=== PATIENT | male | born 1955 | race Caucasian/White ===

== ENCOUNTER → 2018-02-16 12:54 | Outpatient (CLI) | payer BC, SELFPAY ==
--- NOTE | 2018-02-16 13:04 | MRI_ITS ---
STUDY: MRI BRAIN WITH AND WITHOUT CONTRAST (ATTENTION INTERNAL AUDITORY CANALS - I.A.C.'s) REASON FOR EXAM: Male, 62 years old. 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 TECHNIQUE: Standardized multiplanar fat and water weighted pulse sequences were obtained. 10 ml of Gadavist contrast material was administered intravenously for the contrast portion of the examination. COMPARISON: None. FINDINGS: Normal bilateral temporal bones. Normal bilateral internal auditory canals. There is no demonstrated intracanalicular or cisternal vestibular schwannoma (acoustic neuroma). There is no enhancement of the bilateral VIIth or VIIIth cranial nerves. Normal bilateral cochlea, vestibules and semicircular canals. Normal size of the ventricles and extra-axial spaces for the patient's age. Normal white matter tracts of the supratentorial brain. There is no evidence for recent intracranial ischemia or other cause of cytotoxic edema on diffusion weighted imaging (DWI). Normal bilateral basal ganglia. Normal thalami. Normal flow voids within the major intracranial circulation suggesting patency by spin echo criteria. Normal venous enhancement. There is no enhancing intra-axial or extra-axial abnormality. There is no extra-axial fluid accumulation. Normal sella turcica, pituitary gland, infundibular stalk, optic chiasm and hypothalamus. Normal tectal plate and pineal gland. Normal midbrain, levy and medulla. Normal cerebellum. Normal basal cisterns. No demonstrated orbital abnormality, within the constraints of a routine brain study. Normal visualized paranasal sinuses. Normal calvarium and skull base. Normal visualized soft tissue structures. Normal visualized upper cervical spine. MRI/Brain W/WO Contrast IMPRESSION: 1. Normal unenhanced and enhanced MRI of the bilateral internal auditory canals (I.A.C's). 2. Normal MRI of the brain. Electronically Signed: Henry Raya DO at 16:54 EDT Tel , Service support ,
[2018-02-16 13:26] LABS: CREATININE FINGERSTICK 1.2 mg/dL (0.70-1.30); EGFR FINGERSTICK > 60.0000 mL/min (>60)
== END ==
PROVIDERS: Family Provider Internal Medicine; PCP Internal Medicine; Visit Provider Otolaryngology
DX: H91.90 Unspecified hearing loss, unspecified ear (principal); H93.13 Tinnitus, bilateral
CPT/HCPCS: 70553; A9585

== ENCOUNTER → 2019-02-15 08:52 | Outpatient (CLI) | payer BC, SELFPAY ==
[2019-02-15 10:27] LABS: ALB/GLOB Ratio 1.5 RATIO (0.9-2.4); AST(SGOT) 62 U/L (15-37); Alanine Aminotransfer ALT/SGPT 38 U/L (16-61); Albumin, Serum 4.8 g/dL (3.2-5.0); Alkaline Phosphatase 50 U/L (45-117); Anion Gap 4 (5-15); BUN 15 mg/dL (7-18); BUN/Creat Ratio 8.3 RATIO (10-20); Calcium,Total 8.9 mg/dL (8.5-10.1); Chloride 103 mmol/L (98-107); Cholesterol 337 mg/dL (200); EST Glomerular Filtration Rate 41 mL/min (>60); Est Glom Filt Rate - Afr Amer 50 mL/min (>60); Globulin 3.1 g/dL (2.2-4.2); Glucose 81 mg/dL (74-106); High Density Lipoprotein 57 mg/dL; Potassium 4.4 mmol/L (3.5-5.1); Protein, Total 7.9 g/dL (6.4-8.2); Sodium Level 137 mmol/L (136-145); Triglycerides 179 mg/dL; Very Low Density Lipoprotein 36 mg/dL (5-40)
[2019-02-15 10:31] LABS: Vitamin D,25 Hydroxy 7.9 ng/mL (29.95-100.01)
[2019-02-15 10:54] LABS: Absolute Lymphocyte Count 1.95 X10^3/ul (0.83-4.51); Absolute Neutrophil Count 2.2 X10^3/uL (2.0-7.7); Basophil# 0.03 X10^3/uL; Basophil% 0.6 % (0-1); Differential Indicated SCAN CRITERIA MET; Eosinophil# 0.14 X10^3/uL; Hematocrit 32.7 % (40-54); Hemoglobin 10.5 g/dl (13.0-16.5); Lymphocyte # 1.95 X10^3/ul (4.0); Lymphocyte % 41.6 % (19-41); Mean Corp Hgb Conc 32.1 g/gl (32-36); Mean Corpuscular Hgb 33.9 pg (27.0-32.0); Mean Corpuscular Volume 105.5 fL (80-94); Mean Platelet Vol. 9.7 fl (6.2-12.0); Monocyte# 0.32 X10^3/uL; Monocyte% 6.8 % (0-10); Neutrophil % 46.9 % (47-70); POSITIVE COUNT NO; POSITIVE DIFFERENTIAL NO; POSITIVE MORPHOLOGY YES; Platelet Count 244 K/mm3 (150-450); RBC Distribution Width CV 13.7 % (11.6-14.6); RBC Distribution Width SD 51.6 fl (35.1-43.9); White Blood Count 4.7 K/mm3 (4.4-11.0)
[2019-02-16 16:35] LABS: Vitamin B12 478 pg/mL (211-911)
[2019-02-16 16:37] LABS: Ferritin 373 ng/mL (26-388); Iron 94 ug/dL (65-175); Iron Binding Capacity,Total 368 ug/dL (250-450); PERCENT IRON SATURATION 25.5 % (15.0-55.0)
== END ==
PROVIDERS: Family Provider Family Medicine; PCP Family Medicine; Referring Provider Family Medicine; Visit Provider Family Medicine
DX: N28.9 Disorder of kidney and ureter, unspecified (principal); E78.5 Hyperlipidemia, unspecified; D64.9 Anemia, unspecified
CPT/HCPCS: 36415; 80053; 80061; 82306; 82607; 82728; 83540; 83550; 85025

== ENCOUNTER → 2019-02-16 09:01 | Outpatient (CLI) | payer BC, SELFPAY ==
[2017-08-20 10:39] VITALS: BMI 25.1
[2019-02-16 09:04] LABS: Bacteria 0 SEEN /hpf (None Seen); Mucous, Urine 0 SEEN /hpf (<or=2+); Red Blood Cells-Urine 0 SEEN /hpf (0-5); Squamous Epithelial Cells - UA 0 SEEN /hpf (0-5); White Blood Cells 0 SEEN /hpf (0-5)
[2019-02-16 09:55] LABS: Color, Urine Yellow (Yellow); Glucose, Dipstick Normal (Normal); Ketone-Dipstick Negative (Negative); Leukocyte Esterase-Dipstick Negative /ul (Negative); Nitrite-Dipstick Negative (Negative); Occult Blood-Urine Negative /ul (Negative); Protein-Dipstick Negative (Negative); Specific Gravity, Urine 1.015 (1.002-1.030); Urine Bilirubin Dipstick Negative (Negative); Urine Clarity Clear (Clear); Urine Urobilinogen Normal (Normal); Urine pH 6.5 (5.0 - 8.0)
== END ==
PROVIDERS: Family Provider Family Medicine; PCP Family Medicine; Referring Provider Family Medicine; Visit Provider Family Medicine
DX: N28.9 Disorder of kidney and ureter, unspecified (principal); E78.5 Hyperlipidemia, unspecified
CPT/HCPCS: 81001

== ENCOUNTER → 2019-02-22 08:04 | Outpatient (CLI) | payer BC, SELFPAY ==
[2017-08-20 10:39] VITALS: BMI 25.1
[2019-02-22 10:51] LABS: ALB/GLOB Ratio 1.7 RATIO (0.9-2.4); AST(SGOT) 78 U/L (15-37); Alanine Aminotransfer ALT/SGPT 46 U/L (16-61); Albumin, Serum 4.5 g/dL (3.2-5.0); Alkaline Phosphatase 45 U/L (45-117); Anion Gap 9 (5-15); BUN 11 mg/dL (7-18); BUN/Creat Ratio 7.1 RATIO (10-20); Calcium,Total 8.7 mg/dL (8.5-10.1); Chloride 99 mmol/L (98-107); Creatinine, Serum 1.55 mg/dL (0.70-1.30); EST Glomerular Filtration Rate 49 mL/min (>60); Est Glom Filt Rate - Afr Amer 59 mL/min (>60); Globulin 2.7 g/dL (2.2-4.2); Glucose 70 mg/dL (74-106); Potassium 4.1 mmol/L (3.5-5.1); Protein, Total 7.2 g/dL (6.4-8.2); Sodium Level 137 mmol/L (136-145)
[2019-02-23 14:31] LABS: HEPATITIS B SURFACE AG Negative (Negative); Hep B Surface Antibodies Non Reactive (.); Hep C Antibodies 0.2 s/co ratio (0.0-0.9)
== END ==
PROVIDERS: Family Provider Family Medicine; PCP Family Medicine; Referring Provider Family Medicine; Visit Provider Family Medicine
DX: D64.9 Anemia, unspecified (principal); R94.5 Abnormal results of liver function studies
CPT/HCPCS: 36415; 80053; 82746; 86706; 86803; 87340

== ENCOUNTER → 2019-03-23 09:02 | Outpatient (CLI) | payer BC, SELFPAY ==
[2017-08-20 10:39] VITALS: BMI 25.1
[2019-03-23 10:18] LABS: Absolute Lymphocyte Count 2.13 X10^3/ul (0.83-4.51); Absolute Neutrophil Count 2.8 X10^3/uL (2.0-7.7); Basophil# 0.03 X10^3/uL; Basophil% 0.5 % (0-1); Eosinophil# 0.21 X10^3/uL; Eosinophils% 3.7 % (0-5); Hematocrit 31.3 % (40-54); Hemoglobin 10.4 g/dl (13.0-16.5); Lymphocyte # 2.13 X10^3/ul (4.0); Lymphocyte % 37.6 % (19-41); Mean Corp Hgb Conc 33.2 g/gl (32-36); Mean Corpuscular Hgb 33.7 pg (27.0-32.0); Mean Corpuscular Volume 101.3 fL (80-94); Mean Platelet Vol. 10.2 fl (6.2-12.0); Monocyte# 0.52 X10^3/uL; Monocyte% 9.2 % (0-10); Neutrophil # 2.76 X10^3/uL (2.7-7.7); Neutrophil % 48.8 % (47-70); Platelet Count 205 K/mm3 (150-450); RBC Distribution Width CV 13.5 % (11.6-14.6); RBC Distribution Width SD 49.9 fl (35.1-43.9); Red Blood Count 3.09 M/mm3 (4.6-6.2); White Blood Count 5.7 K/mm3 (4.4-11.0)
[2019-03-23 10:19] LABS: POSITIVE COUNT NO; POSITIVE DIFFERENTIAL NO; POSITIVE MORPHOLOGY NO
[2019-03-23 11:07] LABS: ALB/GLOB Ratio 1.7 RATIO (0.9-2.4); AST(SGOT) 159 U/L (15-37); Alanine Aminotransfer ALT/SGPT 125 U/L (16-61); Albumin, Serum 4.5 g/dL (3.2-5.0); Alkaline Phosphatase 65 U/L (45-117); Anion Gap 8 (5-15); BUN 20 mg/dL (7-18); BUN/Creat Ratio 11.6 RATIO (10-20); Calcium,Total 8.8 mg/dL (8.5-10.1); Chloride 102 mmol/L (98-107); Creatinine, Serum 1.72 mg/dL (0.70-1.30); EST Glomerular Filtration Rate 43 mL/min (>60); Est Glom Filt Rate - Afr Amer 52 mL/min (>60); Globulin 2.7 g/dL (2.2-4.2); Glucose 80 mg/dL (74-106); Magnesium 1.8 mg/dL (1.6-2.6); Potassium 3.6 mmol/L (3.5-5.1); Protein, Total 7.2 g/dL (6.4-8.2); Sodium Level 140 mmol/L (136-145)
== END ==
PROVIDERS: Family Provider Family Medicine; PCP Family Medicine; Referring Provider Family Medicine; Visit Provider Family Medicine
DX: D53.9 Nutritional anemia, unspecified (principal); R94.5 Abnormal results of liver function studies; I49.9 Cardiac arrhythmia, unspecified
CPT/HCPCS: 36415; 80053; 83735; 85025

== ENCOUNTER → 2019-04-03 09:10 | Outpatient (CLI) | payer BC, SELFPAY ==
--- NOTE | 2019-04-03 09:15 | US_ITS ---
STUDY: ABDOMINAL ULTRASOUND - RIGHT UPPER QUADRANT REASON FOR VISIT: Male, 63 years old. Elevated liver function tests TECHNIQUE: Ultrasound evaluation of the right upper quadrant was performed with real-time and static lyons-scale imaging. TECHNICAL QUALITY: Satisfactory COMPARISON: None. FINDINGS: Liver: The liver measures 16.7 cm. There is normal echogenicity of the liver. The bile ducts are within normal limits. There is hepatic color flow. The direction of portal flow is hepatopetal. There is no demonstrated mass lesion. Gallbladder: Normal distended gallbladder. The gallbladder wall measures 2 mm. There is a negative sonographic Araujo's sign. There is no pericholecystic fluid. There are no gallstones. Common Bile Duct (C.B.D.): The common bile duct measures 3.3 mm. Pancreas: Normal size of the head, body and tail of the pancreas. There is normal echogenicity of the pancreas. There is no demonstrated pancreatic mass or cyst. Right Kidney: Normal size of the right kidney. The right kidney measures 10.4 cm. Normal renal cortex. The right cortex measures 1.5 cm. There is no demonstrated renal mass or cyst. There is no right hydronephrosis. US/Liver IMPRESSION: Normal right upper quadrant ultrasound examination. Sonographically normal features of the liver parenchyma, gallbladder, biliary tree. Electronically Signed: Mulugeta Jeffers MD at 8:59 EDT Tel , Service support ,
== END ==
PROVIDERS: Family Provider Family Medicine; PCP Family Medicine; Referring Provider Family Medicine; Visit Provider Family Medicine
DX: R94.5 Abnormal results of liver function studies (principal)
CPT/HCPCS: 76705

== ENCOUNTER → 2019-04-17 08:19 | Outpatient (CLI) | payer BC, SELFPAY ==
[2017-08-20 10:39] VITALS: BMI 25.1
--- NOTE | 2019-04-17 08:21 | US_ITS ---
STUDY: RENAL ULTRASOUND - COMPLETE REASON FOR EXAM: Male, 63 years old. Hypertension TECHNIQUE: Ultrasound evaluation of the kidneys was performed with real-time and static ramírez-scale imaging. COMPARISON: None. FINDINGS: RIGHT KIDNEY: Normal location of the right kidney, which is normal in size. The right kidney measures 10.1 x 5.1 x 4.9 cm. There is a normal cortex of the right kidney. The renal cortex measures 1.7 cm. There is no right renal mass or cyst. There are no right renal calculi. There is no right hydronephrosis. DISTAL RIGHT URETER: There is non-visualization of the distal right ureter. There is no demonstrated right ureterovesical junction calculus. There is a visualized right ureteral jet. LEFT KIDNEY: Normal location of the left kidney, which is normal in size. The left kidney measures 10.8 x 6.4 x 5.8 cm. There is a normal cortex of the left kidney. The renal cortex measures 1.5 cm. There is a 1.9 cm simple cyst. There are no left renal calculi. There is no left hydronephrosis. DISTAL LEFT URETER: There is non-visualization of the distal left ureter. There is no demonstrated left ureterovesical junction calculus. There is a visualized left ureteral jet. AORTA: There is no elongation or tortuosity of the abdominal aorta. I.V.C.: The IVC is patent. BLADDER: The distended urinary bladder has a volume of 705.85 ml. The empty urinary bladder has a volume of 493.91 ml. There is a normal wall thickness of the distended urinary bladder. There is no demonstrated mass within the urinary bladder. There are no demonstrated bladder calculi. US/Kidney and Bladder IMPRESSION: There is an abnormally large postvoid residual within the bladder at 493.91 mL. This places the patient at risk for urinary reflux and UTIs. No obstructive uropathy, there is a simple 1.9 cm left renal cyst Electronically Signed: Dillan Tadeo MD at 11:30 EDT , Service support ,
== END ==
PROVIDERS: Family Provider Family Medicine; PCP Family Medicine; Referring Provider Family Medicine; Visit Provider Family Medicine
DX: I12.9 Hypertensive chronic kidney disease with stage 1 through stage 4 chronic kidney disease, or unspecified chronic kidney disease (principal); N18.3 Chronic kidney disease, stage 3 (moderate)
CPT/HCPCS: 76770

== ENCOUNTER → 2019-04-24 07:47 | Outpatient (CLI) | payer BC, SELFPAY ==
[2017-08-20 10:39] VITALS: BMI 25.1
--- NOTE | 2019-04-24 07:53 | RDU_ITS ---
Reason For Study: stage 3 CKD, HTN Right Renal Artery Left Renal Artery Right renal artery ostium Left renal artery ostium 106/23.1 127.8/37.8 RSV/EDV. PSV/EDV. Right renal artery proximal Left renal artery proximal PSV/EDV 136.5/46.5 PSV/EDV. 137.0/38.6 . Right renal artery mid 138.1/49.2 Left renal artery mid 124.1/41.2 PSV/EDV. PSV/EDV . Right renal artery distal Left renal artery distal 157.8/51.6 149.9/49.2 PSV/EDV. PSV/EDV. Right RAR 1.5. Left RAR 1.6. Right Renal Parenchyma Left Renal Parenchyma Upper Pole Medula 49.1/16.7 Left upper pole medulla 31.0/12.7. PSV/EDV. PSV/EDV . Right upper pole medulla EDR .34 . Left upper pole medulla EDR .41 . Right upper pole medulla R.I. .66 . Left upper pole medulla R.I. .59 . Upper Nestor Cortx 23.7/10.9 PSV/EDV. UP Cortex 20.8/8.2 PSV/EDV. Right upper pole cortex EDR .46 . Left upper pole cortex EDR .39 . Right upper pole cortex R.I. .54 . Left upper pole cortex R.I. .61 . Right lower Pole medulla 29.1/11.8 Left lower Pole medulla 43.4/13.7 PSV/EDV . PSV/EDV . Right lower pole medulla EDR .4 . Left lower pole medulla EDR .32 . Right lower pole medulla R.I. .6 . Left lower pole medulla R.I. .68 . Lower Pole Cortex 24.6/9.0 PSV/EDV. Lower Pole Cortx 16.4/8.2 PSV/EDV. Right lower pole cortex EDR .37 . Left lower pole cortex EDR .5 . Right lower pole cortex R.I. .63 . Left lower pole cortex R.I. .5 . Right Renal Hilar Left Renal Hilar Right hilar acceleration time 50 Left hilar acceleration time 40.0 m/sec. m/sec. Right Hilar avg 76.6/28.2 PSV/EDV. LT Hilar avg 40.5/13.4 PSV/EDV . Right Renal Dimensions Left Renal Dimensions Right kidney size 10.5 cm . Left kidney size 10.9 cm . Right cortical dimension 1.53 cm . Left cortical dimension 1.57 cm . Aorta Proximal abdominal aorta 1.67 x 1.75 cm . Proximal abdominal aorta peak systolic velocity is 99.0 cm/sec . Distal abdominal aorta 1.31 x 1.51 cm . Distal abdominal aorta peak systolic velocity is 53.3 cm/sec . Normal renal veins bilat. Interpretation Summary Dimensions of the intra-abdominal aorta appear normal, without evidence of aneurysmal dilatation. Renal artery velocities are bilaterally normal. Acceleration times are normal bilaterally. Renal- aortic ratios are also bilaterally normal. There is no evidence of hemodynamically significant renal artery stenosis on either side. Renovascular resistance appears to be bilaterally normal . The right cortical dimension is increased. The left cortical dimension is increased. Kidneys appear normal in size bilaterally. Ordering Physician: Sourav Giraldo Performed By: Cliff Davalos RVT
== END ==
PROVIDERS: Family Provider Family Medicine; PCP Family Medicine; Referring Provider Family Medicine; Visit Provider Family Medicine
DX: I12.9 Hypertensive chronic kidney disease with stage 1 through stage 4 chronic kidney disease, or unspecified chronic kidney disease (principal); N18.3 Chronic kidney disease, stage 3 (moderate)
CPT/HCPCS: 93975

== ENCOUNTER → 2019-05-21 08:08 | Outpatient (CLI) | payer BC, SELFPAY ==
[2019-05-21 10:03] LABS: Absolute Lymphocyte Count 1.56 X10^3/ul (0.83-4.51); Absolute Neutrophil Count 1.9 X10^3/uL (2.0-7.7); Basophil# 0.01 X10^3/uL; Basophil% 0.3 % (0-1); Eosinophil# 0.14 X10^3/uL; Eosinophils% 3.7 % (0-5); Hematocrit 29.3 % (40-54); Hemoglobin 9.3 g/dl (13.0-16.5); Lymphocyte # 1.56 X10^3/ul (4.0); Lymphocyte % 41.3 % (19-41); Mean Corp Hgb Conc 31.7 g/gl (32-36); Mean Corpuscular Hgb 33.5 pg (27.0-32.0); Mean Corpuscular Volume 105.4 fL (80-94); Mean Platelet Vol. 10.7 fl (6.2-12.0); Monocyte% 5.3 % (0-10); Neutrophil # 1.87 X10^3/uL (2.7-7.7); Neutrophil % 49.4 % (47-70); Platelet Count 148 K/mm3 (150-450); RBC Distribution Width CV 13.9 % (11.6-14.6); RBC Distribution Width SD 51.7 fl (35.1-43.9); Red Blood Count 2.78 M/mm3 (4.6-6.2); White Blood Count 3.8 K/mm3 (4.4-11.0)
[2019-05-21 10:04] LABS: POSITIVE COUNT NO; POSITIVE DIFFERENTIAL NO; POSITIVE MORPHOLOGY NO
[2019-05-21 10:23] LABS: ALB/GLOB Ratio 1.3 RATIO (0.9-2.4); AST(SGOT) 535 U/L (15-37); Alanine Aminotransfer ALT/SGPT 641 U/L (16-61); Albumin, Serum 4.1 g/dL (3.2-5.0); Alkaline Phosphatase 74 U/L (45-117); Anion Gap 5 (5-15); BUN 13 mg/dL (7-18); BUN/Creat Ratio 8.7 RATIO (10-20); Calcium,Total 8.3 mg/dL (8.5-10.1); Chloride 103 mmol/L (98-107); Cholesterol 117 mg/dL (200); EST Glomerular Filtration Rate 50 mL/min (>60); Est Glom Filt Rate - Afr Amer 61 mL/min (>60); Globulin 3.1 g/dL (2.2-4.2); Glucose 80 mg/dL (74-106); High Density Lipoprotein 72 mg/dL; Potassium 4.1 mmol/L (3.5-5.1); Protein, Total 7.2 g/dL (6.4-8.2); Sodium Level 140 mmol/L (136-145); Triglycerides 63 mg/dL; Very Low Density Lipoprotein 13 mg/dL (5-40)
[2019-05-21 11:04] LABS: Vitamin D,25 Hydroxy 91.7 ng/mL (29.95-100.01)
== END ==
PROVIDERS: Family Provider Family Medicine; PCP Family Medicine; Visit Provider Family Medicine
DX: D53.9 Nutritional anemia, unspecified (principal); R94.5 Abnormal results of liver function studies; E78.5 Hyperlipidemia, unspecified; E55.9 Vitamin D deficiency, unspecified
CPT/HCPCS: 36415; 80053; 80061; 82306; 85025

== ENCOUNTER → 2019-05-23 08:15 | Outpatient (CLI) | payer BC, SELFPAY ==
[2019-05-23 10:34] LABS: Vitamin B12 694 pg/mL (211-911)
[2019-05-23 11:14] LABS: ALB/GLOB Ratio 1.3 RATIO (0.9-2.4); AST(SGOT) 374 U/L (15-37); Alanine Aminotransfer ALT/SGPT 526 U/L (16-61); Albumin, Serum 4.3 g/dL (3.2-5.0); Alkaline Phosphatase 71 U/L (45-117); Anion Gap 8 (5-15); BUN 16 mg/dL (7-18); BUN/Creat Ratio 10.1 RATIO (10-20); CPK Total, Creatine Kinase 4742 U/L (39-308); Calcium,Total 8.9 mg/dL (8.5-10.1); Chloride 99 mmol/L (98-107); Creatinine, Serum 1.59 mg/dL (0.70-1.30); EST Glomerular Filtration Rate 47 mL/min (>60); Est Glom Filt Rate - Afr Amer 57 mL/min (>60); Ferritin 773 ng/mL (26-388); Globulin 3.2 g/dL (2.2-4.2); Glucose 76 mg/dL (74-106); Iron 112 ug/dL (65-175); Iron Binding Capacity,Total 389 ug/dL (250-450); LDH 1104 U/L (87-241); Magnesium 1.8 mg/dL (1.6-2.6); Potassium 3.9 mmol/L (3.5-5.1); Protein, Total 7.5 g/dL (6.4-8.2); Sodium Level 137 mmol/L (136-145)
[2019-05-25 12:05] LABS: Haptoglobin 94 mg/dL (34-200)
== END ==
PROVIDERS: Family Provider Family Medicine; PCP Family Medicine; Referring Provider Family Medicine; Visit Provider Family Medicine
DX: R25.2 Cramp and spasm (principal); D53.9 Nutritional anemia, unspecified; R94.5 Abnormal results of liver function studies
CPT/HCPCS: 36415; 80053; 82550; 82607; 82728; 82746; 83010; 83540; 83550; 83615; 83735

== ENCOUNTER → 2019-05-24 14:02 | Outpatient (CLI) | payer BC, SELFPAY ==
[2019-05-24 15:42] LABS: Immature Platelet Fraction 2.5 % (1.0-7.9); RET-HE 39.8 pg (30-35); Reticulocyte Count 1.45 % (0.5-1.5)
[2019-05-24 15:58] LABS: CPK Total, Creatine Kinase 4019 U/L (39-308)
== END ==
PROVIDERS: Family Provider Family Medicine; PCP Family Medicine; Referring Provider Family Medicine; Visit Provider Family Medicine
DX: M62.82 Rhabdomyolysis (principal); D64.9 Anemia, unspecified
CPT/HCPCS: 36415; 82550; 85045

== ENCOUNTER → 2019-05-25 14:50 | Outpatient (CLI) | payer BC, SELFPAY ==
[2017-08-20 10:39] VITALS: BMI 25.1
[2019-05-25 16:29] LABS: CPK Total, Creatine Kinase 4470 U/L (39-308)
== END ==
PROVIDERS: Family Provider Family Medicine; PCP Family Medicine; Referring Provider Family Medicine; Visit Provider Family Medicine
DX: M62.82 Rhabdomyolysis (principal)
CPT/HCPCS: 36415; 82550

== ENCOUNTER → 2019-05-29 13:44 | Outpatient (CLI) | payer BC, SELFPAY ==
[2017-08-20 10:39] VITALS: BMI 25.1
[2019-05-29 16:38] LABS: CPK Total, Creatine Kinase 4449 U/L (39-308)
== END ==
PROVIDERS: Family Provider Family Medicine; PCP Family Medicine; Referring Provider Family Medicine; Visit Provider Family Medicine
DX: R74.8 Abnormal levels of other serum enzymes (principal)
CPT/HCPCS: 36415; 82550

== ENCOUNTER 2019-05-29 17:25 | Inpatient (IN) | payer BC, SELFPAY ==
[2019-05-29 17:25] VITALS: BP 143/75; PULSE 69; RESP 16; TEMP 36.6; O2SAT 99; BMI 29.5
--- NOTE | 2019-05-29 17:46 | ED.VISSUMM ---
- ER Visit Summary Date of Service: 05/29/19 Chief Complaint: Elevated CPK History of Present Illness: The patient is a 63 M who presents with an elevated CPK that was noticed today. Patient had lab work done by his primary care physician which showed an elevated CPK of 4449. Patient was then referred to the emergency department. Patient states he had been on Crestor for the past 2 months and has been having myalgias. Patient also admits to some arthralgias in his lower extremities. Patient denies any fevers or chills. Patient denies any trauma or injuries. Patient denies any recent falls. Patient denies any dysuria or hematuria. Patient denies any dark urine. Patient denies any flank pain. Patient denies any nausea or vomiting. Physical Examination: Vital signs are stable. Patient is afebrile. Patient is in no acute distress. Oromucosa is pink and moist. Neck is supple. Trachea is midline. There is no JVD noted. Heart was regular rate and rhythm. Lungs are clear and equal bilaterally. Abdomen is soft. Bowel sounds are normal. There is no tenderness. Cranial nerves II through XII are intact. There are no focal motor or sensory deficits noted. Extremities are intact. There is good range of motion in all extremities. Test Results: CPK from earlier today was 4449. Creatinine was 1.61 which was only slightly increased from previous results. BUN was 20. Electrolytes were essentially within normal limits. ALT was slightly elevated 242 and AST was slightly elevated at 154. Urinalysis showed a pH of 7.0 and was otherwise normal. Emergency Department Course and Treatment: Patient was given IV fluids. Patient was given 50 mEq of sodium bicarbonate. Case was discussed with the hospitalist. Will admit the patient to his service. Disposition: Admit to hospital Impression: 1. Rhabdomyolysis This note was generated with Fees[employer] dictation software. It may contain incorrect words, spelling, and punctuation that were not noted in review of the chart prior to signing ED Disposition - Plan for ED Patient: Disposition: [facility]
[2019-05-29] MEDS: 0.9% Normal Saline 1,000 ML 1000 ML IV ×2 (17:56→20:29)
[2019-05-29] MEDS: Sodium Bicarbonate 8.4% 50 ML Syringe 50 MEQ IV (18:13)
[2019-05-29 18:38] LABS: ALB/GLOB Ratio 1.3 RATIO (0.9-2.4); AST(SGOT) 154 U/L (15-37); Alanine Aminotransfer ALT/SGPT 242 U/L (16-61); Albumin, Serum 4.5 g/dL (3.2-5.0); Alkaline Phosphatase 71 U/L (45-117); Anion Gap 5 (5-15); BUN 20 mg/dL (7-18); BUN/Creat Ratio 12.4 RATIO (10-20); Calcium,Total 9.1 mg/dL (8.5-10.1); Chloride 99 mmol/L (98-107); Creatinine, Serum 1.61 mg/dL (0.70-1.30); EST Glomerular Filtration Rate 47 mL/min (>60); Est Glom Filt Rate - Afr Amer 56 mL/min (>60); Estimated Creatinine Clearance 49.75 ml/min; Globulin 3.4 g/dL (2.2-4.2); Glucose 150 mg/dL (74-106); Potassium 3.4 mmol/L (3.5-5.1); Protein, Total 7.9 g/dL (6.4-8.2); Sodium Level 135 mmol/L (136-145)
[2019-05-29 18:54] LABS: Absolute Lymphocyte Count 1.95 X10^3/ul (0.83-4.51); Absolute Neutrophil Count 2.7 X10^3/uL (2.0-7.7); Basophil# 0.03 X10^3/uL; Basophil% 0.6 % (0-1); Eosinophil# 0.21 X10^3/uL; Eosinophils% 4.1 % (0-5); Hematocrit 33.9 % (40-54); Hemoglobin 11.3 g/dl (13.0-16.5); Lymphocyte # 1.95 X10^3/ul (4.0); Lymphocyte % 38.2 % (19-41); Mean Corp Hgb Conc 33.3 g/gl (32-36); Mean Corpuscular Hgb 34.3 pg (27.0-32.0); Mean Platelet Vol. 10.5 fl (6.2-12.0); Monocyte% 3.9 % (0-10); Neutrophil # 2.71 X10^3/uL (2.7-7.7); POSITIVE COUNT NO; POSITIVE DIFFERENTIAL NO; POSITIVE MORPHOLOGY NO; Platelet Count 191 K/mm3 (150-450); RBC Distribution Width CV 13.9 % (11.6-14.6); RBC Distribution Width SD 52.2 fl (35.1-43.9); Red Blood Count 3.29 M/mm3 (4.6-6.2); White Blood Count 5.1 K/mm3 (4.4-11.0)
[2019-05-29 19:22] LABS: Bacteria 0 SEEN /hpf (None Seen); Mucous, Urine 0 SEEN /hpf (<or=2+); Squamous Epithelial Cells - UA 0 SEEN /hpf (0-5); White Blood Cells 0 SEEN /hpf (0-5)
[2019-05-29 19:30] LABS: Color, Urine Straw (Yellow); Glucose, Dipstick Normal (Normal); Ketone-Dipstick Negative (Negative); Leukocyte Esterase-Dipstick Negative /ul (Negative); Nitrite-Dipstick Negative (Negative); Occult Blood-Urine Negative /ul (Negative); Protein-Dipstick Negative (Negative); Urine Bilirubin Dipstick Negative (Negative); Urine Clarity Clear (Clear); Urine Urobilinogen Normal (Normal)
[2019-05-29 19:56] LABS: Red Blood Cells-Urine 0-5 SEEN /hpf (0-5)
[2019-05-29 20:30] VITALS: BP 143/61; PULSE 71; RESP 16; O2SAT 97
--- NOTE | 2019-05-29 20:46 | PCM.HP.STD ---
Problem List (1) Rhabdomyolysis Status: Acute History of Present Illness Date of Admission: 05/29/19 Chief Complaint: abnormal outpatient lab. The patient is a 63 year old M with a significant history of hyperlipidemia; and BPH who presented to the emergency department because of abnormal outpatient labs. Reportedly his CPK taken on the same day of presentation was 4,449. Patient complains of muscle pain in his lower extremities. Also while at the emergency department he complained of pain that span across his ribs. Also his liver enzymes was found to be elevated at the emergency department. In emergency department patient was given normal saline IV infusion and bicarbonate. Patient was started on Crestor about 2 months ago. Past Medical History Medical History: Medical History (Last Updated 05/29/19 @ 21:51 by Rutsam Vaughn MD) HLD (hyperlipidemia) E78.5 Allergies Penicillins Adverse Reaction (Verified 08/20/17 10:39) Hives Home Medications: Ambulatory Orders Medication Instructions Recorded Tamsulosin HCl 0.4 mg PO DAILY 05/29/19 Surgical History: herniorrhaphy, rotator cuff repair, - - Patella tendon surgery; feet SURGERY Lives: Alone Smoking Status: Former smoker Alcohol: Occasional - *Family History Maternal History Items: Diabetes Paternal History Items: Cancer, Diabetes Review of Systems Constitutional: Denies: Chills, Fever, Weight Change HEENT: Denies: Head Aches, Sinus Congestion, Sinus Drainage Cardiovascular: Denies: Chest Pain, Palpitations Respiratory: Denies: Cough, Shortness of breath at rest, Sputum production Gastrointestinal: Denies: Abdominal Pain, Nausea, Vomiting Genitourinary: Denies: Dysuria Musculoskeletal: Reports: Joint Pain, Muscle pain. Denies: Joint Tenderness Skin: Denies: Rash, Wounds Neurological: Denies: Numbness, Tingling, Focal weakness Psychiatric: Denies: Anxiety, Depression, Homicidal Ideations, Suicidal Ideations Hematologic/ Lymphatic: Denies: Easy Bruising, Easy Bleeding VTE Information - Inpt Only VTE Present on Admission: No VTE Mechan Device Prophylaxis: None VTE Pharm Prophylaxis ordered?: Yes Patient Problems: Active and Suspected Problems (Last Updated 05/29/19 @ 21:51 by Rustam Vaughn MD) Rhabdomyolysis (Acute) - Physical Exam General: Alert, Oriented x3, Cooperative HEENT: Atraumatic, PERRLA, EOMI, Normocephalic Neck: Supple, No JVD, Negative Carotid Bruits Lungs: Clear to auscultation, Normal air movement Cardiovascular: Regular rate, No murmurs Abdomen: Bowel Sounds Present, Soft, Non Tender Extremities: No edema, Capillary Refill Less than 3 Seconds Skin: No rashes, No breakdown Musculoskeletal: No Tenderness to Palpation of Joints or Extremities Neurological: Cranial nerves II-XII grossly intact Psych/Mental Status: Normal Affect, Appropriate Vital Signs Temp Pulse Resp BP Pulse Ox 97.8 F 71 16 143/61 H 97 05/29/19 17:25 05/29/19 20:30 05/29/19 20:30 05/29/19 20:30 05/29/19 20:30 Oxygen Delivery Method Room Air Weight: 93.4 kg Body Mass Index (BMI) 29.5 Laboratory Tests Past 24 Hrs 05/29/19 05/29/19 05/29/19 17:55 17:55 19:15 WBC 5.1 RBC 3.29 L Hgb 11.3 L Hct 33.9 L MCV 103.0 H MCH 34.3 H MCHC 33.3 RDW 13.9 RDW Differential 52.2 H Plt Count 191 MPV 10.5 Immature Gran % (Auto) 0.200 Neut % (Auto) 53.0 Lymph % (Auto) 38.2 Perkins % (Auto) 3.9 Eos % (Auto) 4.1 Baso % (Auto) 0.6 Absolute Neuts (auto) 2.7 Absolute Lymphs (auto) 1.95 Total Counted Not Reportable Sodium 135 L Potassium 3.4 L Chloride 99 Carbon Dioxide 31.0 Anion Gap 5 BUN 20 H Creatinine 1.61 H Estim Creat Clear Calc 49.75 Est GFR (MDRD) Af Amer 56 L Est GFR (MDRD) Non-Af 47 L BUN/Creatinine Ratio 12.4 Glucose 150 H Calcium 9.1 Total Bilirubin 0.50 AST 154 H ALT 242 H Alkaline Phosphatase 71 Total Protein 7.9 Albumin 4.5 Globulin 3.4 Albumin/Globulin Ratio 1.3 Urine Color Straw Urine Clarity Clear Urine pH 7.0 Ur Specific [place] 1.010 Urine Protein Negative Urine Glucose (UA) Normal Urine Ketones Negative Urine Occult Blood Negative Urine Nitrite Negative Urine Bilirubin Negative Urine Urobilinogen Normal Ur Leukocyte Esterase Negative Urine RBC 0-5 SEEN Urine WBC 0 SEEN Ur Squamous Epith Cells 0 SEEN Urine Bacteria 0 SEEN Urine Mucus 0 SEEN Assessment/Plan All Active Problems (Last Updated 05/29/19 @ 21:51 by Rustam Vaughn MD) Rhabdomyolysis (Acute) The patient is a 63 year old M with a significant history of hyperlipidemia; and BPH who was recently started on Crestor with elevated CPK and LFT consistent with rhabdomyolysis Rhabdomyolysis Patient received normal saline IV fluid and bicarbonate emergency department. We will continue patient on normal saline. Trend CPK. Hold Crestor. Elevated liver enzymes. Review of labs shows that in 2019 patient of heart elevated liver enzymes If his Crestor was started about 2 months ago then his elevated liver enzymes preceded his Crestor use. In any case Crestor may be worsening his elevated liver enzymes. Hold Crestor for now. Hypokalemia Mild Replaced. Trend BMP. Hyponatremia Mild Replaced Trend BMP BPH Flomax continued DVT prophylaxis Subcutaneous Lovenox ordered. Code Visit OBSV E&M: 14895 Initial observation care L3
[2019-05-29 22:07] VITALS: BMI 28.0
[2019-05-29 22:13] VITALS: BMI 28.1
[2019-05-29 22:29] VITALS: BP 125/76; PULSE 52; RESP 14; TEMP 36.4; O2SAT 98
[2019-05-29] MEDS: 0.9% Normal Saline 1,000 ML 150 ML IV (22:37)
[2019-05-30] VITALS (11 sets, daily range): BP systolic 107–140; BP diastolic 70–90; PULSE 44–65; RESP 16; TEMP 36.3–36.6; O2SAT 95–97
[2019-05-30] MEDS: 0.9% Normal Saline 1,000 ML 150 ML IV ×2 (04:44→11:22)
--- NOTE | 2019-05-30 04:57 | EKG12_ITS ---
Test Reason : BRADYCARDIA Blood Pressure : / mmHG Vent. Rate : 042 BPM Atrial Rate : 042 BPM P-R Int : 184 ms QRS Dur : 132 ms QT Int : 520 ms P-R-T Axes : 080 072 065 degrees QTc Int : 434 ms Marked sinus bradycardia Right bundle branch block Abnormal ECG Confirmed by JOVANY CHUNG, ELKIN ([id number]), state editor LILLY TOTH ([id number]) on 06/04/2019 1:56:11 PM Referred By: JANA Confirmed By:ELKIN MANZO MD
[2019-05-30 07:37] LABS: Anion Gap 8 (5-15); BUN 17 mg/dL (7-18); BUN/Creat Ratio 12.7 RATIO (10-20); CPK Total, Creatine Kinase 3753 U/L (39-308); Calcium,Total 8.1 mg/dL (8.5-10.1); Chloride 105 mmol/L (98-107); Creatinine, Serum 1.34 mg/dL (0.70-1.30); EST Glomerular Filtration Rate 57 mL/min (>60); Est Glom Filt Rate - Afr Amer 70 mL/min (>60); Estimated Creatinine Clearance 59.77 ml/min; Glucose 78 mg/dL (74-106); Potassium 4.2 mmol/L (3.5-5.1); Sodium Level 140 mmol/L (136-145)
[2019-05-30] MEDS: Tamsulosin HCl 0.4 MG Capsule PO (09:39)
[2019-05-30] MEDS: Enoxaparin 40 MG/0.4 ML Syringe SC (09:39)
[2019-05-30 09:58] LABS: Magnesium 1.7 mg/dL (1.6-2.6)
--- NOTE | 2019-05-30 13:20 | CASEMGMT ---
RN SUJEY Face to Face with patient for initial transition planning/care coordination assessment. RN CM introduced self and role at [facility]. Patient lying in bed, alert and oriented. Patient willing to participate in assessment and is able to answer all questionsappropriately. Care providers, pharmacy, and demographics verified. Patient wishes to discharge home, denies need for home health at this time. Patient states he has no further needs or concerns at this time. CM to follow for discharge planning needs thatmay arise. PCP: Kristal Specialists: None Preferred Pharmacy: [facility] Insurance: [place] Prescription Benefit: yes Living Will/HPOA: yes, brother Timothy Drew LNOK: Brother Living Arrangements: patient lives alone in 1 story home with 2 steps to enter the home. Transportation: self/brother DME/HHC: Patient denies need for DME and HHC. Disposition Plan: Patient to discharge home with family support and follow-up plans in place. Grazyna JONES, RN, CM
--- NOTE | 2019-05-30 14:07 | CHAPLAIN ---
Type of Pastoral Visit _x__ Initial Visit ___ Follow-up Visit ___ On-call Visit ___ General Patient Visit ___ Spiritual Assessment ___ Family Conference ___ Bereavement ___ Rapid Response ___ Code Blue ___ Other (describe below) Pastoral Care Referral From _x__ Patient ___ Family ___ Nurse ___ Physician ___ Engineering Inspector ___ Cut Off Operator Scorer ___ Other (describe below) Sacrament/Intervention _x__ Active listening ___ Anointing ___ Congregational ___ Bereavement ___ Communion ___ Jsesica exploration ___ ___ Life review ___ Prayer ___ Reconciliation ___ Sacrament of Sick ___ Supportive presence ___ Wedding ___ Other (describe below) Pastoral Comments
--- NOTE | 2019-05-30 14:16 | PN_ITS ---
Patient Problems: Active and Suspected Problems (Last Updated 05/29/19 @ 21:51 by Rustam Vaughn MD) Rhabdomyolysis (Acute) Subjective: Patient was recently started on Crestor about 2 months ago. Admitted with rhabdomyolysis. Patient had lipid profile done as an outpatient and states his total cholesterol was about 337 in January 2019 and was started on Crestor, dose unclear but last lipid profile as per the patient brought the cholesterol down to 117 in April 2019 as per the patient. Patient complains of mild lower extremity weakness but strength is 5/5. Complain of muscle pain. Vitals/I&O's: Vital Signs Temp Pulse Resp BP Pulse Ox 97.7 F L 65 16 140/90 H 96 05/30/19 09:36 05/30/19 09:40 05/30/19 09:36 05/30/19 09:36 05/30/19 09:36 Oxygen Delivery Method Room Air Weight: 196 lb 3.382 oz Body Mass Index (BMI) 28.0 Intake and Output for Last 24 Hours 05/28/19 05/29/19 05/30/19 23:59 23:59 23:59 Intake Total 2967 / 2967 Output Total 2950 / 2950 Balance General: Alert, Oriented x3, Cooperative HEENT: Atraumatic, PERRLA, EOMI, Normocephalic Neck: Supple, No JVD, Negative Carotid Bruits Lungs: Clear to auscultation, No rhonchi, No wheeze, No rales, Diminished Cardiovascular: Regular rate, Regular Rhythm, Normal S1, Normal S2, No murmurs Abdomen: Bowel Sounds Present, Soft, Non Tender, Non-Distended Extremities: No edema, Capillary Refill Less than 3 Seconds Skin: No rashes, No breakdown Musculoskeletal: No Tenderness to Palpation of Joints or Extremities, Arthritic Changes, - - No tenderness to the palpation of thigh or calf muscles. Lymphatic: No Cervical, Supraclavicular, or Inguinal Adenopathy Neurological: Cranial nerves II-XII grossly intact, Deep Tendon Reflexes 2+/4 and Symmetrical, Neuro grossly intact, Motor Exam 5/5 strength throughout - At major joints are knee and hip joints Psych/Mental Status: Normal Affect, Appropriate Laboratory Results 05/29/19 17:55: WBC 5.1, RBC 3.29 L, Hgb 11.3 L, Hct 33.9 L, MCV 103.0 H, MCH 34.3 H, MCHC 33.3, RDW 13.9, RDW Differential 52.2 H, Plt Count 191, MPV 10.5, Immature Gran % (Auto) 0.200, Neut % (Auto) 53.0, Lymph % (Auto) 38.2, Leon % (Auto) 3.9, Eos % (Auto) 4.1, Baso % (Auto) 0.6, Absolute Neuts (auto) 2.7, Abs olute Lymphs (auto) 1.95, Total Counted Not Reportable 05/29/19 17:55: Sodium 135 L, Potassium 3.4 L, Chloride 99, Carbon Dioxide 31.0, Anion Gap 5, BUN 20 H, Creatinine 1.61 H, Estim Creat Clear Calc 49.75, Est GFR (MDRD) Af Amer 56 L, Est GFR (MDRD) Non-Af 47 L, BUN/Creatinine Ratio 12.4, Glucose 150 H, Calcium 9.1, Total Bilirubin 0.50, AST 154 H, ALT 242 H, Alkaline Phosphatase 71, Total Protein 7.9, Albumin 4.5, Globulin 3.4, Albumin/Globulin Ratio 1.3 05/29/19 19:15: Urine Color Straw, Urine Clarity Clear, Urine pH 7.0, Ur Specific [place] 1.010, Urine Protein Negative, Urine Glucose (UA) Normal, Urine Ketones Negative, Urine Occult Blood Negative, Urine Nitrite Negative, Urine Bilirubin Negative, Urine Urobilinogen Normal, Ur Leukocyte Esterase Negative, Urine RBC 0-5 SEEN, Urine WBC 0 SEEN, Ur Squamous Epith Cells 0 SEEN, Urine Bacteria 0 SEEN, Urine Mucus 0 SEEN 05/30/19 06:12: Sodium 140, Potassium 4.2, Chloride 105, Carbon Dioxide 27.0, Anion Gap 8, BUN 17, Creatinine 1.34 H, Estim Creat Clear Calc 59.77, Est GFR (MDRD) Af Amer 70, Est GFR (MDRD) Non-Af 57 L, BUN/Creatinine Ratio 12.7, Glucose 78, Calcium 8.1 L, Total Creatine Kinase 3753 H 05/30/19 06:12: Phosphorus 3.0, Magnesium 1.7 Current Medications Acetaminophen (Tylenol) 650 mg PO Q6H PRN PRN PRN Reason: Mild Pain (1-3)/Temp > 100.7 F Enoxaparin Sodium (Lovenox) 40 mg SC DAILY@1000 ELYSIA Last Admin: 05/30/19 09:39 Dose: 40 mg Documented by: Sodium Chloride () 1,000 mls @ 150 mls/hr IV .Q6H40M PENDING SALE TO [facility] Stop: 05/30/19 14:45 Last Admin: 05/30/19 11:22 Dose: 150 mls/hr Documented by: Sodium Chloride () 10 - 40 ml IV UD PRN PRN Reason: SALINE FLUSH Tamsulosin HCl (Flomax) 0.4 mg PO DAILY PENDING SALE TO [facility] Last Admin: 05/30/19 09:39 Dose: 0.4 mg Documented by: Medical Necessity - Tobacco Use Smoking Status: Former smoker Assessment/Plan All Active Problems (Last Updated 05/29/19 @ 21:51 by Rustam Vaughn MD) Rhabdomyolysis (Acute) The patient is a 63 year old M with a significant history of lipidemia on Crestor was admitted with rhabdomyolysis. Patient had lipid profile done as an outpatient and states his total cholesterol was about 337 in January 2019 and was started on Crestor, dose unclear but last lipid profile as per the patient brought the cholesterol down to 117 in April 2019 as per the patient. 1. Rhabdomyolysis Patient received normal saline IV fluid and bicarbonate emergency department. Last BMP shows bicarb 27, K4.2, sodium and chloride normal. Christer is on hold. CPK 3753. Monitor CPK daily. 2. Elevated liver enzymes secondary to Crestor/drug induced liver injury: ALT 242, AST 154. Total bili and alkaline phosphatase are normal. Transaminases have been slowly increasing up. ALT 125 February 2019 to 526 in April 2019. AST 78 in January 2019 to 374 in April 2019. Liver enzymes are normal prior to January 2019 therefore slowly increasing secondary to Crestor. 3. Mild hyponatremia and mild hypokalemia: Sodium and potassium replaced. Monitor electrolytes and replace accordingly. 4. BPH Flomax continued DVT prophylaxis Subcutaneous Lovenox ordered. Code Visit Inpatient E&M: 92565 Subs Hosp L3
[2019-05-31] VITALS (8 sets, daily range): BP systolic 97–151; BP diastolic 62–84; PULSE 40–60; RESP 16–18; TEMP 36.5–36.6; O2SAT 96–98
[2019-05-31 08:13] LABS: Anion Gap 6 (5-15); BUN 14 mg/dL (7-18); BUN/Creat Ratio 9.7 RATIO (10-20); CPK Total, Creatine Kinase 3099 U/L (39-308); Calcium,Total 8.2 mg/dL (8.5-10.1); Chloride 104 mmol/L (98-107); Creatinine, Serum 1.44 mg/dL (0.70-1.30); EST Glomerular Filtration Rate 53 mL/min (>60); Est Glom Filt Rate - Afr Amer 64 mL/min (>60); Estimated Creatinine Clearance 55.62 ml/min; Glucose 72 mg/dL (74-106); Magnesium 1.9 mg/dL (1.6-2.6); Phosphorus 3.2 mg/dL (2.5-4.9); Potassium 4.1 mmol/L (3.5-5.1); Sodium Level 139 mmol/L (136-145)
[2019-05-31] MEDS: Tamsulosin HCl 0.4 MG Capsule PO (09:35)
[2019-05-31] MEDS: Enoxaparin 40 MG/0.4 ML Syringe SC (10:44)
[2019-05-31] MEDS: 0.9% NaCl Peripheral Flush Adult/Peds IV (10:46)
[2019-05-31] MEDS: 0.9% Normal Saline 1,000 ML 100 ML IV ×2 (10:46→21:02)
[2019-05-31 11:05] LABS: AST(SGOT) 102 U/L (15-37); Alanine Aminotransfer ALT/SGPT 168 U/L (16-61); Albumin, Serum 3.6 g/dL (3.2-5.0); Alkaline Phosphatase 60 U/L (45-117); Bilirubin, Direct 0.09 mg/dL (0.00-0.30); Globulin 2.9 g/dL (2.2-4.2); Protein, Total 6.5 g/dL (6.4-8.2)
--- NOTE | 2019-05-31 14:04 | PCM.PN.HOSP ---
Patient Problems: Active and Suspected Problems (Last Updated 05/29/19 @ 21:51 by Rustam Vaughn MD) Rhabdomyolysis (Acute) Subjective: Patient has dark yellow urine in the morning. Patient's CK is still high. Creatinine 1.44 not much change from yesterday. Electrolytes are normal. Patient denies renal angle pain or suprapubic bladder pain. No fever or chills. Vitals/I&O's: Vital Signs Temp Pulse Resp BP Pulse Ox 98 F 52 L 16 151/84 H 98 05/31/19 13:55 05/31/19 13:55 05/31/19 13:55 05/31/19 13:55 05/31/19 13:55 Oxygen Delivery Method Room Air Weight: 196 lb 3.382 oz Body Mass Index (BMI) 28.0 Intake and Output for Last 24 Hours 05/29/19 05/30/19 05/31/19 23:59 23:59 23:59 Intake Total 4167 / 4167 2300 / 2300 Output Total 4385 / 4385 2350 / 2350 Balance -218 / -218 -50 / -50 General: Alert, Oriented x3, Cooperative HEENT: Atraumatic, PERRLA, EOMI, Normocephalic Neck: Supple, No JVD, Negative Carotid Bruits Lungs: Clear to auscultation, Normal air movement, No rhonchi, No wheeze, No rales Cardiovascular: Regular rate, Regular Rhythm, Normal S1, Normal S2, No murmurs Abdomen: Bowel Sounds Present, Soft, Non Tender, Non-Distended Extremities: No edema, Capillary Refill Less than 3 Seconds Skin: No rashes, No breakdown Musculoskeletal: No Tenderness to Palpation of Joints or Extremities, - - Mild muscle weakness. No tenderness. Neurological: Cranial nerves II-XII grossly intact, Deep Tendon Reflexes 2+/4 and Symmetrical, Neuro grossly intact, Motor Exam 5/5 strength throughout - Patient feels subjective weakness but on exam 5/5. Psych/Mental Status: Normal Affect, Appropriate Laboratory Results 05/31/19 06:10: Sodium 139, Potassium 4.1, Chloride 104, Carbon Dioxide 29.0, Anion Gap 6, BUN 14, Creatinine 1.44 H, Estim Creat Clear Calc 55.62, Est GFR (MDRD) Af Amer 64, Est GFR (MDRD) Non-Af 53 L, BUN/Creatinine Ratio 9.7 L, Glucose 72 L, Calcium 8.2 L, Phosphorus 3.2, Magnesium 1.9, Total Creatine Kinase 3099 H 05/31/19 06:10: Total Creatine Kinase Cancelled 05/31/19 06:10: Total Bilirubin 0.50, Direct Bilirubin 0.09, AST 102 H, ALT 168 H, Alkaline Phosphatase 60, Total Protein 6.5, Albumin 3.6, Globulin 2.9 Current Medications Acetaminophen (Tylenol) 650 mg PO Q6H PRN PRN PRN Reason: Mild Pain (1-3)/Temp > 100.7 F Enoxaparin Sodium (Lovenox) 40 mg SC DAILY@1000 ELYSIA Last Admin: 05/31/19 10:44 Dose: 40 mg Documented by: Sodium Chloride () 1,000 mls @ 100 mls/hr IV .Q10H ELYSIA Stop: 06/01/19 06:09 Last Admin: 05/31/19 10:46 Dose: 100 mls/hr Documented by: Sodium Chloride () 10 - 40 ml IV UD PRN PRN Reason: SALINE FLUSH Last Admin: 05/31/19 10:46 Dose: 10 ml Documented by: Tamsulosin HCl (Flomax) 0.4 mg PO DAILY ELYSIA Last Admin: 05/31/19 09:35 Dose: 0.4 mg Documented by: Medical Necessity - Tobacco Use Smoking Status: Former smoker Assessment/Plan All Active Problems (Last Updated 05/29/19 @ 21:51 by Rustam Vaughn MD) Rhabdomyolysis (Acute) The patient is a 63 year old M with a significant history of lipidemia on Crestor was admitted with rhabdomyolysis. Patient had lipid profile done as an outpatient and states his total cholesterol was about 337 in January 2019 and was started on Crestor, dose unclear but last lipid profile as per the patient brought the cholesterol down to 117 in April 2019 as per the patient. 1. Rhabdomyolysis Patient received normal saline IV fluid and bicarbonate emergency department. Last BMP shows bicarb 27, K4.2, sodium and chloride normal. Cholesterol on hold. CPK 3753. 05/31/2019: CK still high at 3099. IV fluid normal saline at 100 mL hour for 24 hours to continue. Monitor intake and output. Monitor CPK daily. 2. Acute kidney injury on CKD stage III since January 2019: Patient last normal creatinine was in July 2017 1.1. In January 2019 1.8 and then 1.5-1.6 until April 2019. Patient this time came with creatinine 1.6. Gradually improving. There has not been much change in BUN since January 2019. Stays 15 to 17 mg/dL. Monitor electrolytes and kidney function daily. BUN normal. 3. Elevated liver enzymes secondary to Crestor/drug induced liver injury: ALT 242, AST 154. Total bili and alkaline phosphatase are normal. Transaminases have been slowly increasing up. ALT 125 February 2019 to 526 in April 2019. AST 78 in January 2019 to 374 in April 2019. Liver enzymes are normal prior to January 2019 therefore slowly increasing secondary to Crestor. Transaminases are getting better. 3. Mild hyponatremia and mild hypokalemia: Sodium and potassium replaced. Monitor electrolytes and replace accordingly. 05/31/2019: Normal. 4. BPH Flomax continued DVT prophylaxis Subcutaneous Lovenox ordered. Laboratory Results 05/31/19 06:10: Sodium 139, Potassium 4.1, Chloride 104, Carbon Dioxide 29.0, Anion Gap 6, BUN 14, Creatinine 1.44 H, Estim Creat Clear Calc 55.62, Est GFR (MDRD) Af Amer 64, Est GFR (MDRD) Non-Af 53 L, BUN/Creatinine Ratio 9.7 L, Glucose 72 L, Calcium 8.2 L, Phosphorus 3.2, Magnesium 1.9, Total Creatine Kinase 3099 H 05/31/19 06:10: Total Creatine Kinase Cancelled 05/31/19 06:10: Total Bilirubin 0.50, Direct Bilirubin 0.09, AST 102 H, ALT 168 H, Alkaline Phosphatase 60, Total Protein 6.5, Albumin 3.6, Globulin 2.9 Code Visit Inpatient E&M: 77980 Subs Hosp L3
[2019-06-01 03:57] VITALS: BP 108/70; PULSE 54; RESP 16; TEMP 36.4; O2SAT 97
[2019-06-01] MEDS: 0.9% NaCl Peripheral Flush Adult/Peds IV (06:56)
[2019-06-01 07:03] VITALS: O2SAT 94
[2019-06-01 07:56] LABS: ALB/GLOB Ratio 1.2 RATIO (0.9-2.4); AST(SGOT) 112 U/L (15-37); Alanine Aminotransfer ALT/SGPT 172 U/L (16-61); Albumin, Serum 3.8 g/dL (3.2-5.0); Alkaline Phosphatase 69 U/L (45-117); Anion Gap 7 (5-15); BUN 13 mg/dL (7-18); BUN/Creat Ratio 9.2 RATIO (10-20); CPK Total, Creatine Kinase 3112 U/L (39-308); Calcium,Total 8.5 mg/dL (8.5-10.1); Chloride 104 mmol/L (98-107); Creatinine, Serum 1.42 mg/dL (0.70-1.30); EST Glomerular Filtration Rate 54 mL/min (>60); Est Glom Filt Rate - Afr Amer 65 mL/min (>60); Estimated Creatinine Clearance 56.41 ml/min; Globulin 3.2 g/dL (2.2-4.2); Glucose 69 mg/dL (74-106); Potassium 4.1 mmol/L (3.5-5.1); Sodium Level 138 mmol/L (136-145)
[2019-06-01 08:05] VITALS: BP 117/81; PULSE 53; RESP 18; TEMP 36.5; O2SAT 98
[2019-06-01] MEDS: Tamsulosin HCl 0.4 MG Capsule PO (08:08)
[2019-06-01] MEDS: Enoxaparin 40 MG/0.4 ML Syringe SC (08:08)
[2019-06-01] MEDS: Lactated Ringers 1,000 ML 150 ML IV (09:10)
--- NOTE | 2019-06-01 09:29 | DCINST_ITS ---
- Discharge Diagnoses Current Active Problems: Current Active and Chronic Problems (Last Updated 05/29/19 @ 21:51 by Rustam Vaughn MD) Rhabdomyolysis (Acute) You will use the following diet at home:: Cardiac Your food should be the consistency of: Regular Discharge Activity: May Not Drive - for 3-4 weeks until cleared by PCP Additional Activity Instructions:: Patient advised off work for 3 weeks and avoiding any strenuous muscle exercise, climbing flights of stairs AND running due to acute rhabdomyolysis Call your doctor if you observe: Fever of 101 or Higher, Numbness or Tingling, Inability to urinate, Inability to have a bowel movement, Shortness of breath, Dizziness, Fainting spells, Swelling in the ankles, Chest pain, Increased palpitations (irregular heartbeat) Allergies/Adverse Reactions: Allergies Penicillins Adverse Reaction (Verified 08/20/17 10:39) Hives Medications to take at Discharge Tamsulosin HCl 0.4 mg PO DAILY 05/29/19 Primary Care Physician: Sourav Giraldo MD [Primary Care Provider] - Test Results: Test results from this visit will be discussed in further detail at your follow- up appointment, if applicable. Please Follow Up With: Debra Forman MD When: IN 1-2 Weeks for KIRSTIN sec to Rhabdomyolysis
--- NOTE | 2019-06-01 09:31 | DS.PCM_ITS ---
Discharge Date and Diagnosis - Problem List Patient Problems: Active and Suspected Problems (Last Updated 05/29/19 @ 21:51 by Rustam Vaughn MD) Rhabdomyolysis (Acute) Date of Admission: 05/29/19 Date of Discharge: 06/01/19 - Primary Discharge Diagnosis Active and Suspected Problems (Last Updated 05/29/19 @ 21:51 by Rustam Vaughn MD) Rhabdomyolysis (Acute) Hospital Course and Treatment Summary of Care Provided: [] The patient is a 63 year old M with a significant history of lipidemia on Crestor was admitted with rhabdomyolysis. Patient had lipid profile done as an outpatient and states his total cholesterol was about 337 in January 2019 and was started on Crestor, dose unclear but last lipid profile as per the patient brought the cholesterol down to 117 in April 2019 as per the patient. 1. Rhabdomyolysis Patient received normal saline IV fluid and bicarbonate emergency department. Last BMP shows bicarb 27, K4.2, sodium and chloride normal. Cholesterol on hold. CPK 3753. 05/31/2019: CK still high at 3099. IV fluid normal saline at 100 mL hour for 24 hours to continue. Monitor intake and output. 06/01/2019: CPK came down marginally from about 3700?3100. This is not the expected therefore [facility] was called and discussed with Dr. Forman and advised Ringer lactate for 1 L and patient can go home as he wished to go home. Follow-up BMP in 1 week along with CPK. Follow-up with [facility]. Keep holding Crestor. 2. Acute kidney injury on CKD stage III since January 2019: Patient last normal creatinine was in July 2017 1.1. In January 2019 1.8 and then 1.5-1.6 until April 2019. Patient this time came with creatinine 1.6. Gradually improving. There has not been much change in BUN since January 2019. Stays 15 to 17 mg/dL. 06/01/2019: BUN 13/creatinine 1.42. I think patient baseline creatinine is about 1.5, he had in April 2019. KIRSTIN resolved. 3. Elevated liver enzymes secondary to Crestor/drug induced liver injury: ALT 242, AST 154. Total bili and alkaline phosphatase are normal. Transaminases have been slowly increasing up. ALT 125 February 2019 to 526 in April 2019. AST 78 in January 2019 to 374 in April 2019. Liver enzymes are normal prior to January 2019 therefore slowly increasing secondary to Crestor. ALT and AST have improved. 3. Mild hyponatremia and mild hypokalemia: Sodium and potassium replaced. Hyponatremia and hypokalemia resolved. 05/31/2019: Normal. 4. BPH Flomax continued DVT prophylaxis Subcutaneous Lovenox ordered. Discharge medication reconciliation done. Discharge follow-up instructions completed. Discharge process discussed with the patient and all questions were answered to patient's satisfaction. Follow with PCP in 1 to 2 weeks. Follow-u p with [facility] in 1 week with follow-up BMP and CPK. Total time spent, exact 35 minutes on discharge meds reconciliation, examination, review of imaging and blood test and discussion with the patient on follow-up instructions. Laboratory Results 06/01/19 06:13: Sodium 138, Potassium 4.1, Chloride 104, Carbon Dioxide 27.0, Anion Gap 7, BUN 13, Creatinine 1.42 H, Estim Creat Clear Calc 56.41, Est GFR (MDRD) Af Amer 65, Est GFR (MDRD) Non-Af 54 L, BUN/Creatinine Ratio 9.2 L, Glucose 69 L, Calcium 8.5, Total Bilirubin 0.50, AST 112 H, ALT 172 H, Alkaline Phosphatase 69, Total Creatine Kinase 3112 H, Total Protein 7.0, Albumin 3.8, Globulin 3.2, Albumin/Globulin Ratio 1.2 Patient Problems: Active and Suspected Problems (Last Updated 05/29/19 @ 21:51 by Rustam Vaughn MD) Rhabdomyolysis (Acute) Subjective: Patient stated he has chronic arthritis of both hip joints, knees joint and ankle joint even before starting on Crestor. Patient wants to go home. Denies muscle pain or difficulty walking. Patient was seen walking around the nursing station under supervision of physical therapist - Physical Exam General: Alert, Oriented x3, Cooperative HEENT: Atraumatic, PERRLA, EOMI, Normocephalic Neck: Supple, No JVD, Negative Carotid Bruits Lungs: Clear to auscultation, Normal air movement, No rhonchi, No wheeze, No rales Cardiovascular: Regular rate, Regular Rhythm, Normal S1, Normal S2, No murmurs Abdomen: Bowel Sounds Present, Soft, Non Tender, Non-Distended Extremities: No edema, Capillary Refill Less than 3 Seconds Skin: No rashes, No breakdown Musculoskeletal: No Tenderness to Palpation of Joints or Extremities, Arthritic Changes Neurological: Cranial nerves II-XII grossly intact, Deep Tendon Reflexes 2+/4 and Symmetrical, Neuro grossly intact, Motor Exam 5/5 strength throughout Psych/Mental Status: Normal Affect, Appropriate Vital Signs Temp Pulse Resp BP Pulse Ox 97.7 F L 53 L 18 117/81 H 98 06/01/19 08:05 06/01/19 08:05 06/01/19 08:05 06/01/19 08:05 06/01/19 08:05 Oxygen Delivery Method Room Air Weight: 196 lb 3.382 oz Body Mass Index (BMI) 28.0 Intake and Output for Last 24 Hours 05/30/19 05/31/19 06/01/19 23:59 23:59 23:59 Intake Total 4167 / 4167 5598 / 5598 741 / 741 Output Total 4385 / 4385 5800 / 5800 600 / 600 Balance -218 / -218 -202 / -202 141 / 141 Laboratory Tests Past 24 Hrs 05/31/19 06/01/19 06:10 06:13 Sodium 138 Potassium 4.1 Chloride 104 Carbon Dioxide 27.0 Anion Gap 7 BUN 13 Creatinine 1.42 H Estim Creat Clear Calc 56.41 Est GFR (MDRD) Af Amer 65 Est GFR (MDRD) Non-Af 54 L BUN/Creatinine Ratio 9.2 L Glucose 69 L Calcium 8.5 Total Bilirubin 0.50 0.50 Direct Bilirubin 0.09 AST 102 H 112 H ALT 168 H 172 H Alkaline Phosphatase 60 69 Total Creatine Kinase 3112 H Total Protein 6.5 7.0 Albumin 3.6 3.8 Globulin 2.9 3.2 Albumin/Globulin Ratio 1.2 Discharge Activity: May Not Drive - for 3-4 weeks until cleared by PCP Additional Activity Instructions:: Patient advised off work for 3 weeks and avoiding any strenuous muscle exercise, climbing flights of stairs AND running due to acute rhabdomyolysis Call your doctor if you observe: Fever of 101 or Higher, Numbness or Tingling, Inability to urinate, Inability to have a bowel movement, Shortness of breath, Dizziness, Fainting spells, Swelling in the ankles, Chest pain, Increased palpitations (irregular heartbeat) Home Medications: Medications to take at Discharge Tamsulosin HCl 0.4 mg PO DAILY 05/29/19 Primary Care Physician: Sourav Giraldo MD [Primary Care Provider] - Please Follow Up With: Debra Forman MD When: IN 1-2 Weeks for KIRSTIN sec to Rhabdomyolysis Medical Necessity - Tobacco Use Smoking Status: Former smoker Meaningful Use Info Meaningful Use Diagnoses (Choose all that apply): None applicable Code Visit Inpatient E&M: 27367 Disch Hosp
[2019-06-01 14:10] VITALS: BP 149/81; PULSE 68; RESP 18; TEMP 36.8; O2SAT 98
--- NOTE | 2019-06-04 15:38 | CASEMGMT ---
RN CM DC Call DC Date: 06/01/19 DC Disposition: Home DX: Rhabdomylosis Strata/LACE: 09/30 Intro role of CM to patient via phone. Pt states he does not have questions re: dc instructions, f/u or prescriptions. States he is doing well. Divine OSWALDN RN ACM
== END 2019-06-01 16:34 | disposition home or self-care (01) | DRG 558 ==
LOC: ED 18:08 → MS3 21:34
PROVIDERS: Admitting Provider Hospitalist; Emergency Provider Emergency Medicine; Family Provider Family Medicine; PCP Family Medicine; Visit Provider Internal Medicine
DX: M62.82 Rhabdomyolysis (principal); E87.1 Hypo-osmolality and hyponatremia; R74.8 Abnormal levels of other serum enzymes; E87.6 Hypokalemia; N40.0 Benign prostatic hyperplasia without lower urinary tract symptoms; E78.5 Hyperlipidemia, unspecified; N18.3 Chronic kidney disease, stage 3 (moderate); K71.9 Toxic liver disease, unspecified; T46.6X5A Adverse effect of antihyperlipidemic and antiarteriosclerotic drugs, initial encounter
CPT/HCPCS: 36415; 80048; 80053; 80076; 81001; 82550; 83735; 84100; 85025; 93005; 97161; 97165; 97530; 99284; J7030; J7120; A4216

== ENCOUNTER → 2019-06-04 09:19 | Outpatient (CLI) | payer BC, SELFPAY ==
[2019-05-29 22:07] VITALS: BMI 28.0
[2019-06-04 11:49] LABS: ALB/GLOB Ratio 1.3 RATIO (0.9-2.4); AST(SGOT) 126 U/L (15-37); Alanine Aminotransfer ALT/SGPT 167 U/L (16-61); Alkaline Phosphatase 67 U/L (45-117); Anion Gap 7 (5-15); BUN 13 mg/dL (7-18); BUN/Creat Ratio 8.8 RATIO (10-20); CPK Total, Creatine Kinase 3541 U/L (39-308); Calcium,Total 8.3 mg/dL (8.5-10.1); Chloride 101 mmol/L (98-107); Creatinine, Serum 1.47 mg/dL (0.70-1.30); EST Glomerular Filtration Rate 52 mL/min (>60); Est Glom Filt Rate - Afr Amer 62 mL/min (>60); Glucose 87 mg/dL (74-106); Potassium 3.6 mmol/L (3.5-5.1); Sodium Level 140 mmol/L (136-145)
== END ==
PROVIDERS: Family Provider Family Medicine; PCP Family Medicine; Referring Provider Internal Medicine; Visit Provider Internal Medicine
DX: M62.82 Rhabdomyolysis (principal)
CPT/HCPCS: 36415; 80053; 82550

== ENCOUNTER → 2019-06-08 15:59 | Outpatient (CLI) | payer BC, SELFPAY ==
[2019-05-29 22:07] VITALS: BMI 28.0
[2019-06-08 18:40] LABS: ALB/GLOB Ratio 1.2 RATIO (0.9-2.4); AST(SGOT) 103 U/L (15-37); Alanine Aminotransfer ALT/SGPT 149 U/L (16-61); Alkaline Phosphatase 71 U/L (45-117); Anion Gap 4 (5-15); BUN 16 mg/dL (7-18); BUN/Creat Ratio 10.8 RATIO (10-20); CPK Total, Creatine Kinase 2245 U/L (39-308); Chloride 100 mmol/L (98-107); Creatinine, Serum 1.48 mg/dL (0.70-1.30); EST Glomerular Filtration Rate 51 mL/min (>60); Est Glom Filt Rate - Afr Amer 62 mL/min (>60); Globulin 3.3 g/dL (2.2-4.2); Glucose 75 mg/dL (74-106); Potassium 3.9 mmol/L (3.5-5.1); Protein, Total 7.3 g/dL (6.4-8.2); Sodium Level 137 mmol/L (136-145)
== END ==
PROVIDERS: Family Provider Family Medicine; PCP Family Medicine; Visit Provider Family Medicine
DX: M62.82 Rhabdomyolysis (principal); R94.5 Abnormal results of liver function studies
CPT/HCPCS: 36415; 80053; 82550

== ENCOUNTER → 2019-06-15 08:16 | Outpatient (CLI) | payer BC, SELFPAY ==
[2019-05-29 22:07] VITALS: BMI 28.0
[2019-06-15 10:46] LABS: ALB/GLOB Ratio 1.4 RATIO (0.9-2.4); AST(SGOT) 209 U/L (15-37); Alanine Aminotransfer ALT/SGPT 317 U/L (16-61); Albumin, Serum 4.2 g/dL (3.2-5.0); Alkaline Phosphatase 73 U/L (45-117); Anion Gap 7 (5-15); BUN 15 mg/dL (7-18); BUN/Creat Ratio 9.9 RATIO (10-20); CPK Total, Creatine Kinase 3031 U/L (39-308); Calcium,Total 8.9 mg/dL (8.5-10.1); Chloride 100 mmol/L (98-107); Creatinine, Serum 1.52 mg/dL (0.70-1.30); EST Glomerular Filtration Rate 50 mL/min (>60); Est Glom Filt Rate - Afr Amer 60 mL/min (>60); Glucose 72 mg/dL (74-106); Potassium 4.4 mmol/L (3.5-5.1); Protein, Total 7.2 g/dL (6.4-8.2); Sodium Level 138 mmol/L (136-145)
== END ==
PROVIDERS: Family Provider Family Medicine; PCP Family Medicine; Referring Provider Family Medicine; Visit Provider Family Medicine
DX: M62.82 Rhabdomyolysis (principal)
CPT/HCPCS: 36415; 80053; 82550

== ENCOUNTER → 2019-06-28 09:01 | Outpatient (CLI) | payer BC, SELFPAY ==
[2019-05-29 22:07] VITALS: BMI 28.0
[2019-06-28 10:47] LABS: ALB/GLOB Ratio 1.2 RATIO (0.9-2.4); AST(SGOT) 94 U/L (15-37); Alanine Aminotransfer ALT/SGPT 145 U/L (16-61); Albumin, Serum 3.9 g/dL (3.2-5.0); Alkaline Phosphatase 88 U/L (45-117); Anion Gap 8 (5-15); BUN 19 mg/dL (7-18); BUN/Creat Ratio 12.9 RATIO (10-20); CPK Total, Creatine Kinase 2848 U/L (39-308); Calcium,Total 8.5 mg/dL (8.5-10.1); Chloride 101 mmol/L (98-107); Creatinine, Serum 1.47 mg/dL (0.70-1.30); EST Glomerular Filtration Rate 52 mL/min (>60); Est Glom Filt Rate - Afr Amer 62 mL/min (>60); Globulin 3.2 g/dL (2.2-4.2); Glucose 109 mg/dL (74-106); Potassium 3.8 mmol/L (3.5-5.1); Protein, Total 7.1 g/dL (6.4-8.2); Sodium Level 139 mmol/L (136-145)
== END ==
PROVIDERS: Family Provider Family Medicine; PCP Family Medicine; Referring Provider Family Medicine; Visit Provider Family Medicine
DX: N18.3 Chronic kidney disease, stage 3 (moderate) (principal)
CPT/HCPCS: 36415; 80053; 82550

== ENCOUNTER → 2019-07-12 09:17 | Outpatient (CLI) | payer BC, SELFPAY ==
[2019-07-12 11:19] LABS: CPK Total, Creatine Kinase 4173 U/L (39-308)
== END ==
PROVIDERS: Family Provider Family Medicine; PCP Family Medicine; Referring Provider Family Medicine; Visit Provider Family Medicine
DX: N18.3 Chronic kidney disease, stage 3 (moderate) (principal)
CPT/HCPCS: 36415; 82550

== ENCOUNTER → 2019-07-24 11:20 | Outpatient (CLI) | payer BC, SELFPAY ==
[2019-07-24 14:15] LABS: Absolute Lymphocyte Count 2.03 X10^3/uL (0.83-4.51); Absolute Neutrophil Count 2.8 X10^3/uL (2.0-7.7); Basophil# 0.05 X10^3/uL; Basophil% 0.9 % (0-1); Eosinophil# 0.13 X10^3/uL; Eosinophils% 2.4 % (0-5); Hematocrit 34.7 % (40-54); Hemoglobin 11.2 g/dL (13.0-16.5); Lymphocyte # 2.03 X10^3/ul (4.0); Lymphocyte % 37.8 % (19-41); Mean Corp Hgb Conc 32.3 g/dL (32-36); Mean Corpuscular Volume 105.5 fL (80-94); Mean Platelet Vol. 10.8 fl (6.2-12.0); Monocyte# 0.37 X10^3/uL; Monocyte% 6.9 % (0-10); NRBC Flagged by Analyzer 0 % (0-5); Neutrophil # 2.76 X10^3/uL (2.7-7.7); Neutrophil % 51.4 % (47-70); Platelet Count 196 K/mm3 (150-450); RBC Distribution Width CV 13.3 % (11.6-14.6); RBC Distribution Width SD 51.8 fl (35.1-43.9); Red Blood Count 3.29 M/mm3 (4.6-6.2); White Blood Count 5.4 K/mm3 (4.4-11.0)
[2019-07-24 14:27] LABS: Vitamin D,25 Hydroxy 30.5 ng/mL (29.95-100.01)
[2019-07-24 14:40] LABS: ALB/GLOB Ratio 1.1 RATIO (0.9-2.4); AST(SGOT) 71 U/L (15-37); Alanine Aminotransfer ALT/SGPT 53 U/L (16-61); Alkaline Phosphatase 61 U/L (45-117); Anion Gap 5 (5-15); BUN 14 mg/dL (7-18); BUN/Creat Ratio 9.6 RATIO (10-20); CPK Total, Creatine Kinase 2784 U/L (39-308); Calcium,Total 8.5 mg/dL (8.5-10.1); Chloride 102 mmol/L (98-107); Creatinine, Serum 1.46 mg/dL (0.70-1.30); EST Glomerular Filtration Rate 52 mL/min (>60); Est Glom Filt Rate - Afr Amer 63 mL/min (>60); Globulin 3.5 g/dL (2.2-4.2); Glucose 77 mg/dL (74-106); Potassium 4.1 mmol/L (3.5-5.1); Protein, Total 7.5 g/dL (6.4-8.2); Sodium Level 138 mmol/L (136-145)
== END ==
PROVIDERS: Family Provider Family Medicine; PCP Family Medicine; Referring Provider Family Medicine; Visit Provider Family Medicine
DX: N18.3 Chronic kidney disease, stage 3 (moderate) (principal); M62.82 Rhabdomyolysis; D64.9 Anemia, unspecified; E55.9 Vitamin D deficiency, unspecified
CPT/HCPCS: 36415; 80053; 82306; 82550; 85025

== ENCOUNTER → 2019-07-26 08:16 | Outpatient (CLI) | payer BC, SELFPAY ==
[2019-07-26 10:30] LABS: Vitamin B12 642 pg/mL (211-911)
[2019-07-26 10:40] LABS: LDH 707 U/L (87-241)
[2019-07-27 13:00] LABS: Haptoglobin 84 mg/dL (34-200)
== END ==
PROVIDERS: Family Provider Family Medicine; PCP Family Medicine; Referring Provider Family Medicine; Visit Provider Family Medicine
DX: D53.9 Nutritional anemia, unspecified (principal)
CPT/HCPCS: 36415; 82607; 82746; 83010; 83615

== ENCOUNTER → 2019-09-04 08:57 | Outpatient (CLI) | payer BC, SELFPAY ==
[2019-07-31 15:07] VITALS: BMI 28.0
[2019-09-04 10:49] LABS: ALB/GLOB Ratio 1.2 RATIO (0.9-2.4); AST(SGOT) 117 U/L (15-37); Alanine Aminotransfer ALT/SGPT 74 U/L (16-61); Albumin, Serum 4.2 g/dL (3.2-5.0); Alkaline Phosphatase 69 U/L (45-117); Anion Gap 7 (5-15); BUN 20 mg/dL (7-18); BUN/Creat Ratio 14.3 RATIO (10-20); CPK Total, Creatine Kinase 4309 U/L (39-308); Calcium,Total 8.8 mg/dL (8.5-10.1); Chloride 100 mmol/L (98-107); EST Glomerular Filtration Rate 55 mL/min (>60); Est Glom Filt Rate - Afr Amer 66 mL/min (>60); Globulin 3.4 g/dL (2.2-4.2); Glucose 98 mg/dL (74-106); Protein, Total 7.6 g/dL (6.4-8.2); Sodium Level 138 mmol/L (136-145)
== END ==
PROVIDERS: Family Provider Family Medicine; PCP Family Medicine; Referring Provider Family Medicine; Visit Provider Family Medicine
DX: M62.82 Rhabdomyolysis (principal); R94.5 Abnormal results of liver function studies
CPT/HCPCS: 36415; 80053; 82550

== ENCOUNTER → 2019-09-06 13:59 | Outpatient (CLI) | payer BC, SELFPAY ==
[2019-07-31 15:07] VITALS: BMI 28.0
[2019-09-06 17:39] LABS: T4 Free Direct 0.12 ng/dL (0.76-1.46)
[2019-09-10 20:52] LABS: Anti-Thyroglobulin AB < 1.0 IU/mL (0.0-0.9); Thyroglobulin, Serum Qt. 5.4 ng/mL (1.4-29.2); Thyroid Peroxidase AB > 600 IU/mL (0-34)
== END ==
PROVIDERS: Family Provider Family Medicine; PCP Family Medicine; Referring Provider Family Medicine; Visit Provider Family Medicine
DX: R79.89 Other specified abnormal findings of blood chemistry (principal)
CPT/HCPCS: 36415; 84432; 84439; 84443; 86376; 86800

== ENCOUNTER → 2019-10-11 08:31 | Outpatient (CLI) | payer BC, SELFPAY ==
[2019-07-31 15:07] VITALS: BMI 28.0
[2019-10-11 10:16] LABS: Hematocrit 32.4 % (40-54); Hemoglobin 10.4 g/dL (13.0-16.5); Mean Corp Hgb Conc 32.1 g/dL (32-36); Mean Corpuscular Hgb 34.2 pg (27.0-32.0); Mean Corpuscular Volume 106.6 fL (80-94); Platelet Count 189 K/mm3 (150-450); RBC Distribution Width CV 13.5 % (11.6-14.6); RBC Distribution Width SD 53.5 fl (35.1-43.9); Red Blood Count 3.04 M/mm3 (4.6-6.2); White Blood Count 5.6 K/mm3 (4.4-11.0)
[2019-10-11 10:26] LABS: Color, Urine Yellow (Yellow); Glucose, Dipstick Normal (Normal); Ketone-Dipstick Negative (Negative); Leukocyte Esterase-Dipstick 500 /ul (Negative); Nitrite-Dipstick Negative (Negative); Occult Blood-Urine 25 /ul (Negative); Protein-Dipstick 15 mg/dl (Negative); Specific Gravity, Urine 1.005 (1.002-1.030); Urine Bilirubin Dipstick Negative (Negative); Urine Clarity Clear (Clear); Urine Urobilinogen Normal (Normal)
[2019-10-11 10:28] LABS: Albumin, Serum 3.9 g/dL (3.2-5.0); BUN 17 mg/dL (7-18); BUN/Creat Ratio 15.9 RATIO (10-20); Chloride 102 mmol/L (98-107); Creatinine, Serum 1.07 mg/dL (0.70-1.30); EST Glomerular Filtration Rate 74 mL/min (>60); Est Glom Filt Rate - Afr Amer 90 mL/min (>60); Glucose 97 mg/dL (74-106); Phosphorus 3.6 mg/dL (2.5-4.9); Potassium 3.7 mmol/L (3.5-5.1); Sodium Level 137 mmol/L (136-145)
[2019-10-11 10:42] LABS: PTHIN 28.6 pg/mL (18.4-80.1)
[2019-10-11 10:49] LABS: Microalbumin,Random Urine 17.1 mg/L (NO RANGE EST.); Microalbumin:Creatinine Ratio 72.8 mg/g CRE (<30 mg/g CRE); Protein, Urine (Random) < 6.0 mg/dL (<11.9)
== END ==
PROVIDERS: Family Provider Family Medicine; PCP Family Medicine; Referring Provider Family Medicine; Visit Provider Internal Medicine Nephrology
DX: N18.3 Chronic kidney disease, stage 3 (moderate) (principal)
CPT/HCPCS: 36415; 80069; 81002; 82043; 82306; 82570; 83970; 84156; 85027

== ENCOUNTER → 2019-11-01 13:37 | Outpatient (CLI) | payer BC, SELFPAY ==
[2019-07-31 15:07] VITALS: BMI 28.0
[2019-11-01 16:02] LABS: T4 Free Direct 1.02 ng/dL (0.76-1.46)
[2019-11-05 17:44] LABS: Anti-Thyroglobulin AB < 1.0 IU/mL (0.0-0.9); Thyroglobulin, Serum Qt. 2.4 ng/mL (1.4-29.2); Thyroid Peroxidase AB 553 IU/mL (0-34)
== END ==
PROVIDERS: Family Provider Family Medicine; PCP Family Medicine; Referring Provider Family Medicine; Visit Provider Family Medicine
DX: R79.89 Other specified abnormal findings of blood chemistry (principal)
CPT/HCPCS: 36415; 84432; 84439; 84443; 86376; 86800

== ENCOUNTER → 2019-11-06 09:40 | Outpatient (CLI) | payer BC, SELFPAY ==
[2019-07-31 15:07] VITALS: BMI 28.0
[2019-11-06 13:50] LABS: Absolute Lymphocyte Count 1.68 X10^3/uL (0.83-4.51); Absolute Neutrophil Count 3.9 X10^3/uL (2.0-7.7); Basophil# 0.04 X10^3/uL; Basophil% 0.6 % (0-1); Eosinophil# 0.17 X10^3/uL; Eosinophils% 2.6 % (0-5); Hematocrit 34.7 % (40-54); Lymphocyte # 1.68 X10^3/ul (4.0); Lymphocyte % 26.1 % (19-41); Mean Corp Hgb Conc 31.7 g/dL (32-36); Mean Corpuscular Hgb 33.1 pg (27.0-32.0); Mean Corpuscular Volume 104.5 fL (80-94); Mean Platelet Vol. 10.1 fl (6.2-12.0); Monocyte# 0.64 X10^3/uL; Monocyte% 9.9 % (0-10); NRBC Flagged by Analyzer 0 % (0-5); Neutrophil % 60.6 % (47-70); Platelet Count 235 K/mm3 (150-450); RBC Distribution Width CV 12.8 % (11.6-14.6); RBC Distribution Width SD 49.1 fl (35.1-43.9); Red Blood Count 3.32 M/mm3 (4.6-6.2); White Blood Count 6.4 K/mm3 (4.4-11.0)
[2019-11-06 14:12] LABS: ALB/GLOB Ratio 1.1 RATIO (0.9-2.4); AST(SGOT) 15 U/L (15-37); Alanine Aminotransfer ALT/SGPT 22 U/L (16-61); Albumin, Serum 3.8 g/dL (3.2-5.0); Alkaline Phosphatase 68 U/L (45-117); Anion Gap 6 (5-15); BUN 16 mg/dL (7-18); BUN/Creat Ratio 15.2 RATIO (10-20); CPK Total, Creatine Kinase 117 U/L (39-308); Chloride 102 mmol/L (98-107); Creatinine, Serum 1.05 mg/dL (0.70-1.30); EST Glomerular Filtration Rate 76 mL/min (>60); Est Glom Filt Rate - Afr Amer 92 mL/min (>60); Globulin 3.4 g/dL (2.2-4.2); Glucose 110 mg/dL (74-106); Potassium 3.8 mmol/L (3.5-5.1); Protein, Total 7.2 g/dL (6.4-8.2); Sodium Level 137 mmol/L (136-145)
== END ==
PROVIDERS: Family Provider Family Medicine; PCP Family Medicine; Visit Provider Family Medicine
DX: D64.9 Anemia, unspecified (principal); M62.82 Rhabdomyolysis; R94.5 Abnormal results of liver function studies
CPT/HCPCS: 36415; 80053; 82550; 85025

== ENCOUNTER → 2019-11-19 10:16 | Outpatient (CLI) | payer BC, SELFPAY ==
[2019-07-31 15:07] VITALS: BMI 28.0
[2019-11-19 11:50] LABS: Anion Gap 3 (5-15); BUN 16 mg/dL (7-18); BUN/Creat Ratio 15.7 RATIO (10-20); Calcium,Total 9.4 mg/dL (8.5-10.1); Chloride 107 mmol/L (98-107); Creatinine, Serum 1.02 mg/dL (0.70-1.30); EST Glomerular Filtration Rate 79 mL/min (>60); Est Glom Filt Rate - Afr Amer 95 mL/min (>60); Glucose 82 mg/dL (74-106); PSA,Total- Diagnostic 1.45 ng/mL (0.0-4.0); Potassium 3.7 mmol/L (3.5-5.1); Sodium Level 140 mmol/L (136-145)
== END ==
PROVIDERS: Family Provider Family Medicine; PCP Family Medicine; Referring Provider Urology; Visit Provider Urology
DX: N40.1 Benign prostatic hyperplasia with lower urinary tract symptoms (principal)
CPT/HCPCS: 36415; 80048; 84153

== ENCOUNTER → 2019-12-17 08:53 | Outpatient (CLI) | payer BC, SELFPAY ==
[2019-07-31 15:07] VITALS: BMI 28.0
[2019-12-17 09:41] LABS: Anion Gap 3 (5-15); BUN 15 mg/dL (7-18); Calcium,Total 8.6 mg/dL (8.5-10.1); Chloride 108 mmol/L (98-107); EST Glomerular Filtration Rate 80 mL/min (>60); Est Glom Filt Rate - Afr Amer 97 mL/min (>60); Glucose 87 mg/dL (74-106); Potassium 3.8 mmol/L (3.5-5.1); Sodium Level 139 mmol/L (136-145)
[2019-12-17 12:56] LABS: 24 Hour Urine Protein 963.2 mg/24HR (<150 MG/24HR); 24HR. UA Prot. Total Volume 2150 mL; Creat.Clear Total Volume 2150 mL; Urine Protein (24 Hour) 44.8 mg/dL (<11.9)
[2019-12-17 12:57] LABS: Creatinine Clearance 130 ml/min (100-200); Creatinine Urine 87.6 mg/dL (NO RANGE EST.); EST Glomerular Filtration Rate 80 mL/min (>60); Est Glom Filt Rate - Afr Amer 80 mL/min (>60)
[2019-12-17 15:32] LABS: Color, Urine Yellow (Yellow); Glucose, Dipstick Normal (Normal); Ketone-Dipstick Negative (Negative); Leukocyte Esterase-Dipstick 500 /ul (Negative); Nitrite-Dipstick Negative (Negative); Occult Blood-Urine 10 /ul (Negative); Protein-Dipstick Negative (Negative); Urine Bilirubin Dipstick Negative (Negative); Urine Clarity Cloudy (Clear); Urine Urobilinogen Normal (Normal)
[2019-12-17 16:51] LABS: Protein, Urine (Random) 7.9 mg/dL (<11.9); Protein:Creat Ratio 210 mg/g CRE (0-200)
== END ==
LOC: LAB.FUTURE 12-13 09:24 → LAB 08:54
PROVIDERS: PCP Family Medicine; Referring Provider Internal Medicine; Visit Provider Internal Medicine
DX: N18.2 Chronic kidney disease, stage 2 (mild) (principal); R33.9 Retention of urine, unspecified
CPT/HCPCS: 36415; 80048; 81002; 81050; 82570; 82575; 84156

== ENCOUNTER → 2020-01-08 09:54 | Outpatient (CLI) | payer BC, SELFPAY ==
[2019-07-31 15:07] VITALS: BMI 28.0
[2020-01-08 10:03] LABS: Mucous, Urine 0 SEEN /hpf (<or=2+); Red Blood Cells-Urine 0 SEEN /hpf (0-5)
[2020-01-08 10:56] LABS: 24HR. Urine Creatinine 1.34 g/24 HR (0.90-2.10)
[2020-01-08 11:01] LABS: 24HR. UA Prot. Total Volume 3000 mL; Urine Protein (24 Hour) 24.6 mg/dL (<11.9)
[2020-01-08 11:06] LABS: Anion Gap 6 (5-15); BUN 11 mg/dL (7-18); Calcium,Total 8.7 mg/dL (8.5-10.1); Chloride 106 mmol/L (98-107); EST Glomerular Filtration Rate 80 mL/min (>60); Est Glom Filt Rate - Afr Amer 97 mL/min (>60); Glucose 87 mg/dL (74-106); Potassium 3.6 mmol/L (3.5-5.1); Sodium Level 140 mmol/L (136-145)
[2020-01-08 11:14] LABS: Creat.Clear Total Volume 3000 mL; Creatinine Clearance 95 ml/min (100-200); Creatinine Urine 45.5 mg/dL (NO RANGE EST.); EST Glomerular Filtration Rate 80 mL/min (>60); Est Glom Filt Rate - Afr Amer 97 mL/min (>60)
[2020-01-08 11:18] LABS: Color, Urine Yellow (Yellow); Glucose, Dipstick Normal (Normal); Ketone-Dipstick Negative (Negative); Leukocyte Esterase-Dipstick 500 /ul (Negative); Nitrite-Dipstick Negative (Negative); Occult Blood-Urine 25 /ul (Negative); Protein-Dipstick 15 mg/dl (Negative); Specific Gravity, Urine 1.015 (1.002-1.030); Urine Bilirubin Dipstick Negative (Negative); Urine Clarity Sl. Cloudy (Clear); Urine Urobilinogen Normal (Normal)
[2020-01-08 11:24] LABS: Protein, Urine (Random) 35.2 mg/dL (<11.9); Protein:Creat Ratio 368 mg/g CRE (0-200)
[2020-01-08 11:52] LABS: White Blood Cells >100 SEEN /hpf (0-5)
[2020-01-08 11:53] LABS: Bacteria 1+ /hpf (None Seen); Squamous Epithelial Cells - UA 0-5 SEEN /hpf (0-5)
[2020-01-10 14:08] LABS: PROEL- A/G Ratio 1.2 (0.7-1.7); PROEL- Albumin 3.5 g/dL (2.9-4.4); PROEL- Alpha-1 Globulin 0.3 g/dL (0.0-0.4); PROEL- Alpha-2 Globulin 0.8 g/dL (0.4-1.0); PROEL- Beta Globulin 0.9 g/dL (0.7-1.3); PROEL- Globulin, Total 2.9 g/dL (2.2-3.9); PROEL- TOTAL PROTEIN 6.4 g/dL (6.0-8.5); PROELU- Albumin, Urine 36.8 % (.); PROELU- Alpha-1-Globulin,Ur 2.9 % (.); PROELU- Alpha-2-Globulin,Ur 12.5 % (.); PROELU- Beta Globulin, Ur 22.7 % (.); PROELU- Gamma Globulin, Ur 25.2 % (.); Total Protein, Ur 27.5 mg/dL (Not Estab.)
== END ==
LOC: LAB.FUTURE 09:55 → LAB 09:59
PROVIDERS: PCP Family Medicine; Referring Provider Internal Medicine; Visit Provider Internal Medicine
DX: N18.2 Chronic kidney disease, stage 2 (mild) (principal)
CPT/HCPCS: 36415; 80048; 81001; 81050; 82570; 82575; 84156; 84165; 84166

== ENCOUNTER → 2020-01-30 08:28 | Outpatient (CLI) | payer BC, SELFPAY ==
[2019-07-31 15:07] VITALS: BMI 28.0
[2020-01-30 17:42] LABS: Absolute Lymphocyte Count 1.98 X10^3/uL (0.83-4.51); Absolute Neutrophil Count 3.2 X10^3/uL (2.0-7.7); Basophil# 0.03 X10^3/uL; Basophil% 0.5 % (0-1); Eosinophil# 0.19 X10^3/uL; Eosinophils% 3.2 % (0-5); Hematocrit 38.3 % (40-54); Lymphocyte # 1.98 X10^3/ul (4.0); Lymphocyte % 32.9 % (19-41); Mean Corp Hgb Conc 31.3 g/dL (32-36); Mean Corpuscular Volume 95.8 fL (80-94); Mean Platelet Vol. 10.5 fl (6.2-12.0); NRBC Flagged by Analyzer 0 % (0-5); Neutrophil # 3.21 X10^3/uL (2.7-7.7); Neutrophil % 53.2 % (47-70); Platelet Count 225 K/mm3 (150-450); RBC Distribution Width SD 49.6 fl (35.1-43.9)
[2020-01-30 17:47] LABS: AST(SGOT) 14 U/L (15-37); Alanine Aminotransfer ALT/SGPT 14 U/L (16-61); Albumin, Serum 3.5 g/dL (3.2-5.0); Alkaline Phosphatase 61 U/L (45-117); Anion Gap 5 (5-15); BUN 16 mg/dL (7-18); BUN/Creat Ratio 16.1 RATIO (10-20); CPK Total, Creatine Kinase 84 U/L (39-308); Chloride 105 mmol/L (98-107); Cholesterol 160 mg/dL (200); Creatinine, Serum 0.99 mg/dL (0.70-1.30); EST Glomerular Filtration Rate 81 mL/min (>60); Est Glom Filt Rate - Afr Amer 98 mL/min (>60); Globulin 3.6 g/dL (2.2-4.2); Glucose 115 mg/dL (74-106); High Density Lipoprotein 47 mg/dL; Potassium 3.5 mmol/L (3.5-5.1); Protein, Total 7.1 g/dL (6.4-8.2); Sodium Level 141 mmol/L (136-145); T4 Free Direct 0.99 ng/dL (0.76-1.46); Thyroid Stim Hormone (TSH) 6.24 uIU/mL (0.358-3.74); Triglycerides 76 mg/dL; Very Low Density Lipoprotein 15 mg/dL (5-40)
[2020-01-30 17:57] LABS: Vitamin B12 419 pg/mL (211-911); Vitamin D,25 Hydroxy 40.2 ng/mL
== END ==
PROVIDERS: PCP Family Medicine; Referring Provider Family Medicine; Visit Provider Family Medicine
DX: E55.9 Vitamin D deficiency, unspecified (principal); E03.8 Other specified hypothyroidism; D53.9 Nutritional anemia, unspecified; E78.5 Hyperlipidemia, unspecified
CPT/HCPCS: 36415; 80053; 80061; 82306; 82550; 82607; 82746; 84439; 84443; 85025

== ENCOUNTER → 2020-02-06 08:15 | Outpatient (CLI) | payer BC, SELFPAY ==
[2019-07-31 15:07] VITALS: BMI 28.0
[2020-02-06 09:50] LABS: Anion Gap 4 (5-15); BUN 15 mg/dL (7-18); BUN/Creat Ratio 16.2 RATIO (10-20); Calcium,Total 9.1 mg/dL (8.5-10.1); Chloride 103 mmol/L (98-107); Creatinine, Serum 0.92 mg/dL (0.70-1.30); EST Glomerular Filtration Rate 88 mL/min (>60); Est Glom Filt Rate - Afr Amer 106 mL/min (>60); Glucose 90 mg/dL (74-106); Potassium 3.6 mmol/L (3.5-5.1); Sodium Level 138 mmol/L (136-145)
== END ==
PROVIDERS: PCP Family Medicine; Referring Provider Internal Medicine; Visit Provider Internal Medicine
DX: N18.2 Chronic kidney disease, stage 2 (mild) (principal)
CPT/HCPCS: 36415; 80048

== ENCOUNTER → 2020-02-07 09:34 | Outpatient (CLI) | payer BC, SELFPAY ==
[2019-07-31 15:07] VITALS: BMI 28.0
--- NOTE | 2020-02-07 09:40 | BI_ITS ---
MAMMOGRAPHY - BILATERAL DIAGNOSTIC REASON FOR EXAM: Male, 64 years old. Bilateral retroareolar masses and tenderness. PERTINENT HISTORY: Non-contributory. TECHNIQUE: Digital bilateral breast renetta (3D mammographic acquisition) in the CC and MLO projections. 2-D mediolateral oblique (MLO) and craniocaudad (CC) views of both breasts were obtained. CAD: Full Field Digital Mammography with Computer Added Detection was performed. COMPARISON: None. Baseline examination. FINDINGS: Breast Composition: There are scattered areas of fibroglandular density. The fibroglandular tissue is seen in the retroareolar regions of both breasts more prominent on the left side. Correlation with ultrasound of both breasts is recommended. Findings are suggestive of gynecomastia. No other significant abnormalities are identified. BI/DIAG MAMM W/CAD, BILAT IMPRESSION: Subareolar fibroglandular tissue more prominent on the left side. Correlation with ultrasound is recommended. ASSESSMENT CATEGORY: BIRADS Category 0: Incomplete. Need additional imaging evaluation. A letter regarding these results will be sent to the patient by the facility within 30 days. Approximately 10% of breast cancers are not detected by mammography. A normal mammogram should not delay biopsy of a clinically suspicious abnormality. Electronically Signed: Steve Rowell, at 11:20 EDT , Service support ,
--- NOTE | 2020-02-07 10:35 | US_ITS ---
STUDY: ULTRASOUND BREAST - BILATERAL REASON FOR EXAM: Male, 64 years old. Bilateral breast masses. TECHNIQUE: Axial and longitudinal images of the BILATERAL breast were performed with a high resolution ultrasound transducer. # OF IMAGES: 34 COMPARISON: Comparison is made with prior mammogram done earlier today. FINDINGS: BILATERAL Breast: There is a 2.5 cm x 2.1 cm x 1.6 cm irregular hypoechoic retroareolar density. This corresponds to the mammographic abnormality. This may represent gynecomastia although a tissue diagnosis is recommended. There is a 2.8 cm x 2.1 cm x 1.7 cm hypoechoic irregular density in the retroareolar region of the breasts. Tissue diagnosis is recommended. US/Breast Complete Bilateral IMPRESSION: Bilateral retroareolar masses as described. A biopsy recommended. ASSESSMENT CATEGORY: BIRADS Category 4: Suspicious - Biopsy Should Be Considered. A letter regarding these results will be sent to the patient by the facility within 30 days. Electronically Signed: Steve Rowell, at 8:23 EDT , Service support ,
== END ==
PROVIDERS: PCP Family Medicine; Referring Provider Family Medicine; Visit Provider Family Medicine
DX: N63.41 Unspecified lump in right breast, subareolar (principal); N63.42 Unspecified lump in left breast, subareolar
CPT/HCPCS: 76641; 77062; 77066; G0279

== ENCOUNTER → 2020-02-13 | Outpatient (CLI) | payer BC, SELFPAY ==
--- NOTE | 2020-02-13 | BRBX_PTH ---
PATIENT: SUNDAY DONATO LOC: [facility] U#:[id number] AGE/SX: 64/M ROOM: RE02/13/[address]: Dr. Jeremiah Hilton MD : 1955 BED: DIS: 02/13/2020 SPEC #: [id number] RECD: 02/13/20 16:40 STATUS: MONIKA JENNIFER #: [id number] NICK: 02/13/20 00:[address]: Jeremiah Hilton DEPT: SURGICAL PATHOLOGY RECD BY: Yves Viramontes ENTERED: 02/14/20 07:51 SP TYPE: BREAST BX OTHR DR: Dr. Sourav Giraldo MD Tissues: A - Right breast, NOS B - Left breast, NOS Procedures: Surgery Specimen Level IV HEADER OPERATION: Bilateral breast biopsies PRE-OP DIAGNOSIS: Bilateral breast masses TISSUE SUBMITTED: A - Right breast tissue, B - Left breast tissue MICROSCOPIC DIAGNOSIS A. Right breast tissue, core biopsy: Consistent with gynecomastia. B. Left breast tissue, core biopsy: Consistent with gynecomastia. DAYANA:priscilla 02/15/20 MICROSCOPIC DESCRIPTION Slides are reviewed. GROSS DESCRIPTION A - Received in fixative is one container labeled with the patient's name and designated right breast. The specimen consists of one elongated fragment of desir-yellow fibroadipose tissue measuring 1 cm in length and 0.1 cm in diameter. The entire specimen is submitted in one cassette. B - Received in fixative is one container labeled with the patient's name and designated left breast. The specimen consists of one elongated fragment of desir-yellow fibroadipose tissue measuring 1 cm in length and 0.1 cm in diameter. The entire specimen is submitted in one cassette. / DAYANA:priscilla 02/14/20 TC:5 CPT: 59519 x2
[2020-02-13 15:03] VITALS: BMI 28.0
== END | disposition home or self-care (01) ==
LOC: LABSPEC 16:48
PROVIDERS: PCP Family Medicine; Referring Provider Surgery; Visit Provider Surgery
DX: N63.20 Unspecified lump in the left breast, unspecified quadrant (principal); N63.10 Unspecified lump in the right breast, unspecified quadrant
CPT/HCPCS: 88305

== ENCOUNTER → 2020-04-01 08:20 | Outpatient (CLI) | payer BC, SELFPAY ==
[2020-02-13 15:03] VITALS: BMI 28.0
[2020-04-01 09:23] LABS: Anion Gap 3 (5-15); BUN 10 mg/dL (7-18); BUN/Creat Ratio 10.8 RATIO (10-20); Chloride 107 mmol/L (98-107); Creatinine, Serum 0.93 mg/dL (0.70-1.30); EST Glomerular Filtration Rate 87 mL/min (>60); Est Glom Filt Rate - Afr Amer 106 mL/min (>60); Glucose 90 mg/dL (74-106); Sodium Level 140 mmol/L (136-145)
[2020-04-01 09:52] LABS: Color, Urine Yellow (Yellow); Glucose, Dipstick Normal (Normal); Ketone-Dipstick Negative (Negative); Leukocyte Esterase-Dipstick 500 /ul (Negative); Nitrite-Dipstick Negative (Negative); Occult Blood-Urine 10 /ul (Negative); Protein-Dipstick Negative (Negative); Specific Gravity, Urine 1.005 (1.002-1.030); Urine Bilirubin Dipstick Negative (Negative); Urine Clarity Sl. Cloudy (Clear); Urine Urobilinogen Normal (Normal)
[2020-04-01 10:12] LABS: Protein, Urine (Random) 8.9 mg/dL (<11.9); Protein:Creat Ratio 328 mg/g CRE (0-200)
== END ==
PROVIDERS: PCP Family Medicine; Referring Provider Internal Medicine; Visit Provider Internal Medicine
DX: N18.2 Chronic kidney disease, stage 2 (mild) (principal); R80.9 Proteinuria, unspecified
CPT/HCPCS: 36415; 80048; 81002; 82570; 84156

== ENCOUNTER → 2020-04-15 17:06 | Outpatient (CLI) | payer BC, SELFPAY ==
[2020-02-13 15:03] VITALS: BMI 28.0
--- OUTSIDE RECORDS SUMMARY | 2020-09-09 13:56 | XMS RPT_ITS | CCD ---
:1955 External Reference #:[id number] Author Organization [facility] Care Team Providers Name Role Phone Dona KNOX Unavailable Unavailable Dona KNOX Unavailable Unavailable Roger Cameron Primary Care Provider Allergies Reported Allergen Reaction(s) Severity Date of Onset Location penicillin Hives 08-24-2017 - [facility] Translations: [ Other [place] PENICILLIN] Repository rosuvastatin Other: See Comments 08-13-2019 - [facility] ([id number]) Medications Medication Name Sig Date Prescriber Location Cholecalciferol cholecalciferol (VITAMIN [facility] Provider [facility] D-3) 2,000 unit tablet Provider ([id number] [id number]) Take 2,000 Units by mouth once daily. 0 Active Comment: Take 2,000 Units by mouth on ce daily. 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 30 capsule 5 08/02/2018 Active Comment: TAKE 1 CAPSULE BY MOUTH KAYCE Y AT BEDTIME. Problems Active Problems Category Problem Name Status Date Location Chronic kidney Chronic kidney disease stage Active 02-01-2018 - [facility] disease 3 (11652) Disorders of lipid Pure hypercholesterolemia Active - [facility] metabolism (60726) Past or Other Problems Category Problem Name Status Date Location Abdominal hernia Unilateral inguinal Completed 01-04-2018 - [facility] hernia, without (52510) obstruction or gangrene, not specified as recurrent Chronic obstructive Bronchitis [facility] [place] pulmonary disease and (01446 ) bronchiectasis Deficiency and other Anemia Completed 08-24-2017 - [facility] anemia (37000) Genitourinary symptoms Retention of urine Completed 02-06-2018 - [facility] and ill-defined (12839) conditions Results Result Name Value Range Unit Interpretation Flag Date Location progress on 2020-05 PROGRESS HNO ID: [id number] Normal 06-26-2020 [facility] Author: Jerry Gutierrez Londono ([id number]) Service: ? Author Type: Physician Type: Progress Notes Filed: 06/26/2020 8:56 AM Note Text: Diagnosis: 1) Macrocytic anemia secondary to hypothyroidism. HPI: The patient is a 65-year-old male who has a past medica l history significant for rhabdomyolysis secondary to HMG co-a reducta se inhibitor therapy (Crestor), stage 3 CKD, BPH (on Flomax). On CBC was noted to have macrocytic anemia. The total white count was 5400. Differential was normal. Hgb was 11.2 g/dL with hemato crit of 34.7% and an MCV of 105.5. MCH was 34 pg. Platelet count 196,000. Ferritin was 773 when measured on 05/23/2019. Serum iron was 112 mcg/dL on 05/23/2019. Chemistries significant for serum creatinine of 1 .46 mg/dL. Estimated GFR was 52 cc/m. Total protein was 7.5 g/dL with a n albumin of 4.0 g/dL. Globulin level was 3.5 g/dL. AST was 71 with an AL T of 61. Bilirubin and alkaline phosphatase normal. Calcium normal at 8.5 mg/dL. CPK when measured on 07/12 was 4173. Repeat on 07/24 was 2784. When patient initially seen here in July 2019, hemoglob in was 10.5 g/dL with an MCV of 106.1. RBC count slightly low 3.11 luke on cells per microliter. The remainder of the red cell indexes were jaylyn l. Total white count and differential were normal. Platelet count normal at her and 63,000. Significant lab work findings were creatinine 1.35 m g/dL. Sodium slightly lower 135 mmol per liter. Started on levothyroxine 100 mcg daily. Was seen by a urologist in October for LUTS. Underwent cyst oscopy and was found to have overdistended bladder (stretched out). Patient self catheterizes twice a day. Presents for ongoing hematologic management. Interim history: Legs are stiff and sore when first gets up and moving, but t hen pain subsides once he starts walking. Mild tingling left ball of the foot due to 'dropped' metatarsal. Chronic problem. No other symptoms of sensory neuropathy. Still self catheterizing. PMH, medications and allergies personally reviewed by me aaron gooden. Any changes documented in appropriate section. ROS: Constitutional: Denies episodes of fever and night sweats. Neuro: Denies NOONAN, vertigo, dizziness and imbalance. HEENT: No recent change in voice, vision or hearing. Resp: Denies cough, wheeze and hemoptysis. CVS: Denies exertional chest pain, PND, orthopnea. GI: Denies dysgeusia. Denies symptoms of stomatitis. Denies dysphagia and odynophagia. Denies reflux, n/v, change in bowel habits and abdominal pain. : See above. Endo: Denies hot flashes. Denies polyuria and polydipsia. De nies heat and cold intolerance. Musculoskeletal: Denies bone, back and pain. Derm: Denies rash. Denies jaundice and diffuse pruritis. Heme: Denies unusual bleeding and unexplained bruising. Psych: Normal mood. PHYSICAL EXAM: Vitals: Blood pressure 121/58, pulse 76, temperature 36.9 ?C (98.4 ?F), temperature source Temporal, weight 90.3 kg (199 lb). Well-appearing and in no acute distress. EYES: Sclerae are anicteric bilaterally. ENT: Oral mucosa is unremarkable. There is no sign of thrush or mucositis. NECK: Supple. No enlargement of thyroid. LYMPHATIC: There is no palpable cervical or supraclavicular adenopathy. RESPIRATORY: Inspiratory breath sounds are of very diminishe d intensity in all rodrigues. No rales, wheezes or rhonchi. Expiratory phase i s normal. CARDIOVASCULAR: Rhythm is regular. ABDOMEN: The abdomen is nondistended. No organomegaly. No te nderness. Extremities: No swelling or edema. SKIN: No jaundice or rash. No petechiae. NEUROLOGIC: certified medical technician II-XII are grossly intact. No focal motor we akness. LABS: Component Latest Ref Rng AND Units 06/19/2020 WBC 3.70 - 11.00 k/uL 7.62 RBC 4.20 - 6.00 m/uL 3.94 (L) Hemoglobin 13.0 - 17.0 g/dL 12.3 (L) Hematocrit 39.0 - 51.0 % 37.4 (L) MCV 80.0 - 100.0 fL 94.9 MCH 26.0 - 34.0 pG 31.2 MCHC 30.5 - 36.0 g/dL 32.9 RDW-CV 11.5 - 15.0 % 13.4 Platelet Count 150 - 400 k/uL 221 MPV 9.0 - 12.7 fL 9.4 Neut% % 62.8 Abs Neut (ANC) 1.45 - 7.50 k/uL 4.77 Lymph% % 23.2 Abs Lymph 1.00 - 4.00 k/uL 1.77 Walker% % 11.3 Abs Walker <0.87 k/uL 0.86 Eosin% % 2.2 Abs Eosin <0.46 k/uL 0.17 Baso% % 0.5 Abs Baso <0.11 k/uL 0.04 Nucleated Reds 0 /100 WBC 0.0 Absolute nRBC <0.01 k/uL <0.01 Diff Type Auto Diff Protein, Total 6.3 - 8.0 g/dL 6.7 Albumin 3.9 - 4.9 g/dL 4.0 Calcium 8.5 - 10.2 mg/dL 9.2 Bilirubin, Total 0.2 - 1.3 mg/dL 0.5 Alkaline Phosphatase 38 - 113 U/L 75 AST 14 - 40 U/L 15 Glucose 74 - 99 mg/dL 132 (H) BUN 9 - 24 mg/dL 12 Creatinine 0.73 - 1.22 mg/dL 0.78 Sodium 136 - 144 mmol/L 137 Potassium 3.7 - 5.1 mmol/L 3.8 Chloride 97 - 105 mmol/L 102 CO2 22 - 30 mmol/L 25 Anion Gap 9 - 18 mmol/L 10 ALT 10 - 54 U/L 10 eGFR- >60 eGFR-All Other Races . >60 TSH 0.270 - 4.200 uU/mL 1.830 B2 Microglobulin <3.1 mg/L 2.3 Component Latest Ref Rng AND Units 01/30/2018 08/13/2019 020 06/19/2020 Protein, Total 6.3 - 8.0 g/dL 6.8 6.9 6.8 6.3 Albumin 3.37 - 4.23 gm/dL 4.04 3.92 4.11 3.58 Alpha 1 Globulin 0.18 - 0.31 gm/dL 0.16 (L) 0.27 0.18 0.22 Alpha 2 Globulin 0.52 - 0.97 gm/dL 0.58 0.58 0.71 0.75 Beta Globulin 0.84 - 1.36 gm/dL 0.99 1.07 0.74 (L) 0.73 (L) Gamma Globulin 0.70 - 1.44 gm/dL 1.03 1.06 1.07 1.02 Interpretation (Prot Electro) SEE COMMENT SEE COMMENT SEE CO MMENT SEE COMMENT M-Protein Location N/A N/A N/A N/A M-Protein Concentration 0.00 gm/dL 0.00 0.00 0.00 0.00 SPE Staff Review Reviewed by Maco Chin M.D. ([id number]) Revie wed by Finesse Matias MD. ([id number]) Reviewed by Luis Armando Gordon M.D., PhD ([id number]) Reviewed by Luis Armando Gordon M.D., PhD ([id number]) Component Latest Ref Rng AND Units 08/13/2019 12/20/20192019 MPA IgG, Serum 717 - 1,411 mg/dL 992 1,130 1,190 MPA IgA, Serum 78 - 391 mg/dL 307 244 305 MPA IgM, Serum 53 - 334 mg/dL 82 59 66 Theba Free, Serum 3.30 - 19.40 mg/L 28.2 (H) 35.6 (H) 28.8 ( H) Lambda Free, Serum 5.7 - 26.3 mg/L 18.6 25.4 18.4 K/L Ratio, Serum 0.26 - 1.65 1.52 1.40 1.57 MPA Result No M protein is identified. A poorly defined zachary on of restricted mobility is present that may represent an M (A) . . . A poorly defined region of restricted mobility is present that may re present an M (A) . . . A poorly defined region of restricted mobility is present that may represent an M (A) . . . Interpretation ([facility]) SEE COMMENT SEE COMMENT SEE COMMENT Staff Review ([facility]) Reviewed by Finesse Matias MD. ([id number]) Reviewed by Luis Armando Gordon M.D., PhD ([id number]) Reviewed by Luis Armando wills M.D., PhD ([id number]) Urine negative for MP by electrophoresis and immunofixation. ASSESSMENT/PLAN: (D53.9) Macrocytic anemia (primary encounter diagnosis) Assessment: -In summary the patient is a 65-year-old male who was initia lly referred for macrocytic anemia. Found to have significant hypothyroid ism at the time of original workup (TSH 122.0 uU/mL). Serum kappa light chain mildly elevated but serum lambda light chain normal with normal rat io. Serum protein electrophoresis negative for M spike. Immunofixation suggested a poorly defined region of restricted mobility in the lambda l ane the pattern was noted to be less well-defined or fainter than ty pically seen a monoclonal gammopathy. Thought to possibly represent either an atypical presentation of polyclonal immunoglobulins were the presence of a low level lambda containing monoclonal gammopathy. Urine has bee n negative for monoclonal protein by both electrophoresis and immunofixatio n. TSH significantly improved and MCV decreased and hemoglobin impr parth, but has not normalized. -Improving n/n anemia. GFR now normal and chemistries (CMP) so far do not suggest hemolysis, but had marked elevation LDH last fall (r esolving rhabdo though). -Reviewed labs--Since Hgb trending up, will check again in 6 months including other labs for anemia. Plan: -Recheck in 6 months. Jerry Gutierrez, DO cnovsp on 2020-05-30 0 CNOVSP Visit (SP) Office (HEMAWS) [facility] AARON DONATO ([id number]) 1955 M [facility] Date Time Provider Department ([id number]) 06/26/20 8:30 AM JERRY GUTIERREZ During your visit today, we recorded the following informati on about you: Temperature Pulse Blood pressure Weight 98.4 degrees 76/minute 121/58 90.3 kg Maisha Lancaster LPN 06/26/2020 8:47 AM Signed Est patient. Six month OV. Discuss recent labs. Maisha Gutierrez DO 06/26/2020 8:56 AM Signed Diagnosis: 1) Macrocytic anemia secondary to hypothyroidism. HPI: The patient is a 65-year-old male who has a past medica l history significant for rhabdomyolysis secondary to HMG co-a reducta se inhibitor therapy (Crestor), stage 3 CKD, BPH (on Flomax). On CBC was noted to have macrocytic anemia. The total whit e count was 5400. Differential was normal. Hgb was 11.2 g/ dL with hematocrit of 34.7% and an MCV of 105.5. MCH was 34 pg. Platelet count 196,000. Ferritin was 773 when measured on 05/23/2019. Serum iron was 112 mcg/dL on 05/23/2019. Chemistries significant for serum creatinine of 1 .46 mg/dL. Estimated GFR was 52 cc/m. Total protein was 7.5 g/dL with an albumin of 4.0 g/dL. Globulin level was 3.5 g/dL. AST w as 71 with an ALT of 61. Bilirubin and alkaline phosphatase normal. Calcium nor mal at 8.5 mg/dL. CPK when measured on 07/12 was 4173. Repeat on 07/24 was 2784. When patient initially seen here in July 2019, he moglobin was 10.5 g/dL with an MCV of 106.1. RBC co unt slightly low 3.11 million cells per microliter. The remainder of the red cell indexes were normal. Total whi te count and differential were normal. Platelet count normal at her and 63,000. Significant lab work findings were creatinine 1.35 mg/dL. Sodium s lightly lower 135 mmol per liter. Started on levothyroxine 100 mcg daily. Was seen by a urologist in October for LUTS. Underwent cyst oscopy and was found to have overdistended bladder (str etched out). Patient self catheterizes twice a day. Presents for ongoing hematologic management. Interim history: Legs are stiff and sore when first gets up and m oving, but then pain subsides once he starts walking. Mild tingling left ball of the foot due to 'dropped' metatarsal. Chronic problem. No other symptoms of sensory ne uropathy. Still self catheterizing. PMH, medications and allergies personally reviewed by me dona strickland. Any changes documented in appropriate section. ROS: Constitutional: Denies episodes of fever and night sweats. Neuro: Denies NOONAN, vertigo, dizziness and imbalance. HEENT: No recent change in voice, vision or hearing. Resp: Denies cough, wheeze and hemoptysis. CVS: Denies exertional chest pain, PND, orthopnea. GI: Denies dysgeusia. Denies symptoms of stomatitis. Denies dysphagia and odynophagia. Denies reflux, n/v, change in bowel habits an d abdominal pain. : See above. Endo: Denies hot flashes. Denies polyuri a and polydipsia. Denies heat and cold intolerance. Musculoskeletal: Denies bone, back and pain. Derm: Denies rash. Denies jaundice and diffuse pruritis. Heme: Denies unusual bleeding and unexplained bruising. Psych: Normal mood. PHYSICAL EXAM: Vitals: Blood pressure 121/58, pulse 76, temperature 36.9 ?C (98.4 ?F), temperature source Temporal, weight 90.3 kg (199 lb). Well-appearing and in no acute distress. EYES: Sclerae are anicteric bilaterally. ENT: Oral mucosa is unremarkable. There is no sign of thrush or mucositis. NECK: Supple. No enlargement of thyroid. LYMPHATIC: There is no palpable cervical or supraclavicular adenopathy. RESPIRATORY: Inspiratory breath sounds a re of very diminished intensity in all rodrigues. No rales, wheezes or rhonchi. Expiratory phase is no rmal. CARDIOVASCULAR: Rhythm is regular. ABDOMEN: The abdomen is nondistended. No organomegaly. No te nderness. Extremities: No swelling or edema. SKIN: No jaundice or rash. No petechiae. NEUROLOGIC: certified medical technician II-XII are grossly intact. No focal motor we akness. LABS: Component Latest Ref Rng AND Units 06/19/2020 WBC 3.70 - 11.00 k/uL 7.62 RBC 4.20 - 6.00 m/uL 3.94 (L) Hemoglobin 13.0 - 17.0 g/dL 12.3 (L) Hematocrit 39.0 - 51.0 % 37.4 (L) MCV 80.0 - 100.0 fL 94.9 MCH 26.0 - 34.0 pG 31.2 MCHC 30.5 - 36.0 g/dL 32.9 RDW-CV 11.5 - 15.0 % 13.4 Platelet Count 150 - 400 k/uL 221 MPV 9.0 - 12.7 fL 9.4 Neut% % 62.8 Abs Neut (ANC) 1.45 - 7.50 k/uL 4.77 Lymph% % 23.2 Abs Lymph 1.00 - 4.00 k/uL 1.77 Walker% % 11.3 Abs Walker <0.87 k/uL 0.86 Eosin% % 2.2 Abs Eosin <0.46 k/uL 0.17 Baso% % 0.5 Abs Baso <0.11 k/uL 0.04 Nucleated Reds 0 /100 WBC 0.0 Absolute nRBC <0.01 k/uL <0.01 Diff Type Auto Diff Protein, Total 6.3 - 8.0 g/dL 6.7 Albumin 3.9 - 4.9 g/dL 4.0 Calcium 8.5 - 10.2 mg/dL 9.2 Bilirubin, Total 0.2 - 1.3 mg/dL 0.5 Alkaline Phosphatase 38 - 113 U/L 75 AST 14 - 40 U/L 15 Glucose 74 - 99 mg/dL 132 (H) BUN 9 - 24 mg/dL 12 Creatinine 0.73 - 1.22 mg/dL 0.78 Sodium 136 - 144 mmol/L 137 Potassium 3.7 - 5.1 mmol/L 3.8 Chloride 97 - 105 mmol/L 102 CO2 22 - 30 mmol/L 25 Anion Gap 9 - 18 mmol/L 10 ALT 10 - 54 U/L 10 eGFR- >60 eGFR-All Other Races . >60 TSH 0.270 - 4.200 uU/mL 1.830 B2 Microglobulin <3.1 mg/L 2.3 Component Latest Ref Rng AND Units 01/30/2018 08/13/2019 020 06/19/2020 Protein, Total 6.3 - 8.0 g/dL 6.8 6.9 6.8 6.3 Albumin 3.37 - 4.23 gm/dL 4.04 3.92 4.11 3.58 Alpha 1 Globulin 0.18 - 0.31 gm/dL 0.16 (L) 0.27 0.18 0.22 Alpha 2 Globulin 0.52 - 0.97 gm/dL 0.58 0.58 0.71 0.75 Beta Globulin 0.84 - 1.36 gm/dL 0.99 1.07 0.74 (L) 0.73 (L) Gamma Globulin 0.70 - 1.44 gm/dL 1.03 1.06 1.07 1.02 Interpretation (Prot Electro) SEE COMMENT SEE CO MMENT SEE COMMENT SEE COMMENT M-Protein Location N/A N/A N/A N/A M-Protein Concentration 0.00 gm/dL 0.00 0.00 0.00 0.00 SPE Staff Review Reviewed by Maco Chin M.D. ([id number]) Revie wed by Finesse Matias MD. ([id number]) Reviewed by Myke Gordon M.D., PhD ([id number]) Reviewed by Luis Armando Gordon M.D., PhD ([id number]) Component Latest Ref Rng AND Units 08/13/2019 12/20/20192019 MPA IgG, Serum 717 - 1,411 mg/dL 992 1,130 1,190 MPA IgA, Serum 78 - 391 mg/dL 307 244 305 MPA IgM, Serum 53 - 334 mg/dL 82 59 66 Theba Free, Serum 3.30 - 19.40 mg/L 28.2 (H) 35.6 (H) 28.8 ( H) Lambda Free, Serum 5.7 - 26.3 mg/L 18.6 25.4 18.4 K/L Ratio, Serum 0.26 - 1.65 1.52 1.40 1.57 MPA Result No M protein is identified. A poorly define d region of restricted mobility is present that may represent an M (A) . . . A poorly defined region of restricted mobility is present that may represent a n M (A) . . . A poorly defined region of restricted mobility is present that may represent an M (A) . . . Interpretation ([facility]) SEE COMMENT SEE COMMENT SEE COMMENT Staff Review ([facility]) Reviewed by Finesse Matias MD. ([id number]) Reviewed by Luis Armando Gordon M.D., PhD ([phone]) Reviewed by Luis Armando Gordon M.D., PhD ([id number]) Urine negative for MP by electrophoresis and immunofixation. ASSESSMENT/PLAN: (D53.9) Macrocytic anemia (primary encounter diagnosis) Assessment: -In summary the patient is a 65-year-old male who was initially referred for macrocytic anemia. Found to have significant hypothyroidism at the time of original workup (TSH 122.0 uU/mL). Serum kappa light chain mildly elevated but serum lambda light chain normal with normal ratio. Serum pro tein electrophoresis negative for M spike. Immunofixation suggested a poorly defined region of restricted mobility in the lambda cristofer the p attern was noted to be less well-defined or fainter than typically seen a monoclona l gammopathy. Thought to possibly represent either an atypical presentat ion of polyclonal immunoglobulins were the presence of a low level lambda containing monoclonal gammopathy. Urine has been negative for monoclonal protein b y both electrophoresis and immunofixation. TSH significantly improv ed and MCV decreased and hemoglobin improved, but has not normalized. -Improving n/n anemia. GFR now normal and chemistries (CMP) so far do not suggest hemolysis, but had marked elevation LDH last fall (resolving rhabdo though). -Reviewed labs--Since Hgb trending up, will chec k again in 6 months including other labs for anemia. Plan: -Recheck in 6 months. Jerry Gutierrez DO Referring Provider: JERRY GUTIERREZ [[id number]] Allergies As of Date: 06/26/2020 Noted Allergy Reaction CRESTOR (ROSUVASTATIN) 08/13/2019 14 - Other: See Comments Comments: Liver problems, muscle weakness PENICILLIN 08/24/2017 4 - Hives Date Reviewed: 06/26/2020 Reviewed by: Jerry Gutierrez - Fully Assessed Reason for Visit: Established Patient [175] Primary Visit Diagnosis:Anemia, unspecified type [D64.9] Order(s):VITAMIN B12 BLOOD [SQB12] Order #: [id number] FUTUR E IRON + TIBC [SQIRON] Order #: [id number] FUTURE FERRITIN BLD [SQFERR] Order #: [id number] FUTURE RETIC COUNT [SQRETIC] Order #: [id number] FUTURE ERYTHROPOIETIN/EPO [SQEPO] Order #: [id number] FUTURE LD LACTATE DEHYDRO [SQLD6] Order #: [id number] FUTURE ELAINE DIRECT [SQDAGT] Order #: [id number] FUTURE HAPTOGLOBIN BLD [SQHAPTO] Order #: [id number] FUTURE COPPER BLOOD [SQCOPPER] Order #: [id number] FUTURE TESTOSTERONE TOTAL [SQTESTO] Order #: [id number] FUTURE CBC + DIFF [SQCBCDIF] Order #: [id number] FUTURE COMP METABOLIC PANEL [SQCMP] Order #: [id number] FUTURE Follow-up and Disposition History Recorded Prescriptions as of 06/26/2020 Sig: VALSARTAN 40 MG TABLET Take 20 mg by mouth once kayce* LEVOTHYROXINE 100 MCG TABLET TAKE 1 TABLET BY MOUTH EVERY * CHOLECALCIFEROL (VITAMIN D3) * Take 2,000 Units by mouth onc * Problem List As Of Date 06/26/2020 Noted Resolved Bronchitis with airway obstruction (HCC) [J44.9]08/24/2017 Hypoxemia [R09.02] 08/24/2017 12/30/2017 Tobacco use disorder, continuous [F17.209] 08/24/20172017 Anemia [D64.9] 08/24/2017 Reducible right inguinal hernia [K40.90] 09/27/2017 12/30/19 18 Inguinal hernia [K40.90] 12/29/2017 02/01/2018 More... Pure hypercholesterolemia [E78.00] 01/01/2018 Kidney insufficiency [N28.9] 01/01/2018 08/09/2018 CKD (chronic kidney disease) stage 3, GFR 30-59*02/01/2018 Urine retention [R33.9] 02/06/2018 Visit Notes: >> Maisha Lancaster LPN Winnie Jun 26, 2020 8:17 AM Status: Phyllis vo Est patient. Six month OV. Discuss recent labs. Maisha Lancaster LPN Encounter Status:Closed by JERRY GUTIERREZ DO on 06/26/20 protein elec,ur rand on 2020-06-20 Albumin [Mass/Vol] 31.0 % Normal 06-20-2020 [facility] ([id number]) Comment: Performed By: #### HAPTO, B1 2, TSH, STREV, EPO, SERMPA, SEPG, MMA #### [facility] [address], [place] [address] Alpha 1 Globulin 4.0 >0 % Normal 06-20-2020 [facility] ([id number]) Comment: Performed By: #### HAPTO, B1 2, TSH, STREV, EPO, SERMPA, SEPG, MMA #### [facility] [address] [place] [address] Alpha 2 Globulin 15.3 % Normal 06-20-2020 [facility] ([id number]) Comment: Performed By: #### HAPTO, B1 2, TSH, STREV, EPO, SERMPA, SEPG, MMA #### [facility] [address] [address] Beta Globulin 28.7 % Normal 06-20-2020 [facility] ([id number]) Comment: Performed By: #### HAPTO, B1 2, TSH, STREV, EPO, SERMPA, SEPG, MMA #### [facility] [address] [address] Gamma Globulin 21.1 % Normal 06-20-2020 [facility] ([id number]) Comment: Performed By: #### HAPTO, B1 2, TSH, STREV, EPO, SERMPA, SEPG, MMA #### [facility] [address] [address] Interpretation SEE COMMENT Normal 06-20-2020 [facility] ([id number]) Comment: Result Comment: No definitiv e M protein is identified on protein electrophoresis. Performed By: #### HAPTO, B1 2, TSH, STREV, EPO, SERMPA, SEPG, MMA #### [facility] [address] [address] Protein (U) [Mass/Vol] 12 0-20 mg/dL Normal 020 [facility] ([id number]) Comment: Performed By: #### HAPTO, B1 2, TSH, STREV, EPO, SERMPA, SEPG, MMA #### [facility] [address] [place], [place] [address] Staff Review Reviewed by [place] Normal 0 [facility] MD Kesha ([id number]) [place] ([id number]) Comment: Performed By: #### HAPTO, B1 2, TSH, STREV, EPO, SERMPA, SEPG, MMA #### [facility] [address] [address] monoclonal prot ur on 2020-06-20 Protein No M protein is No M protein is Normal 06-20-20 20 [facility] [Mass/Vol] identified. identified. [facility] ([id number]) Comment: Performed By: #### HAPTO, B1 2, TSH, STREV, EPO, SERMPA, SEPG, MMA #### [facility] [address] [address] [facility] Staff Review Reviewed by [facility] Normal 05-29 [facility] MD Kesha ([id number]) [place] ([id number]) Comment: Performed By: #### HAPTO, B1 2, TSH, STREV, EPO, SERMPA, SEPG, MMA #### [facility] [address] [id number] tsh on 2020-06-19 TSH Qn 1.830 0.270-4.200 uU/mL Normal 06-19-2020 [facility] ([id number]) Comment: Performed By: #### HAPTO, B1 2, TSH, STREV, EPO, SERMPA, SEPG, MMA #### [facility] [address] [id number] protein electrophor. on 2020-06-19 Albumin [Mass/Vol] 3.58 3.37-4.23 gm/dL Normal 06-19-2020 [facility] ([id number]) Comment: Performed By: #### HAPTO, B1 2, TSH, STREV, EPO, SERMPA, SEPG, MMA #### [facility] [address] [address] Alpha 1 Globulin 0.22 0.18-0.31 gm/dL Normal 06-19-2020 [facility] ([id number]) Comment: Performed By: #### HAPTO, B1 2, TSH, STREV, EPO, SERMPA, SEPG, MMA #### [facility] [address] [address] Alpha 2 Globulin 0.75 0.52-0.97 gm/dL Normal 06-19-2020 [facility] (71950) Comment: Performed By: #### HAPTO, B1 2, TSH, STREV, EPO, SERMPA, SEPG, MMA #### [facility] [address] [address] Beta Globulin 0.73 0.84-1.36 gm/dL Low 06-19-2020 [facility] ([id number]) Comment: Performed By: #### HAPTO, B1 2, TSH, STREV, EPO, SERMPA, SEPG, MMA #### [facility] [address] [address] Gamma Globulin 1.02 0.70-1.44 gm/dL Normal 06-19-2020 [facility] ([id number]) Comment: Performed By: #### HAPTO, B1 2, TSH, STREV, EPO, SERMPA, SEPG, MMA #### [facility] [address] [address] Interpretation SEE COMMENT Normal 06-19-2020 [facility] ([id number]) Comment: Result Comment: No definitiv e M protein is identified on protein electrophoresis. Performed By: #### HAPTO, B1 2, TSH, STREV, EPO, SERMPA, SEPG, MMA #### [facility] [address] [address] M Zan Concentratn 0.00 0.00 gm/dL Normal 06-19-2020 [facility] ([id number]) Comment: Performed By: #### HAPTO, B1 2, TSH, STREV, EPO, SERMPA, SEPG, MMA #### [id number] [place] [address] Protein [Mass/Vol] 6.3 6.3-8.0 g/dL Normal 06-19-2020 [facility] ([id number]) Comment: Performed By: #### HAPTO, B1 2, TSH, STREV, EPO, SERMPA, SEPG, MMA #### [place] [address] Protein [Mass/Vol] N/A Normal 06-19-2020 [facility] ([id number]) Comment: Performed By: #### HAPTO, B1 2, TSH, STREV, EPO, SERMPA, SEPG, MMA #### [address] [address] SPE Staff Review Reviewed by Luis Armando Malin 05-29 [facility] Kelby Gordon, PhD [facility] ([id number]) ([id number]) Comment: Performed By: #### HAPTO, B1 2, TSH, STREV, EPO, SERMPA, SEPG, MMA #### [place] [id number] monclnl protein, ser on 2020-06-19 K/L Ratio, Serum 1.57 0.26-1.65 Normal 06-19-2020 [facility] ([id number]) Comment: Performed By: #### HAPTO, B1 2, TSH, STREV, EPO, SERMPA, SEPG, MMA #### [facility] [address] [place], [place] [id number] Theba, Free, Serum 28.8 3.30-19.40 mg/L High 06-19-2020 [facility] (77206) Comment: Result Comment: Test perform ed by an immunoturbidimetric assay on Optilite instrument from [employer] . Immunoglobulin free light chain assay results should be interpreted in con junction with other tests and in correlation with clinical picture. Performed By: #### HAPTO, B1 2, TSH, STREV, EPO, SERMPA, SEPG, MMA #### [facility] [address] [address] Lambda, Free, Serum 18.4 5.7-26.3 mg/L Normal 06-19-2020 [facility] ([id number]) Comment: Result Comment: Test perform ed by an immunoturbidimetric assay on Optilite instrument from [employer] . Immunoglobulin free light chain assay results should be interpreted in con junction with other tests and in correlation with clinical picture. Performed By: #### HAPTO, B1 2, TSH, STREV, EPO, SERMPA, SEPG, MMA #### [facility] [address] [address] MPA Interpretation SEE COMMENT Normal 0 [facility] ([id number]) Comment: Result Comment: Poorly defin ed region of restricted mobility in the lambda cristofer. Pattern is less well defined or fainter than typically seen in monoclonal gammopathy. This could represent either an atyp ical presentation of polyclo nal immunoglobulins or the presence of a low level lambda containing monoclonal gammopathy. If clinically indicated, uri ne monoclonal protein analysis and serum free light chain measurements are recommended to evaluate further for monoclonal gammopathy. Clinical correlation is necessary. Performed By: #### HAPTO, B1 2, TSH, STREV, EPO, SERMPA, SEPG, MMA #### [facility] [address] [place], [place] [address] MPA Serum IgA 305 78-391 mg/dL Normal 06-19-2020 [facility] ([id number]) Comment: Performed By: #### HAPTO, B1 2, TSH, STREV, EPO, SERMPA, SEPG, MMA #### [facility] [address] [place], [place] [address] MPA Serum IgG 8548 998-2081 mg/dL Normal 06-19-2020 [facility] ([id number]) Comment: Performed By: #### HAPTO, B1 2, TSH, STREV, EPO, SERMPA, SEPG, MMA #### [facility] [address] [place], [place] [address] MPA Serum IgM 66 53-334 mg/dL Normal 06-19-2020 [facility] (51600) Comment: Performed By: #### HAPTO, B1 2, TSH, STREV, EPO, SERMPA, SEPG, MMA #### [facility] [address], [place] [address] Protein A poorly No M protein is Critically 06-19-2020 Cl elvi [Mass/Vol] defined region identified. abnormal Cl inic of restricted [place] and mobility is (19320) present that may represent an M protein. Comment: Performed By: #### HAPTO, B1 2, TSH, STREV, EPO, SERMPA, SEPG, MMA #### [facility] [address] [place], [place] [address] Staff Review Reviewed by Luis Armando Normal 06-19-20 20 [facility] Kelby Gordon, PhD C [facility] (73045) ([id number]) Comment: Performed By: #### HAPTO, B1 2, TSH, STREV, EPO, SERMPA, SEPG, MMA #### [facility] [address] [place], [place] [address] comp metabolic panel on 2020-06-19 Albumin [Mass/Vol] 4.0 3.9-4.9 g/dL Normal 06-19-2020 [facility] ([id number]) ALP [Catalytic 75 38-113 U/L Normal 06-19-2020 [facility] activity/Vol] [place] and (58482) ALT [Catalytic 10 10-54 U/L Normal 06-19-2020 [facility] activity/Vol] [place] and (90992) Anion gap 10 9-18 mmol/L Normal 06-19-2020 [facility] [Moles/Vol] [facility] AST [Catalytic 15 14-40 U/L Normal 06-19-2020 [facility] activity/Vol] [place] and (90090) Bilirubin [Mass/Vol] 0.5 0.2-1.3 mg/dL Normal 0 [facility] (98150) Calcium [Mass/Vol] 9.2 8.5-10.2 mg/dL Normal 06-19-2020 [facility] (63745) Chloride [Moles/Vol] 102 97-105 mmol/L Normal 0 [facility] (04979) CO2 [Moles/Vol] 25 22-30 mmol/L Normal 06-19-2020 [facility] (97606) Creatinine 0.78 0.73-1.22 mg/dL Normal 06-19-2020 [facility] [Mass/Vol] [place] (37014) eGFR- Amer. >60 Normal 06-19-2020 [facility] (45710) GFR/1.73 sq M >60 mL/min/{1.73_m Normal 06-19-2020 [facility] predicted among 2} [facility] (00553) non-blacks MDRD (S/P/Bld) [Vol rate/Area] Comment: Result Comment: eGFR (Estima chilango GFR) Units of measure: mL/min/1.73 meters squared eGFR is derived from the ree xpressed MDRD Study equation using the following parameters: serum creatinine, age, gender and race. The creatinine assay has been calibrated to be traceable to IDMS. An eGFR <60 mL/min/1.73m2 fo r >3 months is consistent with chronic kidney disease. Refer to KDOQI guidelines for clinical interpretation. In patients with unstable re nal function, e.g. those with acute kidney injury, the eGFR may not accurately reflect actual GFR. Glucose [Mass/Vol] 132 74-99 mg/dL High 06-19-2020 [facility] (80025) Comment: Result Comment: The [place] [employer] (ADA) provides guidance for cutoff values for fasting glucose and random glucose. The ADA defines fasting as no caloric intake for at least 8 hours. Fas ting plasma glucose results between 100 to 125 mg/dL indicate increased risk for diabetes (prediabetes). Fasting plasma glucose resul ts greater than or equal to 126 mg/dL meet the criteria for diagnosis of diabetes. In the absence of unequivocal hyperglycemia, results should be confirmed by repeat testing. In a patient with classic s ymptoms of hyperglycemia or hyperglycemic crisis, random plasma glucose results greater than or equal to 200 mg/dL meet the criteria for diagnosis of diabetes. Reference: Standards of [facility] Care in Diabetes 2016, [place] [employer] Association. Diabetes Care. 2016.39(Suppl 1). Potassium [Moles/Vol] 3.8 3.7-5.1 mmol/L Normal 06-19-20 20 [facility] (61281) Protein [Mass/Vol] 6.7 6.3-8.0 g/dL Normal 06-19-2020 [facility] (33609) Sodium [Moles/Vol] 137 136-144 mmol/L Normal 06-19-2020 [facility] (23528) Urea nitrogen [Mass/Vol] 12 9-24 mg/dL Normal 06-19 [facility] (91839) cbc and differential on 2020-06-19 Abs Baso 0.04 <0.11 k/uL Normal 06-19-2020 [facility] (75078) Abs Walker 0.86 <0.87 k/uL Normal 06-19-2020 [facility] (77570) Abs Neut 4.77 1.45-7.50 k/uL Normal 06-19-2020 [facility] (55296) Absolute nRBC <0.01 <0.01 Normal 06-19-2020 [facility] (18060) Basophils/100 WBC 0.5 % Normal 06-19-2020 [facility] ([facility] [place] (58429) DTYPE Auto Diff Normal 06-19-2020 [facility] (80028) Eosinophils (Bld) 0.17 <0.46 k/uL Normal 06-19-2020 [facility] [#/Vol] [place] (30066) Eosinophils/100 WBC 2.2 % Normal 06-19-2020 [facility] (Bld) [place] (88378) Erythrocyte 13.4 11.5-15.0 % Normal 06-19-2020 [facility] distribution width C [facility] ([id number]) (RBC) [Ratio] Hematocrit (d) 37.4 39.0-51.0 % Low 06-19-2020 [facility] [Volume fraction] [facility] (79444) Hemoglobin (Bld) 12.3 13.0-17.0 g/dL Low 06-19-2020 [facility] [Mass/Vol] [place] (64951) Lymphocytes (Bld) 1.77 1.00-4.00 k/uL Normal 06-19-2020 [facility] [#/Vol] [place] (65235) Lymphocytes/100 WBC 23.2 % Normal 06-19-2020 [facility] (d) [place] (90573) MCH (RBC) [Entitic 31.2 26.0-34.0 pG Normal 06-19-2020 [facility] mass] [place] ([id number]) MCHC (RBC) 32.9 30.5-36.0 g/dL Normal 06-19-2020 [facility] [Mass/Vol] [place] ([id number]) MCV (RBC) [Entitic 94.9 80.0-100.0 fL Normal 06-19-2020 [facility] vol] [place] (18957) Monocytes/100 WBC 11.3 % Normal 06-19-2020 [facility] (d) [place] (82985) Neutrophils/100 WBC 62.8 % Normal 06-19-2020 [facility] (Bld) [place] (97777) NRBCs 0.0 0 /100 WBC Normal 06-19-2020 [facility] (10105) Platelet mean volume 9.4 9.0-12.7 fL Normal 0 [facility] ([facility]) [Entitic vol] [place] (11037) Platelets (Bld) 221 150-400 k/uL Normal 06-19-2020 [facility] [#/Vol] [place] (52869) RBC (d) [#/Vol] 3.94 4.20-6.00 m/uL Low 06-19-2020 [facility] (92359) WBC (Bld) [#/Vol] 7.62 3.70-11.00 k/uL Normal 06-19-2020 [facility] (52433) b2 microglobulin on 2020-06-19 Globulin (S) [Mass/Vol] 2.3 <3.1 mg/L Normal 2019 [facility] (32272) Comment: Performed By: #### HAPTO, B1 2, TSH, STREV, EPO, SERMPA, SEPG, MMA #### [facility] [address] [place] [id number] progress on 2019-11 PROGRESS HNO ID: [id number] Normal 12-27-2019 [facility] Author: Jerry Gutierrez [place] ([id number]) Service: ? Author Type: Physician Type: Progress Notes Filed: 12/27/2019 9:29 AM Note Text: Diagnosis: 1) Macrocytic anemia secondary to hypothyroidism. 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 On CBC was noted to have macrocytic anemia. The total white count is 5400. Differential was normal. Myoglobin was 11.2 g/dL with hemato crit of 34.7% and an MCV of 105.5. MCH was 34 pg. Platelet count 196,000. Ferritin was 773 when measured on 05/23/2019. Serum iron was 112 mcg/dL on 05/23/2019. Chemistries significant for serum creatinine of 1 .46 mg/dL. Estimated GFR was 52 cc/m. Total protein was 7.5 g/dL with a n albumin of 4.0 g/dL. Globulin level was 3.5 g/dL. AST was 71 with an AL T of 61. Bilirubin and alkaline phosphatase normal. Calcium normal at 8.5 mg/dL. CPK when measured on 07/12 was 4173. Repeat on 07/24 was 2784. Presents for ongoing hematologic management. Interim history: When patient initially seen here in July 2019, hemoglob in was 10.5 g/dL with an MCV of 106.1. RBC count slightly low 3.11 luke on cells per microliter. The remainder of the red cell indexes were jaylyn l. Total white count and differential were normal. Platelet count normal at her and 63,000. Significant lab work findings were creatinine 1.35 m g/dL. Sodium slightly lower 135 mmol per liter. Started on levothyroxine 100 mcg daily. Was seen by a urologist in October for LUTS. Underwent cyst oscopy and was found to have overdistended bladder (stretched out). Patient self catheterizes twice a day now. 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 Normal appetite. No dyspnea at rest or with exertion. PMH, medications and allergies personally reviewed by me aaron gooden. Any changes documented in appropriate section. ROS: Constitutional: Denies episodes of fever and night sweats. Neuro: Denies NOONAN, vertigo, dizziness and imbalance. HEENT: No recent change in voice, vision or hearing. Resp: Denies cough, wheeze and hemoptysis. CVS: Denies exertional chest pain, PND, orthopnea. GI: Denies dysgeusia. Denies symptoms of stomatitis. Denies dysphagia and odynophagia. Denies reflux, n/v, change in bowel habits and abdominal pain. : See above. Endo: Denies hot flashes. Denies polyuria and polydipsia. De nies heat and cold intolerance. Musculoskeletal: Denies bone, back and pain. Derm: Denies rash. Denies jaundice and diffuse pruritis. Heme: Denies unusual bleeding and unexplained bruising. Psych: Normal mood. PHYSICAL EXAM: Vitals: Blood pressure 123/66, pulse (!) 58, temperature 36. 4 ?C (97.6 ?F), temperature source Temporal, weight 90.5 kg (199 lb 8 o z). Well-appearing and in no acute distress. EYES: Sclerae are anicteric bilaterally. ENT: Oral mucosa is unremarkable. There is no sign of thrush or mucositis. NECK: Supple. No enlargement of thyroid. LYMPHATIC: There is no palpable cervical, supraclavicular, a xillary or inguinal adenopathy. RESPIRATORY: Inspiratory breath sounds are of very diminishe d intensity in all rodrigues. No rales, wheezes or rhonchi. Expiratory phase i s normal. CARDIOVASCULAR: Rhythm is regular. Normal intensity S1/S2. T here is no gallop or murmur. ABDOMEN: The abdomen is nondistended. No organomegaly. No te nderness. Extremities: No swelling or edema. SKIN: No jaundice or rash. No petechiae. NEUROLOGIC: certified medical technician II-XII are grossly intact. No focal motor we akness. LABS: Component Latest Ref Rng AND Units 08/13/2019 12/20/2019 WBC 3.70 - 11.00 k/uL 4.16 RBC 4.20 - 6.00 m/uL 3.11 (L) Hemoglobin 13.0 - 17.0 g/dL 10.5 (L) Hematocrit 39.0 - 51.0 % 33.0 (L) MCV 80.0 - 100.0 fL 106.1 (H) MCH 26.0 - 34.0 pG 33.8 MCHC 30.5 - 36.0 g/dL 31.8 RDW-CV 11.5 - 15.0 % 13.8 Platelet Count 150 - 400 k/uL 163 MPV 9.0 - 12.7 fL 10.8 Neut% % 49.0 Abs Neut (ANC) 1.45 - 7.50 k/uL 2.03 Lymph% % 39.7 Abs Lymph 1.00 - 4.00 k/uL 1.65 Walker% % 7.7 Abs Walker <0.87 k/uL 0.32 Eosin% % 2.6 Abs Eosin <0.46 k/uL 0.11 Baso% % 1.0 Abs Baso <0.11 k/uL 0.04 Nucleated Reds 0 /100 WBC 0.0 Absolute nRBC <0.01 k/uL <0.01 Diff Type Auto Diff Staff Review, CBCDIF SEE COMMENT Pathologist for Staff Review The Staff Review on this sample was cancelled because the hematology analyzer did . . . WBC, [place]te 3.70 - 11.00 k/uL 6.65 RBC, [place] 4.20 - 6.00 m/uL 3.77 (L) Hemoglobin, [place] 13.0 - 17.0 g/dL 11.9 (L) Hematocrit, Junito 39.0 - 51.0 % 37.0 (L) MCV, Junito 80.0 - 100.0 fL 98.1 MCH, [place] 26.0 - 34.0 pg 31.6 MCHC, Junito 30.5 - 36.0 g/dL 32.2 RDW, Junito 11.5 - 15.0 % 13.0 Platelet Cnt, Junito 150 - 400 k/uL 221 MPV, Junito 9.0 - 12.7 fL 9.9 Neut%, [place]te % 58.2 Lymp%, [place] % 26.9 Walker%, Junito % 11.3 Eos%, [place] % 3.3 Baso%, [place] % 0.3 Abs Neut, [place] 1.45 - 7.50 k/uL 3.87 Abs Lymp, Junito 1.00 - 4.00 k/uL 1.79 Abs Walker, [place] <0.87 k/uL 0.75 Abs Eos, [place] <0.46 k/uL 0.22 Abs Baso, Junito <0.11 k/uL <0.03 Component Latest Ref Rng AND Units 08/13/2019 Protein, Total 6.0 - 8.4 g/dL 6.9 Albumin 3.37 - 4.23 gm/dL 3.92 Alpha 1 Globulin 0.18 - 0.31 gm/dL 0.27 Alpha 2 Globulin 0.52 - 0.97 gm/dL 0.58 Beta Globulin 0.84 - 1.36 gm/dL 1.07 Gamma Globulin 0.70 - 1.44 gm/dL 1.06 Interpretation (Prot Electro) SEE COMMENT M-Protein Location N/A M-Protein Concentration 0.00 gm/dL 0.00 SPE Staff Review Reviewed by Finesse Matias MD. ([id number]) MPA IgG, Serum 717 - 1,411 mg/dL 992 MPA IgA, Serum 78 - 391 mg/dL 307 MPA IgM, Serum 53 - 334 mg/dL 82 Theba Free, Serum 3.30 - 19.40 mg/L 28.2 (H) Lambda Free, Serum 5.7 - 26.3 mg/L 18.6 K/L Ratio, Serum 0.26 - 1.65 1.52 MPA Result No M protein is identified. A poorly defined zachary on of restricted mobility is present that may represent an M (A) . . . Interpretation ([facility]) SEE COMMENT Staff Review ([facility]) Reviewed by Finesse Matias MD. ([id number]) Component Latest Ref Rng AND Units 12/20/2019 Protein, Urine Random 0 - 20 mg/dL 4 Albumin, Urine (Prot Electro) % 31.8 Alpha 1 Globulin, Urine >0 % 8.2 Alpha 2 Globulin, Urine % 13.7 Beta Globulin, Urine % 25.2 Gamma Globulin, Urine % 21.1 Interpretation (Urine Electro) SEE COMMENT Staff Review (Urine Electro) Reviewed by Jennifer Marr, PhD ([id number]) Result ([facility]) No M protein is identified. No M protein is id entified. Staff Review ([facility]) Reviewed by Luis Armando Gordon M.D., PhD ([phone]) ASSESSMENT/PLAN: (D53.9) Macrocytic anemia (primary encounter diagnosis) Assessment: -Patient was found to have significant hypothyroidism at the time of original workup. Serum kappa light chain elevated but serum lambda light chain normal with normal ratio. Serum protein electrophoresi s negative for M spike. Immunofixation suggested a poorly defined region of restricted mobility in the lambda Cristofer the pattern was noted to be less well-defined or fainter than typically seen a monoclonal gammopathy. Thou ght to possibly represent either an atypical presentation of polycl onal immunoglobulins were the presence of a low level lambda cont aining monoclonal gammopathy. -TSH significantly improved. MCV decreased and hemoglobin im proving suggesting hypothyroidism may have been the cause of the mac rocytic anemia. Plan: -Continue thyroid replacement and care under PCP. -Recheck in about 6 months. Jerry Gutierrez DO cnovsp on 2019-11-3 0 CNOVSP Visit (SP) Office ([facility]MA[facility]) Normal [place] AARON Mena ([id number]) 1955 [facility] Date Time Provider Department ([id number]) 12/27/19 9:10 AM JERRY GUTIERREZ During your visit today, we recorded the following informati on about you: Temperature Pulse Blood pressure Weight 97.6 degrees 58/minute 123/66 90.5 kg Jerry Gutierrez DO 12/27/2019 9:29 AM Signed Diagnosis: 1) Macrocytic anemia secondary to hypothyroidism. 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 On CBC was noted to have macrocytic anemia. The total white count is 5400. Differential was normal. Myoglobin was 11.2 g/dL with hematocrit of 34.7% and an MCV of 105.5. MCH was 34 pg. Platelet count 196,000. Ferritin was 773 when measured on 05/23/2019. Serum iron was 112 mcg/dL on 05/23/2019. Chemistries significant for serum creatinine of 1 .46 mg/dL. Estimated GFR was 52 cc/m. Total protein was 7.5 g/dL with an albumin of 4.0 g/dL. Globulin level was 3.5 g/dL. AST w as 71 with an ALT of 61. Bilirubin and alkaline phosphatase normal. Calcium nor mal at 8.5 mg/dL. CPK when measured on 07/12 was 4173. Repeat on 07/24 was 2784. Presents for ongoing hematologic management. Interim history: When patient initially seen here in July 2019, he moglobin was 10.5 g/dL with an MCV of 106.1. RBC co unt slightly low 3.11 million cells per microliter. The remainder of the red cell indexes were normal. Total whi te count and differential were normal. Platelet count normal at her and 63,000. Significant lab work findings were creatinine 1.35 mg/dL. Sodium s lightly lower 135 mmol per liter. Started on levothyroxine 100 mcg daily. Was seen by a urologist in October for LUTS. Underwent cyst oscopy and was found to have overdistended bladder (str etched out). Patient self catheterizes twice a day now. 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 Normal appetite. No dyspnea at rest or with exertion. PMH, medications and allergies personally reviewed by me dona strickland. Any changes documented in appropriate section. ROS: Constitutional: Denies episodes of fever and night sweats. Neuro: Denies NOONAN, vertigo, dizziness and imbalance. HEENT: No recent change in voice, vision or hearing. Resp: Denies cough, wheeze and hemoptysis. CVS: Denies exertional chest pain, PND, orthopnea. GI: Denies dysgeusia. Denies symptoms of stomatitis. Denies dysphagia and odynophagia. Denies reflux, n/v, change in bowel habits an d abdominal pain. : See above. Endo: Denies hot flashes. Denies polyuri a and polydipsia. Denies heat and cold intolerance. Musculoskeletal: Denies bone, back and pain. Derm: Denies rash. Denies jaundice and diffuse pruritis. Heme: Denies unusual bleeding and unexplained bruising. Psych: Normal mood. PHYSICAL EXAM: Vitals: Blood pressure 123/66, pulse (!) 58, temperature 3 6.4 ?C (97.6 ?F), temperature source Temporal, weight 90.5 kg (199 lb 8 oz). Well-appearing and in no acute distress. EYES: Sclerae are anicteric bilaterally. ENT: Oral mucosa is unremarkable. There is no sign of thrush or mucositis. NECK: Supple. No enlargement of thyroid. LYMPHATIC: There is no palpa ble cervical, supraclavicular, axillary or inguinal adenopathy. RESPIRATORY: Inspiratory breath sounds a re of very diminished intensity in all rodrigues. No rales, wheezes or rhonchi. Expiratory phase is no rmal. CARDIOVASCULAR: Rhythm is regular. Normal intens ity S1/S2. There is no gallop or murmur. ABDOMEN: The abdomen is nondistended. No organomegaly. No te nderness. Extremities: No swelling or edema. SKIN: No jaundice or rash. No petechiae. NEUROLOGIC: certified medical technician II-XII are grossly intact. No focal motor we akness. LABS: Component Latest Ref Rng AND Units 08/13/2019 12/20/2019 WBC 3.70 - 11.00 k/uL 4.16 RBC 4.20 - 6.00 m/uL 3.11 (L) Hemoglobin 13.0 - 17.0 g/dL 10.5 (L) Hematocrit 39.0 - 51.0 % 33.0 (L) MCV 80.0 - 100.0 fL 106.1 (H) MCH 26.0 - 34.0 pG 33.8 MCHC 30.5 - 36.0 g/dL 31.8 RDW-CV 11.5 - 15.0 % 13.8 Platelet Count 150 - 400 k/uL 163 MPV 9.0 - 12.7 fL 10.8 Neut% % 49.0 Abs Neut (ANC) 1.45 - 7.50 k/uL 2.03 Lymph% % 39.7 Abs Lymph 1.00 - 4.00 k/uL 1.65 Walker% % 7.7 Abs Walker <0.87 k/uL 0.32 Eosin% % 2.6 Abs Eosin <0.46 k/uL 0.11 Baso% % 1.0 Abs Baso <0.11 k/uL 0.04 Nucleated Reds 0 /100 WBC 0.0 Absolute nRBC <0.01 k/uL <0.01 Diff Type Auto Diff Staff Review, CBCDIF SEE COMMENT Pathologist for Staff Review The Staff Review on this sample was cancelled because the hematology analyzer did . . . WBC, [place]te 3.70 - 11.00 k/uL 6.65 RBC, [place] 4.20 - 6.00 m/uL 3.77 (L) Hemoglobin, [place] 13.0 - 17.0 g/dL 11.9 (L) Hematocrit, [place] 39.0 - 51.0 % 37.0 (L) MCV, [place] 80.0 - 100.0 fL 98.1 MCH, [place] 26.0 - 34.0 pg 31.6 MCHC, [place] 30.5 - 36.0 g/dL 32.2 RDW, [place] 11.5 - 15.0 % 13.0 Platelet Cnt, [place] 150 - 400 k/uL 221 MPV, [place] 9.0 - 12.7 fL 9.9 Neut%, [place] % 58.2 Lymp%, [place] % 26.9 Walker%, [place] % 11.3 Eos%, [place] % 3.3 Baso%, [place] % 0.3 Abs Neut, [place] 1.45 - 7.50 k/uL 3.87 Abs Lymp, [place] 1.00 - 4.00 k/uL 1.79 Abs Walker, [place] <0.87 k/uL 0.75 Abs Eos, [place] <0.46 k/uL 0.22 Abs Baso, [place] <0.11 k/uL <0.03 Component Latest Ref Rng AND Units 08/13/2019 Protein, Total 6.0 - 8.4 g/dL 6.9 Albumin 3.37 - 4.23 gm/dL 3.92 Alpha 1 Globulin 0.18 - 0.31 gm/dL 0.27 Alpha 2 Globulin 0.52 - 0.97 gm/dL 0.58 Beta Globulin 0.84 - 1.36 gm/dL 1.07 Gamma Globulin 0.70 - 1.44 gm/dL 1.06 Interpretation (Prot Electro) SEE COMMENT M-Protein Location N/A M-Protein Concentration 0.00 gm/dL 0.00 SPE Staff Review Reviewed by Finesse Matias MD. ([id number]) MPA IgG, Serum 717 - 1,411 mg/dL 992 MPA IgA, Serum 78 - 391 mg/dL 307 MPA IgM, Serum 53 - 334 mg/dL 82 Theba Free, Serum 3.30 - 19.40 mg/L 28.2 (H) Lambda Free, Serum 5.7 - 26.3 mg/L 18.6 K/L Ratio, Serum 0.26 - 1.65 1.52 MPA Result No M protein is identified. A poorly define d region of restricted mobility is present that may represent an M (A) . . . Interpretation (MPA) SEE COMMENT Staff Review (MPA) Reviewed by Finesse Matias MD. ([id number]) Component Latest Ref Rng AND Units 12/20/2019 Protein, Urine Random 0 - 20 mg/dL 4 Albumin, Urine (Prot Electro) % 31.8 Alpha 1 Globulin, Urine >0 % 8.2 Alpha 2 Globulin, Urine % 13.7 Beta Globulin, Urine % 25.2 Gamma Globulin, Urine % 21.1 Interpretation (Urine Electro) SEE COMMENT Staff Review (Urine Electro) Reviewed by Jennifer Marr, PhD ([id number]) Result ([facility]) No M protein is identified. No M protein is id entified. Staff Review ([facility]) Reviewed by Luis Armando Gordon M.D., PhD ([phone]) ASSESSMENT/PLAN: (D53.9) Macrocytic anemia (primary encounter diagnosis) Assessment: -Patient was found to have significant hypothyro idism at the time of original workup. Serum kappa light chain elevated but serum medina bda light chain normal with normal ratio. Serum protein electrophoresis negative fo r M spike. Immunofixation suggested a poorly define d region of restricted mobility in the lambda Cristofer the pattern was noted to be less well-defined or fainter than typically seen a monoclonal gammopathy. Thought to possibly represent either an atypical presentation of polyclonal immu noglobulins were the presence of a low level lambda containing monoclonal gammopathy. -TSH significantly improved. MCV decreas ed and hemoglobin improving suggesting hypothyroidism may have been the cause of the macrocytic ane gallo. Plan: -Continue thyroid replacement and care under PCP. -Recheck in about 6 months. Jerry Gutierrez DO Referring Provider: JERRY GUTIERREZ [[id number]] Allergies As of Date: 12/27/2019 Noted Allergy Reaction CRESTOR (ROSUVASTATIN) 08/13/2019 14 - Other: See Comments Comments: Liver problems, muscle weakness PENICILLIN 08/24/2017 4 - Hives Date Reviewed: 12/27/2019 Reviewed by: Shanta Rios - Fully Assessed Reason for Visit: Established Patient [175] Primary Visit Diagnosis:Anemia, unspecified type [D64.9] Follow-up and Disposition History Recorded Prescriptions as of 12/27/2019 Sig: LEVOTHYROXINE 100 MCG TABLET TAKE 1 TABLET BY MOUTH EVERY * CHOLECALCIFEROL (VITAMIN D3) * Take 2,000 Units by mouth onc * TAMSULOSIN 0.4 MG CAPSULE TAKE 1 CAPSULE BY MOUTH DAILY* Problem List As Of Date 12/27/2019 Noted Resolved Bronchitis with airway obstruction (HCC) [J44.9]08/24/2017 Hypoxemia [R09.02] 08/24/2017 12/30/2017 Tobacco use disorder, continuous [F17.209] 08/24/20172017 Anemia [D64.9] 08/24/2017 Reducible right inguinal hernia [K40.90] 09/27/2017 12/30/19 18 Inguinal hernia [K40.90] 12/29/2017 02/01/2018 More... Pure hypercholesterolemia [E78.00] 01/01/2018 Kidney insufficiency [N28.9] 01/01/2018 08/09/2018 CKD (chronic kidney disease) stage 3, GFR 30-59*02/01/2018 Urine retention [R33.9] 02/06/2018 Encounter Status:Closed by JERRY GUTIERREZ DO on 12/27/19 [place] cbc and diff on 2019-12-20 Basophils/100 WBC (Bld) 0.3 % Normal 2019 [facility] ([id number]) Eosinophils/100 WBC (Bld) 3.3 % Normal 11-29 [facility] (73530) Erythrocyte distribution 13.0 11.5-15.0 % Normal 12-20 [facility] width (RBC) [Ratio] [place] (08169) Hematocrit (Bld) [Volume 37.0 39.0-51.0 % Low 12-20 [facility] fraction] [place] ([id number]) Hemoglobin (Bld) 11.9 13.0-17.0 g/dL Low 12-20-2019 [facility] [Mass/Vol] [place] (02433) Lymphocytes/100 WBC (Bld) 26.9 % Normal 11-29 [facility] (63597) MCH (RBC) [Entitic mass] 31.6 26.0-34.0 pg Normal 12-20 [facility] (56980) MCHC (RBC) [Mass/Vol] 32.2 30.5-36.0 g/dL Normal 12-20-19 [facility] (08168) MCV (RBC) [Entitic vol] 98.1 80.0-100.0 fL Normal 12-20 [facility] (18681) Neutrophils/100 WBC (Bld) 58.2 % Normal 11-29 [facility] (67060) Platelet mean volume 9.9 9.0-12.7 fL Normal 0 [facility] (Bld) [Entitic vol] [place] (90027) Comment: Result Comment: Test perform ed by: [facility] [place], [address] [place], [place] [address]. RBC (Bld) [#/Vol] 3.77 4.20-6.00 m/uL Low 12-20-2019 [facility] (49156) WBC (Bld) [#/Vol] 6.65 3.70-11.00 k/uL Normal 12-20-2019 [facility] (97216) [place] Abs Baso <0.03 <0.11 Normal 12-20-2019 [facility] (93231) [place] Abs Eos 0.22 <0.46 k/uL Normal 12-20-2019 [facility] (39530) [place] Abs Lymp 1.79 1.00-4.00 k/uL Normal 12-20-2019 [facility] (66089) [place] Abs Walker 0.75 <0.87 k/uL Normal 12-20-2019 [facility] (71767) [place] Abs Neut 3.87 1.45-7.50 k/uL Normal 12-20-2019 [facility] (55160) [place] Walker% 11.3 % Normal 12-20-2019 [facility] (81210) [place] Platelet Cnt 221 150-400 k/uL Normal 0 [facility] (19704) tsh on 2019-12-20 TSH Qn 11.400 0.270-4.200 uU/mL High 12-20-2019 [facility] (42330) Comment: Performed By: #### B2M, TSH, CBCDIF, SEPG, SERMPA ####[facility] [address] [place], [place] [phone] protein electrophor. on 2019-12-20 Albumin [Mass/Vol] 4.11 3.37-4.23 gm/dL Normal 12-20-2019 [facility] (17952) Comment: Performed By: #### B2M, TSH, CBCDIF, SEPG, SERMPA ####[facility] [address] [place], [place] [phone] Alpha 1 Globulin 0.18 0.18-0.31 gm/dL Normal 12-20-2019 [facility] (93964) Comment: Performed By: #### B2M, TSH, CBCDIF, SEPG, SERMPA ####[facility] [place] [phone] Alpha 2 Globulin 0.71 0.52-0.97 gm/dL Normal 12-20-2019 [facility] (75129) Comment: Performed By: #### B2M, TSH, CBCDIF, SEPG, SERMPA ####[place] [address] [place] [phone] Beta Globulin 0.74 0.84-1.36 gm/dL Low 12-20-2019 [facility] (76364) Comment: Performed By: #### B2M, TSH, CBCDIF, SEPG, SERMPA ####[address] [place] [phone] Gamma Globulin 1.07 0.70-1.44 gm/dL Normal 12-20-2019 [facility] (76819) Comment: Performed By: #### B2M, TSH, CBCDIF, SEPG, SERMPA ####[place] [address] [place] [phone] Interpretation SEE COMMENT Normal 12-20-2019 [facility] (69606) Comment: Result Comment: No definitiv e M protein is identified on protein electrophoresis. Performed By: #### B2M, TSH, CBCDIF, SEPG, SERMPA ####[place] [address] [place] [phone] M Zan Concentratn 0.00 0.00 gm/dL Normal 12-20-2019 [facility] (44512) Comment: Performed By: #### B2M, TSH, CBCDIF, SEPG, SERMPA ####[place] [address] [place] [phone] Protein [Mass/Vol] N/A Normal 12-20-2019 [facility] (76883) Comment: Performed By: #### B2M, TSH, CBCDIF, SEPG, SERMPA ####[facility] [place], [place] [phone] Protein [Mass/Vol] 6.8 6.0-8.4 g/dL Normal 12-20-2019 [facility] (43472) Comment: Performed By: #### B2M, TSH, CBCDIF, SEPG, SERMPA ####[facility] [place], [place] [phone] SPE Staff Review Reviewed by Luis Armando Malin 11-29 [facility] Kelby Grodon, PhD Cheryl [facility] (00398) (66465) Comment: Performed By: #### B2M, TSH, CBCDIF, SEPG, SERMPA ####[place] [address] [place], [place] [phone] protein elec,ur rand on 2019-12-20 Albumin [Mass/Vol] 31.8 % Normal 12-20-2019 [facility] (80097) Comment: Performed By: #### IVAN GALLARDO PA ####[place] [address] [place], [place] [phone] Alpha 1 Globulin 8.2 >0 % Normal 12-20-2019 [facility] (31071) Comment: Performed By: #### UIVAN SAUCEDO PA ####[facility] hospitalandStock[place], [place] [phone] Alpha 2 Globulin 13.7 % Normal 12-20-2019 [facility] (25218) Comment: Performed By: #### UIVAN SAUCEDO PA ####[place] [address]C[place], [place] [phone] Beta Globulin 25.2 % Normal 12-20-2019 [facility] (55161) Comment: Performed By: #### UIVAN SAUCEDO PA ####[facility], [place] [phone] Gamma Globulin 21.1 % Normal 12-20-2019 [facility] (80321) Comment: Performed By: #### IVAN GALLARDO ####[place] [address] [place], [place] [phone] Interpretation SEE COMMENT Normal 12-20-2019 [facility] (58679) Comment: Result Comment: No definitiv e M protein is identified on protein electrophoresis. Performed By: #### IVAN GALLARDO ####[address] [place], [place] [phone] Protein (U) [Mass/Vol] 4 0-20 mg/dL Normal 020 [facility] (08124) Comment: Performed By: #### IVAN GALLARDO ####[address] [place], [place] [phone] Staff Review Reviewed by [place] Normal 12-20-19 20 [facility] Kelby Gordon, PhD Cheryl carney (48079) (32982) Comment: Performed By: #### IVAN GALLARDO ####[address] Av[address], [place] [phone] monoclonal prot ur on 2019-12-20 Protein No M protein is No M protein is Normal 12-20-19 [place] [Mass/Vol] identified. identified. [facility]ini [facility] (71499) Comment: Performed By: #### IVAN GALLARDO ####[place] [address] [place], [place] [phone] UMPA Staff Review Reviewed by Luis Armando Normal [facility] Kelby Gordon, PhD Cheryl carney (60266) (71855) Comment: Performed By: #### IVAN GALLARDO PA ####[place] [address] [place], [place] [phone] monclnl protein, ser on 2019-12-20 K/L Ratio, Serum 1.40 0.26-1.65 Normal 12-20-2019 [facility] (14199) Comment: Performed By: #### B2M, TSH, CBCDIF, SEPG, SERMPA ####[facility] [address] [place], [place] [phone] Theba, Free, Serum 35.6 3.30-19.40 mg/L High 12-20-2019 [facility] (21127) Comment: Result Comment: Test perform ed by an immunoturbidimetric assay on Optilite instrument from Binding [facility] . Immunoglobulin free light chain assay results should be interpreted in con junction with other tests and in correlation with clinical picture. Performed By: #### B2M, TSH, CBCDIF, SEPG, SERMPA ####[facility] [place], [place] [phone] Lambda, Free, Serum 25.4 5.7-26.3 mg/L Normal 12-20-2019 [facility] (95902) Comment: Result Comment: Test perform ed by an immunoturbidimetric assay on Optilite instrument from [employer] [facility] . Immunoglobulin free light chain assay results should be interpreted in con junction with other tests and in correlation with clinical picture. Performed By: #### B2M, TSH, CBCDIF, SEPG, SERMPA ####[facility] [address] [place], [place] [phone] MPA Interpretation SEE COMMENT Normal 0 [facility] (45342) Comment: Result Comment: Poorly defin ed region of restricted mobility in the lambda cristofer. Pattern is less well defined or fainter than typically seen in monoclonal gammopathy. This could represent either an atyp ical presentation of polyclo nal immunoglobulins or the presence of a low level lambda containing monoclonal gammopathy. If clinically indicated, uri ne monoclonal protein analysis and serum free light chain measurements are recommended to evaluate further for monoclonal gammopathy. Clinical correlation is necessary. Performed By: #### B2M, TSH, CBCDIF, SEPG, SERMPA ####[facility] [address] [place]and[place], [place] [phone] MPA Serum IgA 244 78-391 mg/dL Normal 12-20-2019 [facility] (14824) Comment: Performed By: #### B2M, TSH, CBCDIF, SEPG, SERMPA ####[facility] [place], [place] [phone] MPA Serum IgG 0684 136-9966 mg/dL Normal 12-20-2019 [facility] (45161) Comment: Performed By: #### B2M, TSH, CBCDIF, SEPG, SERMPA ####[facility] [place], [place] [phone] MPA Serum IgM 59 53-334 mg/dL Normal 12-20-2019 [facility] (50468) Comment: Performed By: #### B2M, TSH, CBCDIF, SEPG, SERMPA ####[place] [address] [place], [place] [phone] Protein A poorly No M protein is Critically 12-20-2019 Cl elvi [Mass/Vol] defined region identified. abnormal Cl inic of restricted Clevel and mobility is (19837) present that may represent an M protein. Comment: Performed By: #### B2M, TSH, CBCDIF, SEPG, SERMPA ####[place] [address] [place], [place] [phone] Staff Review Reviewed by Luis Armando Normal 12-20-19 20 [facility] Kelby Gordon, PhD Cheryl carney (75880) (41174) Comment: Performed By: #### B2M, TSH, CBCDIF, SEPG, SERMPA ####[facility] [place], [place] [phone] comp metabolic panel on 2019-12-20 Albumin [Mass/Vol] 4.2 3.9-4.9 g/dL Normal 12-20-2019 [facility] (70852) ALP [Catalytic 62 38-113 U/L Normal 12-20-2019 [facility] activity/Vol] [facility] (34705) ALT [Catalytic 11 10-54 U/L Normal 12-20-2019 [facility] activity/Vol] Clevel and (67071) Anion gap 6 9-18 mmol/L Low 12-20-2019 [facility] [Moles/Vol] [facility] (94328[facility] AST [Catalytic 16 14-40 U/L Normal 12-20-2019 [facility] activity/Vol] [facility] and (96348) Bilirubin [Mass/Vol] 0.4 0.2-1.3 mg/dL Normal 0 [facility] (36286) Calcium [Mass/Vol] 9.6 8.5-10.2 mg/dL Normal 12-20-2019 [facility] (34113) Chloride [Moles/Vol] 101 97-105 mmol/L Normal 0 [facility] (55371) CO2 [Moles/Vol] 30 22-30 mmol/L Normal 12-20-2019 [facility] (33753) Creatinine 0.89 0.73-1.22 mg/dL Normal 12-20-2019 [facility] [Mass/Vol] [place] (97465) eGFR- Amer. >60 Normal 12-20-2019 [facility] (98401) GFR/1.73 sq M >60 mL/min/{1.73_m Normal 12-20-2019 [facility] predicted among 2} [facility] (91597) non-blacks MDRD (S/P/Bld) [Vol rate/Area] Comment: Result Comment: eGFR (Estima chilango GFR) Units of measure: mL/min/1.73 meters squared eGFR is derived from the ree xpressed MDRD Study equation using the following parameters: serum creatinine, age, gender and race. The creatinine assay has been calibrated to be traceable to [employer]. An eGFR <60 mL/min/1.73m2 fo r >3 months is consistent with chronic kidney disease. Refer to KDOQI guidelines for clinical interpretation. In patients with unstable re nal function, e.g. those with acute kidney injury, the eGFR may not accurately reflect actual GFR. Glucose [Mass/Vol] 105 74-99 mg/dL High 12-20-2019 [facility] (18827) Comment: Result Comment: The [place] [employer] (ADA) provides guidance for cutoff values for fasting glucose and random glucose. The ADA defines fasting as no caloric intake for at least 8 hours. Fas ting plasma glucose results between 100 to 125 mg/dL indicate increased risk for diabetes (prediabetes). Fasting plasma glucose resul ts greater than or equal to 126 mg/dL meet the criteria for diagnosis of diabetes. In the absence of unequivocal hyperglycemia, results should be confirmed by repeat testing. In a patient with classic s ymptoms of hyperglycemia or hyperglycemic crisis, random plasma glucose results greater than or equal to 200 mg/dL meet the criteria for diagnosis of diabetes. Reference: Standards of [facility] Care in Diabetes 2016, [place] [employer] Association. Diabetes Care. 2016.39(Suppl 1). Potassium [Moles/Vol] 3.6 3.7-5.1 mmol/L Low 12-20-19 20 [facility] (80961) Protein [Mass/Vol] 6.9 6.3-8.0 g/dL Normal 12-20-2019 [facility] (08046) Sodium [Moles/Vol] 137 136-144 mmol/L Normal 12-20-2019 [facility] (91440) Urea nitrogen [Mass/Vol] 15 9-24 mg/dL Normal 12-20 [facility] (48534) cbc and differential on 2019-12-20 Abs Baso Duplicate request <0.11 Normal 12-20-2019 [facility] (25834) Comment: Performed By: #### B2M, TSH, CBCDIF, SEPG, SERMPA ####[facility] [address] [place], [place] [phone] Abs Walker Duplicate request <0.87 Normal 12-20-2019 [facility] (75251) Comment: Performed By: #### B2M, TSH, CBCDIF, SEPG, SERMPA ####[facility] [address] [place], [place] [phone] Abs Neut Duplicate request 1.45-7.50 Normal 12-20-2019 [facility] (99642) Comment: Performed By: #### B2M, TSH, CBCDIF, SEPG, SERMPA ####[facility] [address] [place]and, [place] [phone] Basophils/100 WBC (Bld) Duplicate request Normal 12-20-2019 [facility] (56290) Comment: Performed By: #### B2M, TSH, CBCDIF, SEPG, SERMPA ####[facility] [address] [place], [place] [phone] Comment Duplicate request Normal 12-20-2019 [facility] (39911) Comment: Performed By: #### B2M, TSH, CBCDIF, SEPG, SERMPA ####[facility] [address] [place], [place] [phone] Eosinophils (Bld) Duplicate request <0.46 Normal 11-29 [facility] [#/Vol] [place] (91527) Comment: Performed By: #### B2M, TSH, CBCDIF, SEPG, SERMPA ####[facility] [place], [place] [phone] Eosinophils/100 WBC (Bld) Duplicate request Normal 12-20-2019 [facility] (04324) Comment: Performed By: #### B2M, TSH, CBCDIF, SEPG, SERMPA ####[facility] [address] [place]and[place] [phone] Erythrocyte Duplicate request 11.5-15.0 Normal 12-20-2019 [facility] distribution width [facility] (89490) (RBC) [Ratio] Comment: Performed By: #### B2M, TSH, CBCDIF, SEPG, SERMPA ####[facility] [address] [place]and[place] [phone] Hematocrit (Bld) Duplicate request 39.0-51.0 Normal 12-20 [facility] [Volume fraction] Cl elvi (79598) Comment: Performed By: #### B2M, TSH, CBCDIF, SEPG, SERMPA ####[facility] [address] [place], [place] [phone] Hemoglobin (Bld) Duplicate request 13.0-17.0 Normal 12-20 [facility] [Mass/Vol] [place] (60456) Comment: Performed By: #### B2M, TSH, CBCDIF, SEPG, SERMPA ####[facility] [place] [phone] Lymphocytes (Bld) Duplicate request 1.00-4.00 Normal 11-29 [facility] [#/Vol] [place] (87645) Comment: Performed By: #### B2M, TSH, CBCDIF, SEPG, SERMPA ####[facility] [place], [place] [phone] Lymphocytes/100 WBC (Bld) Duplicate request Normal 12-20-2019 [facility] (92239) Comment: Performed By: #### B2M, TSH, CBCDIF, SEPG, SERMPA ####[facility] [place] [phone] MCH (RBC) [Entitic Duplicate request 26.0-34.0 Normal [facility]] [place] (92998) Comment: Performed By: #### B2M, TSH, CBCDIF, SEPG, SERMPA ####[facility] [place] [phone] MCHC (RBC) Duplicate request 30.5-36.0 Normal 12-20-2019 [facility] [Mass/Vol] [place] (46044) Comment: Performed By: #### B2M, TSH, CBCDIF, SEPG, SERMPA ####[facility] [address] [place], [place] [phone] MCV (RBC) [Entitic Duplicate request 80.0-100.0 Normal [facility] (82204) Comment: Performed By: #### B2M, TSH, CBCDIF, SEPG, SERMPA ####[facility] [address] [place], [place] [phone] Monocytes/100 WBC (Bld) Duplicate request Normal 12-20-2019 [facility] (45306) Comment: Performed By: #### B2M, TSH, CBCDIF, SEPG, SERMPA ####[facility] [address] [place], [place] [phone] Neutrophils/100 WBC (Bld) Duplicate request Normal 12-20-2019 [facility] (10413) Comment: Performed By: #### B2M, TSH, CBCDIF, SEPG, SERMPA ####[facility] [place], [place] [phone] Platelet mean Duplicate request 9.0-12.7 Normal 12-20-19 [facility] volume (Bld) Clevela nd (80492) [Entitic vol] Comment: Performed By: #### B2M, TSH, CBCDIF, SEPG, SERMPA ####[facility] [address] [place], [place] [phone] Platelets (Bld) Duplicate request 150-400 Normal 2019 [facility] [#/Vol] [place] (38571) Comment: Performed By: #### B2M, TSH, CBCDIF, SEPG, SERMPA ####[facility] [address] [place], [place] [phone] RBC (Bld) [#/Vol] Duplicate request 4.20-6.00 Normal 11-29 [facility] (09309) Comment: Performed By: #### B2M, TSH, CBCDIF, SEPG, SERMPA ####[facility] [address] [place], [place] [phone] Recheck Duplicate request Normal 12-20-2019 [facility] (51827) Comment: Performed By: #### B2M, TSH, CBCDIF, SEPG, SERMPA ####[facility] [address] [place], [place] [phone] Review Duplicate request Normal 12-20-2019 [facility] (99951) Comment: Performed By: #### B2M, TSH, CBCDIF, SEPG, SERMPA ####[facility] [facility] [address] [place], [place] [phone] WBC (Bld) [#/Vol] Duplicate request 3.70-11.00 Normal [facility] ([id number]) Comment: Result Comment: Account Cred ited Performed By: #### B2M, TSH, CBCDIF, SEPG, SERMPA ####[facility] [address] [place], [place] [phone] b2 microglobulin on 2019-12-20 Globulin (S) [Mass/Vol] 2.9 0.8-2.2 mg/L High 2019 [facility] ([id number]) Comment: Performed By: #### B2M, TSH, CBCDIF, SEPG, SERMPA ####[facility] [address] [place], [place] [phone] us kidney/bladder o n 2019-12-10 US KIDNEY/BLADDER * * *Final Report* * * Normal 12-10-2019 [facility] DATE OF EXAM: Dec 10 2019 [facility] / ([id number]) PROCEDURE REASON: U/S Renal Stage Chronic Kidney Disease Sta ge 2 * * * * Physician Interpretation * * * * EXAMINATION: RENAL ULTRASOUND CLINICAL HISTORY: Chronic renal disease TECHNIQUE: Sonography of the kidneys and urinary bladder was performed. Images were obtained and stored in a permanent archive. MQ: UR_1 COMPARISON: Comparison is made to prior ultrasound dated 9 2017 RESULT: Right Kidney: -Renal length: 10.9 cm -Parenchyma: Normal parenchymal echogenicity. Normal parench ymal thickness. -Collecting system: No hydronephrosis. -Calculus: No echogenic, shadowing calculus. -Lesion: None. Left Kidney: -Renal length: 12.2 cm -Parenchyma: Normal parenchymal echogenicity. Normal parench ymal thickness. -Collecting system: Mild fullness of the intrarenal infundib alex is chronic and unchanged from 2018 -Calculus: No echogenic, shadowing calculus. -Lesion: None. Bladder: Pre and post void evaluation of the bladder was per formed. There are no extrinsic or intraluminal abnormalities noted w ithin the limits of the examination. Pre void volume measures 667 cm3 with a large postvoid residual measuring 479.7 cm3. There is some mild in traluminal layering debris. Free fluid: None IMPRESSION: Stable mild ectasia of the left renal infundibula. No solid masses Urinary bladder with intraluminal debris and large post void residual. 3Rd Pressman: TERI Transcribe Date/Time: Dec 10 2019 3:32P Dictated by : JESSIKA LUGO MD This examination was interpreted and the report reviewed and electronically signed by: JESSIKA LUGO MD on Dec 10 2019 3:36PM EST [id number] progress on 2019-11 PROGRESS HNO ID: [id number] Normal 12-10-2019 [facility] Author: Madhavi Franks (Tech) Tracy ([id number]) Service: ? Author Type: Software Engineer Developer Type: Progress Notes Filed: 12/10/2019 11:23 AM Note Text: Radiology Service Progress Note PATIENT NAME: Aaron Donato DATE OF SERVICE: December 10, 2019 TIME: 11:22 AM PATIENT IDENTITY VERIFICATION COMPLETED USING TWO (2) IDENTI FIERS: Name and Date of confirmed by patient verbally. PATIENT GENDER DATA: Male PATIENT RELEVANT IMPLANT DATA REVIEWED: Not Applicable RADIOLOGY DEPARTMENT: Ultrasound PERIPHERAL IV DATA: Not applicable SIGNED BY: Madhavi Franks December 10, 2019 11:22 AM zinc on 2019-09-14 Zinc 57 55-150 ug/dL Normal 09-14-2019 [facility] ([id number]) Comment: Result Comment: This test wa s developed and its performance characteristics determined by [facility]'s [facility] ([facility]). It has not been cleared or a pproved by the FDA. [facility] is regulated under CLIA as qualified to perform high complexity testing. This test is used for clinic al purposes. It should not be regarded as investigational or for research. Performed By: #### CMP, CERU LO, CK, TSH, COPPER, ZINC ####[facility] [address] [place], [place] [phone]#### MYOSPL ####[facility] [address] [place], [place] [phone] tsh on 2019-09-14 TSH Qn 102.000 0.400-5.500 uU/mL High 09-14-2019 [facility] ([id number]) Comment: Performed By: #### CMP, CERU LO, CK, TSH, COPPER, ZINC ####[facility] [address] [place], [place] [phone]#### MYOSPL ####[facility] [address] [place], [place] [phone] progress on 2019-08 PROGRESS HNO ID: [id number] Normal 09-14-2019 [facility] Author: Jose Arrington Tracy Service: ? ([id number]) Author Type: Physician Type: Progress Notes Filed: 09/16/2019 6:33 PM Note Text: [facility] New Patient Visit Note Consultation requested by Dr. Colten Cameron for an opinion r egarding CK elevation. My final recommendations will be communicated mary k to the requesting physician by way of shared Medical record or cedric er to requesting physician via US mail. History of Present Illness: Mr. Donato is a pleasant 64 year old right-handed Caucasia n male with a history of CKD stage 3, h/o rhabdomyolysis on crestor, BPH, macrocytic anemia, hypothyroidism, presenting for evaluation of CK elev ation. About a year and a half ago, he had a right inguinal hernia surgery following which he noticed that he was slowly becoming weak in the right leg and was also having leg swelling from the hip down. This also occurs on the left side but not to the same extent. This was interm ittent and he would notice that with exertion his swelling and weakness wo uld be worse and this would become better with rest (sleep for 4 hours). 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 No injuries. There is some numbness in his feet (soles) as well and this has been going on for about the same time as the above. No radicular pain. He says he was started on crestor in 03/2019 and took it for 2 months. When he was started on it, the CK was being monitored and al though he had no new symptoms his CK level was elevated - they were checki ng it every 2 weeks. At the 2 month irving, the level was high enough to war rant stopping the medication. He was then admitted to the hospital in May 2019 - he had some kidney dysfunction and was [facility] with [facility]Fs [facility]. They also stopped the crestor. Denies symptoms of dark/bloody urine, m uscle aches and pains. He was discharged when the level was down to 2068 . Since then he has had monitoring of CK levels every [address] level having been done about a week ago. Throughout the level has been up and down but has stayed between 2000 and 3000, the highest level was about a week ago. He denies feeling different when the levels are hi gh or low. His main symptom continued to be fatigue on exertion especia lly in the right leg. He denies noticing any recent muscle bulk loss. There is no muscle pain, no cramps or muscle twitching. No symptoms in hands and no oculobulbar symptoms. No autonom ic symptoms. No consitutional symptoms. No unintentional weight loss. He is able to climb stairs without difficulty and can cover about a 1/2 acre without needing rest. Imbalance is not an issue. He is also not falling. He has not noticed any significant change in the color of hi s urine including dark red/cola colored urine changes, especially af ter significant exertion/physical activity. The patient does not report any other symptoms referrable to neurological focality or neuromuscular deficits. Prior workup: A1c not done Copper, zinc, ceruloplasmin not done Cr 1.40 AST 117 (baseline around 60) TSH 122 (elevated, 0.4-5.5 normal limits) B12 659 MMA 160 No M protein on electrophoresis Free kappa chains 28.2 (3.30-19.4) Free lambda: 18.6 normal K/L ratio: 1.52, no M protein identified RBC folate normal LDH 845 (135-225) CK 4309 on 09/04/2019 PAST MEDICAL HISTORY Diagnosis Date - Anemia 08/24/2017 - Bronchitis with airway obstruction (HCC) 08/24/2017 - CKD (chronic kidney disease) stage 3, GFR 30-59 ml/min (HC C) 02/01/2018 - COPD (chronic obstructive pulmonary disease) (HCC) - Inguinal hernia 12/29/2017 Added automatically from request for surgery [id number] - Pure hypercholesterolemia 01/01/2018 - Tobacco use disorder, continuous 08/24/2017 - Urine retention 02/06/2018 PAST SURGICAL HISTORY Procedure Laterality Date - COLONOSCOP W/ OR W/O BRSH SPEC 11/01/2017 Colonoscopy - small adenomatous polyp-5 year follow-up - EXPLR PATELLAR TENDON Right 2005 Dr. Eller. - PAST SURGICAL HISTORY OF Bilateral 1980 foot surgery - REPAIR ING HERNIA,5+Y/O,REDUCIBL 01/04/2018 Hernia repair, inguinal, right w/mesh Freeman - ROTATOR CUFF REPAIR Right 11/2013 Dr. Eller Medications: Current Outpatient Medications: levothyroxine (SYNTHROID) 100 mcg tablet TAKE 1 TABLET BY [facility] EVERY DAY SEPERATE FROM FOOD, NOT WITH DAIRY OR MULTIVITAMINS cholecalciferol (VITAMIN D-3) 2,000 unit tablet Take 2,000 U nits by mouth once daily. tamsulosin ER (FLOMAX) 0.4 mg cap TAKE 1 CAPSULE BY MOUTH DA CORINA AT BEDTIME. No current facility-administered medications for this visit. Allergies: See updated allergies documented below. 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 Denies heavy dr inking in the past. Drug use: No Sexual activity: Not on file Lifestyle Physical activity: Days per week: Not on file Minutes per session: Not on file Stress: Not on file Relationships Social connections: Talks on phone: Not on file Gets together: Not on file Attends samaritan service: Not on file Active member of club or organization: Not on file Attends meetings of clubs or organizations: Not on file Relationship status: Not on file Intimate partner violence: Fear of current or ex partner: Not on file Emotionally abused: Not on file Physically abused: Not on file Forced sexual activity: Not on file Other Topics Concerns: Not on file Social History Narrative Not on file FAMILY HISTORY Problem Relation Age of Onset - Heart Failure Mother - Kidney Disease Mother - Diabetes Mother - COPD Father - Cancer Father head and neck - Obesity Sister - Coronary Artery Disease Brother MS - None Brother - None Brother - None Brother No history of neuromuscular disease. ROS: CONSTITUTIONAL: No reported fevers, chills, night sweats, or significant unintentional weight loss. EYES: No visual changes indicated. No eye pain or orbital sw elling reported. HEENT: No hearing changes or vertiginous symptoms indicated. No history of nose bleeds reported. RESPIRATORY: No reported cough, sputum, wheezing and dyspnea . CARDIOVASCULAR: Negative for significant chest pain, and pal pitations per report. GI: Negative for significant abdominal discomfort, blood in stools or black stools reported. No recent reported change in bowel noonan bits. : No reported history of incontinence. No dark/cola colore d urine reported. MUSCLOSKELETAL: No history of significant joint pain or swel ling, or myalgias reported. SKIN: Negative for pertinent lesions, rash, and itching per report. HEMATOLOGY/ONCOLOGY: Negative for reported prolonged bleedin g, bruising easily, and swollen nodes. ENDOCRINE: Negative for reported significant cold or heat in tolerance, no reported goitrous neck swelling or polydipsia PSYCH: No reported depression or anxiety symptoms. No report ed SI or HI. NEURO: Per HPI above. No reported sleep disturbance. Vital Signs: BP 126/79 (BP Site: Right Arm, BP Position: Sitting, BP Cuff Size: Large Adult) Pulse 69 Resp 14 Ht 173.4 cm (5' 8.25) Wt 93 kg (205 lb) SpO2 96% BMI 30.94 kg/m? General Medical Exam: General: Clinically well-appearing, comfortable. Eyes/ENT: s ee cranial nerve examination. Neck: No masses appreciated. Adequate ran ge of motion without tenderness. Respiratory: Clear to auscultation, good air entry bilaterally. Cardiac/vascular: Regular rate and rhythm, no m urmur appreciated. GI: non-distended abdomen. Rectal examination d eferred. Back: Moderate range flexion and extension with no pain to p alpation. Extremities: No pertinent deformities, no significant edema, or skin discoloration. Skin: Skin color, texture, turgor normal. No pertinent rashes or lesions. Neurologic Exam: Mental status including: orientation to time, place, person normal. CRANIAL NERVES: II: No visual field defects. III-IV-: Pupils equal round a nd reactive to light. Normal conjugate, extra-ocular eye movements in al l directions of gaze. No nystagmus. No ptosis prior to or post sustained upgaze. V: Normal facial sensation. VII: Normal facial symmetry and mov ements. VIII: Normal hearing and vestibular function. IX-X: Normal p alatal movement. XI: Normal shoulder shrug and head rotation. XII: Normal tongue strength and range of motion, no deviation or fascicu lation. Speech is not dysarthric. MOTOR: No appreciable atrophy, fasciculations or abnormal movements . No pronator drift. No scapular winging. Tone is within normal limits. Strength/Power (MRC grade- out of 5): Neck Flexion 5 Neck Extension 5 Upper extremity power, when graded out of 5, revealed: ?? ? Right Left ?? shoulder abduction 5 5 ? shoulder adduction 5 5 shoulder internal rotation 5 5 shoulder external rotation 5 5 ? elbow extension 5 5 ? elbow flexion 5 5 ? forearm supination 5 5 forearm pronation 5 5 ? wrist extension 5 5 ? wrist flexion 5 5 ? finger extension 5 5 ? deep finger flexion (D2-3) 5 5 deep finger flexion (D4-5) 5 5 ? thumb flexion with FPL 5 5 ? thumb abduction with APB 5 5 ? finger abduction 5 5 ? Lower extremity strength, when reported the same way, showed :? ? Right Left ?? hip flexion 5 5 ? hip extension 5 5 ? hip adduction 5 5 hip abduction 5 5 ? knee flexion 5 5 ? knee extension 5 5 ? ankle dorsiflexion 5 5 ? ankle plantar flexion 5 5 ? foot inversion 5 5 ? foot eversion 5 5 ? toe extension 5 5 ? toe flexion 5 5 ? Able to rise from a chair without using arms. Deep Tendon Reflexes (DTRs):? ? ? Right Left ?? Biceps 2+ 2+ ?brisk Triceps 2+ 2+ ?brisk Brachioradialis 2+ 2+ ?brisk Patellar 2+ 2+ ?brisk Achilles 0 0 ? Vertical spread: No Crossed adductors: No Peña's sign: No Tromner's sign: No Plantar responses: flexor Clonus: No SENSORY: Reduced sensation to PP and temperature (about 50% of normal) up to just below knees b/l. Vibration barely there at toes but normal at ankles and knees. Proprioception normal. Romberg's sign abse nt. COORDINATION/GAIT: Normal finger-to- nose-finger and heel-to -tillman bilaterally. Intact rapid alternating movements bilaterally. Gait narrow-based and stable. Tandem and stressed gait intact. OUTSIDE RECORDS: The patient provided outside medical record s, which were reviewed during the course of the visit and relevant details are included above in HPI. INTERNAL RECORDS: The patient's electronic medical record wa s reviewed. IMPRESSION: 64 year old right-handed male with a history of CK D stage 3, h/o rhabdomyolysis on crestor, BPH, macrocytic anemia, hypothyro idism, presenting for evaluation of CK elevation. The patient state s that he has had intermittent right leg swelling and fatigue in both legs since his right inguinal hernia surgery a year and a half ago. Resting for a few hours helps alleviate symptoms. He denies persistent or prog ressive weakness or myalgias/cramps/fasciculations. About 4-5 months ago, he was started on crestor for newly-diagnosed hyperlipidemia. As pe r his report, his doctors aniyah a baseline level of CK and followed the CK level [id number] while he was on crestor and this was slowly trending up unti l 2 months later it was significantly elevated (>4000) and he had worse arcenio kidney function during this time but no additional symptoms. He was treated with IVFs, crestor was stopped, and when his kidney function retu rned to baseline and his CK had trended down to 2000 he was discharg ed. Since then he has continued to have CK monitoring done every 2 weeks an d it has ranged between 6268-6960 with the highest value a week ago a s noted above in HPI. He denies any new symptoms and there are no myalgias or muscle weakness reported currently that is any different from sympt oms about 1.5 years ago. Neurologic exam shows normal muscle strength. 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 He d enies neuropathic pain. Labs done about a week ago showed elevated TSH, normal B12 and MMA, and normal immunofixation (except for isolated elevation in free kappa chains but normal lambda and K/L ratio). We need some further information regarding baseline muscle e nzymes as well as additional workup to investigate the cause of his CK-emia . At this time, it appears that the cause could be multifactorial (hyp othyroidism, significant physical activity, recent use of statin). It is also possible that as in some cases the CK may just take more time to tren d down after exposure to myotoxic med like statin. However, given that he has had a trending up of the CK level, we would like to check a myosit is panel (including HMCoAR Abs) to rule out an additional underlying cause of the persistent CK elevation. We also need additional labs to inv estigate the cause of his neuropathy. PLAN/RECOMMENDATIONS: - The impression above as well as the plan as outlined below were extensively discussed with the patient (in the company of hi s brother) who voiced understanding. All questions were answered to their s tated satisfaction. - Will pursue the following w/u/studies including those for secondary/potentially treatable underlying conditions: - CK - Copper, ceruloplasmin, Zinc - TSH - Myositis panel, Anti HMGCR Abs - CMP - We will plan additional workup based on the results of the labs above. - When available, results of the above investigations and po ssible further recommendations will be communicated to the patient via tele phone/Mediushart. Patient to call office if not contacted after expected testi ng turnaround time. To aid with communication, patients (and primary care physic ians) can sign up for [employer] (or [employer]), which allows online appointme nt scheduling, transmission of labs results and chart notes, and secure kaylan il communication. To establish either account, visit [email or web address]. Deisy Juarez MD Neuromuscular Medicine (NM) Fellow In the service of Dr Arrington (NM Staff) [facility] STAFF: TEACHING PHYSICIAN NOTE OF PERSONAL INVOLVEMENT IN CARE I have reviewed the progress note obtained and documented by Dr. Juarez and I have participated in the longoria components. I have discussed the case and management of the patient's care with . I agree with the assessment and plan as documented with changes to the assessment and pl an sections of note italicized. It seems he has persistent high CK after this was being regu larly checked after starting statin. Had CK per verbal report > 4000 and in local hospital and tr eated as rhabdomyolysis w/ IVFs and then D/C'd. He has no weakness on exam. He is still working and other th an fatigue after long hours of work no motor impairment. We will recheck labs, do some screening for ? PN based on ex am of Dr. Juarez and obtain OSH records to better ascertain the labs and thei r trends before deciding on further work up. Explained at length to pt and brother. Both expressed unders tanding and agreement. Jose Arrington MD Referring provider: Colten Cameron MD [address] [facility] [address] [facility] [address] Primary care provider: Colten Cameron MD [address] [facility] [address] [place] [phone] myositis panel on Dana-1 Antibody, IgG 32 0-40 AU/mL Normal 09-14-2019 [facility] ([id number]) Comment: Result Comment: (NOTE) INTERPRETIVE INFORMATION: Dana -1 Antibody, IgG 29 AU/mL or less.........Neg ative 30-40 AU/mL..............Equ ivocal 41 AU/mL or greater......Pos itive Performed By: #### CMP, CERU LO, CK, TSH, COPPER, ZINC ####[address] [place] [phone]#### MYOSPL ####[facility] [address] [place], [place] [phone] EJ Antibody Negative Negative Normal 09-14-2019 [facility] ([id number]) Comment: Performed By: #### CMP, CERU LO, CK, TSH, COPPER, ZINC ####[address] [place] [place] [phone]#### MYOSPL ####[facility] [address] [place] [phone] MDA5 Antibody Negative Negative Normal 09-14-2019 [facility] ([id number]) Comment: Performed By: #### CMP, CERU LO, CK, TSH, COPPER, ZINC ####[place] [phone]#### MYOSPL ####[facility] [address] [place], [place] [phone] Mi-2 Antibody Negative Negative Normal 09-14-2019 [facility] ([id number]) Comment: Performed By: #### CMP, CERU LO, CK, TSH, COPPER, ZINC ####[place] [phone]#### MYOSPL ####[facility] [address] [place], [place] [phone] Myositis Interp SEE NOTE Normal 09-14-2019 [facility] ([id number]) Comment: Result Comment: (NOTE) INTERPRETIVE INFORMATION: De rmatomyositis and Polymyositis Panel If present, myositis-specifi c antibodies (MSA) are specific for myositis, and may be useful in establishing diagnosis as well as prognosis. MSAs are generall y regarded as mutually exclusive with rare exceptions; the occurre nce of two or more MSAs should be carefully evaluated in the c ontext of patient's clinical presentation. Myositis-assoc iated antibodies (MAA) may be found in patients with CTD, including overlap syndromes, and are generally not specific for myositis. T he following table will help in identifying the association of any antibodies found as either MSAs or Aneesh. Antibody Specificity . . . . . . . . . . . . MSA . . . . MAA Dana-1 (histidyl-tRNA syntheta se) Ab, IgG . . X PL-12 (alanyl-tRNA synthetas e) Antibody . . X PL-7 (threonyl-tRNA syntheta se) Antibody . . X EJ (glycyl-tRNA synthetase) Antibody . . . . X OJ (isoleucyl-tRNA synthetas e) Antibody . . X SRP (Signal Recognition Part icle) Ab . . . . X Mi-2 (nuclear helicase prote in) Antibody . . X P155/140 Antibody . . . . . . . . . . . . . X TIF-1 gamma (155 kDA) Ab . . . . . . . . . X SAE1 (SUMO activating enzyme ) Ab . . . . . . X MDA5 (CADM-140) Ab . . . . . . . . . . . . . X NXP2 (Nuclear matrix protein -2) Ab . . . . . X Test developed and character istics determined by [employer]. See Compliance Statement D: [employer]/CS Performed By: #### CMP, CERU LO, CK, TSH, COPPER, ZINC ####[facility] [address] [place], [place] [phone]#### MYOSPL ####[address] [place], [place] [phone] NXP-2 Antibody Negative Negative Normal 09-14-2019 [facility] ([id number]) Comment: Performed By: #### CMP, CERU LO, CK, TSH, COPPER, ZINC ####[facility] [address] [place], [place] [phone]#### MYOSPL ####[address] [place], [place] [phone] OJ Antibody Negative Negative Normal 09-14-2019 [facility] ([id number]) Comment: Performed By: #### CMP, CERU LO, CK, TSH, COPPER, ZINC ####[place] [address] [place], [place] [phone]#### MYOSPL ####[facility] [address] [place], [place] [phone] P155/140 Antibody Negative Negative Normal 09-14-2019 [facility] System ([id number]) Comment: Result Comment: (NOTE) Performed by [facility] , [address] [place] [address] [id number] [email or web address], Magen Lu do, MD, Lab. Director Performed By: #### CMP, CERU LO, CK, TSH, COPPER, ZINC ####[address] [phone]#### MYOSPL ####[facility] Qxvhihqf[address]jb[address] [place], [place] [phone] PL-12 Antibody Negative Negative Normal 09-14-2019 [facility] ([id number]) Comment: Performed By: #### CMP, CERU LO, CK, TSH, COPPER, ZINC ####[address] [phone]#### MYOSPL ####[facility] Xzcouoelpmhf[address] [place], [place] [phone] PL-7 Antibody Negative Negative Normal 09-14-2019 [facility] ([id number]) Comment: Performed By: #### CMP, CERU LO, CK, TSH, COPPER, ZINC ####[address] [phone]#### MYOSPL ####[facility] Zmhalzuqlpww[address] [place], [place] [phone] SAE1 Antibody Negative Negative Normal 09-14-2019 [facility] ([id number]) Comment: Performed By: #### CMP, CERU LO, CK, TSH, COPPER, ZINC ####[facility] [address] [place], [place] [phone]#### MYOSPL ####[facility] Wtwdkqrgbgwe[address] [place], [place] [phone] SRP Antibody Negative Negative Normal 09-14-2019 [facility] ([id number]) Comment: Performed By: #### CMP, CERU LO, CK, TSH, COPPER, ZINC ####[place] [address] [place], [place] [phone]#### MYOSPL ####[facility] Llpmvkfnjqbv463 [place], [place] [phone] TIF-1 gamma Antibody Negative Negative Normal 9 [facility] ([id number]) Comment: Performed By: #### CMP, CERU LO, CK, TSH, COPPER, ZINC ####[address] [phone]#### MYOSPL ####[facility] Jejkbeqpvyfb[address] [place], [place] [phone] copper on 2019-08-28 8 Copper 119 70-140 ug/dL Normal 09-14-2019 [facility] ([id number]) Comment: Result Comment: This test wa s developed and its performance characteristics determined by [facility]'s [facility] ( [facility]). It has not been cleared or a pproved by the FDA. [facility] is regulated under CLIA as qualified to perform high complexity testing. This test is used for clinic al purposes. It should not be regarded as investigational or for research. Performed By: #### CMP, CERU LO, CK, TSH, COPPER, ZINC ####[facility] [address] [place], [place] [phone]#### MYOSPL ####[facility] Dxmihiriznfd[address] [place], [place] [phone] comp metabolic panel on 2019-09-14 Albumin [Mass/Vol] 5.0 3.9-4.9 g/dL High 09-14-2019 [facility] ([id number]) Comment: Performed By: #### CMP, CERU LO, CK, TSH, COPPER, ZINC ####[address] [phone]#### MYOSPL ####[facility] Ygyug[address] [place], [place] [phone] ALP [Catalytic activity/Vol] 69 38-113 U/L Normal 1 [facility] ([id number]) Comment: Performed By: #### CMP, CERU LO, CK, TSH, COPPER, ZINC ####[address] [phone]#### MYOSPL ####[facility] Brujjurhp[address] [place], [place] [phone] ALT [Catalytic activity/Vol] 56 10-54 U/L High 1 [facility] ([id number]) Comment: Performed By: #### CMP, CERU LO, CK, TSH, COPPER, ZINC ####[address] [phone]#### MYOSPL ####[facility] Iqvacvcxmhci[address] [place], [place] [phone] Anion gap [Moles/Vol] 12 9-18 mmol/L Normal 09-14-20 [facility] (07497) Comment: Performed By: #### CMP, CERU LO, CK, TSH, COPPER, ZINC ####[address] [phone]#### MYOSPL ####[facility] Kalza[address] [place], [place] [phone] AST [Catalytic activity/Vol] 86 14-40 U/L High 1 [facility] (06018) Comment: Performed By: #### CMP, CERU LO, CK, TSH, COPPER, ZINC ####[facility] [address] [place], [place] [phone]#### MYOSPL ####[facility] Tfstupygabmj[address] [place], [place] [phone] Bilirubin [Mass/Vol] 0.3 0.2-1.3 mg/dL Normal 9 [facility] ([id number]) Comment: Performed By: #### CMP, CERU LO, CK, TSH, COPPER, ZINC ####[place] [address] [place], [place] [phone]#### MYOSPL ####[facility] Igiwlvnbtkxt[address] [place], [place] [phone] Calcium [Mass/Vol] 9.6 8.5-10.2 mg/dL Normal 09-14-2019 [facility] (14050) Comment: Performed By: #### CMP, CERU LO, CK, TSH, COPPER, ZINC ####[place] [address] [place], [place] [phone]#### MYOSPL ####[facility] V[address]jvcqlxdqr[address] [place], [place] [phone] Chloride [Moles/Vol] 97 97-105 mmol/L Normal 9 [facility] ([id number]) Comment: Performed By: #### CMP, CERU LO, CK, TSH, COPPER, ZINC ####[place] [address] [place], [place] [phone]#### MYOSPL ####[facility] [address] [place], [place] [phone] CO2 [Moles/Vol] 30 22-30 mmol/L Normal 09-14-2019 [facility] ([id number]) Comment: Performed By: #### CMP, CERU LO, CK, TSH, COPPER, ZINC ####[place] [address] [place], [place] [phone]#### MYOSPL ####[facility] [address] [place], [place] [phone] Creatinine [Mass/Vol] 1.53 0.73-1.22 mg/dL High 09-14-20 19 [facility] (54934) Comment: Performed By: #### CMP, CERU LO, CK, TSH, COPPER, ZINC ####[facility] [address], [place] [phone]#### MYOSPL ####[facility] [address] [place], [place] [phone] eGFR- Amer. 56 Normal 09-14-2019 [facility] ([id number]) Comment: Performed By: #### CMP, CERU LO, CK, TSH, COPPER, ZINC ####[facility] [address] [place], [place] [phone]#### MYOSPL ####[facility] [address]mz7[address] [place], [place] [phone] GFR/1.73 sq M predicted among 46 . Normal 09-14-2019 [facility] non-blacks MDRD (S/P/Bld) [Vol (36115) rate/Area] Comment: Result Comment: eGFR (Estima chilango GFR) Units of measure: mL/min/1.73 meters squared eGFR is derived from the ree xpressed MDRD Study equation using the following parameters: serum creatinine, age, gender and race. The creatinine assay has been calibrated to be traceable to IDMS. An eGFR <60 mL/min/1.73m2 fo r >3 months is consistent with chronic kidney disease. Refer to KDOQI guidelines for clinical interpretation. In patients with unstable re nal function, e.g. those with acute kidney injury, the eGFR may not accurately reflect actual GFR. Performed By: #### CMP, CERU LO, CK, TSH, COPPER, ZINC ####[facility] [address] [place], [place] [phone]#### MYOSPL ####[facility] [address] [place], [place] [phone] Glucose [Mass/Vol] 93 74-99 mg/dL Normal 09-14-2019 [facility] (14013) Comment: Result Comment: The [place] Diabetes Association (ADA) provides guidance for cutoff values for fasting glucose and random glucose. The ADA defines fasting as no caloric intake for at least 8 hours. Fas ting plasma glucose results between 100 to 125 mg/dL indicate increased risk for diabetes (prediabetes). Fasting plasma glucose resul ts greater than or equal to 126 mg/dL meet the criteria for diagnosis of diabetes. In the absence of unequivocal hyperglycemia, results should be confirmed by repeat testing. In a patient with classic s ymptoms of hyperglycemia or hyperglycemic crisis, random plasma glucose results greater than or equal to 200 mg/dL meet the criteria for diagnosis of diabetes. Reference: Standards of [facility] Care in Diabetes 2016, [place] Diabetes Association. Diabetes Care. 2016.39(Suppl 1). Performed By: #### CMP, CERU LO, CK, TSH, COPPER, ZINC ####[place] [phone]#### MYOSPL ####[facility] [address] [place], [place] [phone] Potassium [Moles/Vol] 4.3 3.7-5.1 mmol/L Normal 09-14-20 [facility] ([id number]) Comment: Performed By: #### CMP, CERU LO, CK, TSH, COPPER, ZINC ####[facility] [address] [place] [phone]#### MYOSPL ####[facility] [address] [place], [place] [phone] Protein [Mass/Vol] 8.1 6.3-8.0 g/dL High 09-14-2019 [facility] (15275) Comment: Performed By: #### CMP, CERU LO, CK, TSH, COPPER, ZINC ####[place] [phone]#### MYOSPL ####[facility] [address]zb[address]yg[address] [place], [place] [phone] Sodium [Moles/Vol] 139 136-144 mmol/L Normal 09-14-2019 [facility] (45963) Comment: Performed By: #### CMP, CERU LO, CK, TSH, COPPER, ZINC ####[facility] [place], [place] [phone]#### MYOSPL ####[facility] [address]pe[address] [place], [place] [phone] Urea nitrogen [Mass/Vol] 16 9-24 mg/dL Normal 09-14 [facility] (07202) Comment: Performed By: #### CMP, CERU LO, CK, TSH, COPPER, ZINC ####[facility] [place], [place] [phone]#### MYOSPL ####[facility] Ucqnlbduov[address] [place], [place] [phone] cnov on 2019-09-14 CNOV Office Visit (NENMMN) Normal 09-14-20 [facility] AARON DONATO ([id number]) 1955 [facility] Date Time Provider Department ([id number]) 09/14/19 2:30 PM DEISY JUAREZ (DAMIAN) NENMMN During your visit today, we recorded the following informati on about you: Pulse Respiration Blood pressure Weight 69/minute 14/minute 126/79 93 kg Height 1.734 m Jose Arrington MD 09/16/2019 6:33 PM Signed [facility] New Patient Visit Note Consultation requested by Dr. Colten Cameron for an opinion r egarding CK elevation. My final recommendations will be communicated mary k to the requesting physician by way of shared Medical record o r letter to requesting physician via US mail. History of Present Illness: Mr. Donato is a pleasant 64 year old right-handed Caucasia n male with a history of CKD stage 3, h/o rhabdomyolys is on crestor, BPH, macrocytic anemia, hypothyroidism, presenting for evaluation of CK elevation. About a year and a half ago, he had a right ingu inal hernia surgery following which he noticed that he was slowly becoming weak in the right leg and was also having leg swelling from the hip down. This also occur s on the left side but not to the same extent. This was intermittent and he would notice that with exertion his swelling and weakness would be worse and this would become better with rest (sleep for 4 hours ). 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 No injuries. There is some numbness in his feet (soles) as we ll and this has been going on for about the same time as the above. No radicular pain. He says he was started on crestor in 2018 and took it for 2 months. When he was started on it, the CK was being monitored and although nicolasa shook had no new symptoms his CK level was elevated - they were checkin g it every 2 weeks. At the 2 month irving, the level was high enough to warrant stopping the medication. He was then admitted to the hospital in May 2019 - he had s ome kidney dysfunction and was treated with IVFs at the time. They also stopped the crestor. Denies symptoms of dark/bloody urine, m uscle aches and pains. He was discharged when the level wa s down to 2068. Since then he has had monitoring of CK levels every 2 weeks with the last le orlando having been done about a week ago. Throughout the level has bee n up and down but has stayed between 2000 and 3000, the highest level was about a week ago. He denies feel ing different when the levels are high or low. His main symptom continued to be fatigue on exertion e specially in the right leg. He denies noticing any recent muscle bulk loss. There is n o muscle pain, no cramps or muscle twitching. No symptoms in hands and no oculobulbar symptoms. No auton omic symptoms. No consitutional symptoms. No unintentional weight loss. He is able to climb stairs without difficulty and can cover about a 1/2 acre without needing rest. Imbalance is not an issue. He is also not falling. He has not noticed any significant change in the color of his urine including dark red/cola colored urine changes, especially after signif icant exertion/physical activity. The patient does not report any other symptoms referrable to neurological focality or neuromuscular deficits. Prior workup: A1c not done Copper, zinc, ceruloplasmin not done Cr 1.40 AST 117 (baseline around 60) TSH 122 (elevated, 0.4-5.5 normal limits) B12 659 MMA 160 No M protein on electrophoresis Free kappa chains 28.2 (3.30-19.4) Free lambda: 18.6 normal K/L ratio: 1.52, no M protein identified RBC folate normal LDH 845 (135-225) CK 4309 on 09/04/2019 PAST MEDICAL HISTORY Diagnosis Date - Anemia 08/24/2017 - Bronchitis with airway obstruction (HCC) 08/24/2017 - CKD (chronic kidney disease) stage 3, GFR 30-59 ml/min (HC C) 02/01/2018 - COPD (chronic obstructive pulmonary disease) (HCC) - Inguinal hernia 12/29/2017 Added automatically from request for surgery [id number] - Pure hypercholesterolemia 01/01/2018 - Tobacco use disorder, continuous 08/24/2017 - Urine retention 02/06/2018 PAST SURGICAL HISTORY Procedure Laterality Date - COLONOSCOP W/ OR W/O [facility] SPEC 11/01/2017 Colonoscopy - small adenomatous polyp-5 year follow-up - EXPLR PATELLAR TENDON Right 2005 Dr. Eller. - PAST SURGICAL HISTORY OF Bilateral 1980 foot surgery - REPAIR ING HERNIA,5+Y/O,REDUCIBL 01/04/2018 Hernia repair, inguinal, right w/mesh Freeman - ROTATOR CUFF REPAIR Right 11/2013 Dr. Eller Medications: Current Outpatient Medications: levothyroxine (SYNTHROID) 100 mcg tablet TAKE 1 TABLET BY MO UTH EVERY DAY SEPERATE FROM FOOD, NOT WITH DAIRY OR MULTIVITAMINS cholecalciferol (VITAMIN D-3) 2,000 unit tablet Take 2,000 Units by mouth once daily. tamsulosin ER (FLOMAX) 0.4 mg cap TAKE 1 CAPSULE BY MOUTH DAILY AT BEDTIME. No current facility-administered medications for this visit. Allergies: See updated allergies documented below. 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 Denies heavy dr inking in the past. Drug use: No Sexual activity: Not on file Lifestyle Physical activity: Days per week: Not on file Minutes per session: Not on file Stress: Not on file Relationships Social connections: Talks on phone: Not on file Gets together: Not on file Attends [employer] service: Not on file Active member of club or organization: Not on file Attends meetings of clubs or organizations: Not on file Relationship status: Not on file Intimate partner violence: Fear of current or ex partner: Not on file Emotionally abused: Not on file Physically abused: Not on file Forced sexual activity: Not on file Other Topics Concerns: Not on file Social History Narrative Not on file FAMILY HISTORY Problem Relation Age of Onset - Heart Failure Mother - Kidney Disease Mother - Diabetes Mother - COPD Father - Cancer Father head and neck - Obesity Sister - Coronary Artery Disease Brother MS - None Brother - None Brother - None Brother No history of neuromuscular disease. ROS: CONSTITUTIONAL: No reported fevers, chills, night sweats, or significant unintentional weight loss. EYES: No visual changes indicated. No eye pain or orbi oracio swelling reported. HEENT: No hearing changes or vertiginous symptoms indicated. No history of nose bleeds reported. RESPIRATORY: No reported cough, sputum, wheezing and dyspnea . CARDIOVASCULAR: Negative for significant chest pain, and pal pitations per report. GI: Negative for significant abdominal discomfort, blood i n stools or black stools reported. No recent reported change in bowel habits. : No reported history of incontinence. No dark /cola colored urine reported. MUSCLOSKELETAL: No history of significant joint pain or swelling, or myalgias reported. SKIN: Negative for pertinent lesions, rash, and itching per report. HEMATOLOGY/ONCOLOGY: Negativ e for reported prolonged bleeding, bruising easily, and swollen nodes. ENDOCRINE: Negative for reported significant cold or heat in tolerance, no reported goitrous neck swelling or polydipsia PSYCH: No reported depression or anxiety symptoms. No report ed SI or HI. NEURO: Per HPI above. No reported sleep disturbance. Vital Signs: BP 126/79 (BP Site: Right Ar m, BP Position: Sitting, BP Cuff Size: Large Adult) Pulse 69 Resp 14 Ht 173.4 cm (5' 8.25) Wt 93 kg (20 5 lb) SpO2 96% BMI 30.94 kg/m? General Medical Exam: General: Clinically well-appearing, comfortable. Eyes/ ENT: see cranial nerve examination. Neck: No masses appreciated. Adequate range of motion without tenderness. Respiratory: Clear to auscultation, good air e ntry bilaterally. Cardiac/vascular: Regular rate and rhythm, no murmur appreci ated. GI: non-distended abdomen. Rectal examination deferred. Back: Mo derate range flexion and extension with no pain to palpation. Extremities : No pertinent deformities, no significant edema, or skin discoloration. Skin: Skin color, texture, turgor normal. No pertinent rashes or lesions. Neurologic Exam: Mental status including: orientation to time, place, person normal. CRANIAL NERVES: II: No visual field defects. III-IV-: Pupils equal round a nd reactive to light. Normal conjugate, extra-ocular ey e movements in all directions of gaze. No nystagmus. No ptosis prior to or post sustained upgaze. V: Normal facial sensation. VII: Normal facial symmetry and movements. VIII: Normal hearing and vestibular function. IX-X: Normal palatal movement. XI : Normal shoulder shrug and head rotation. XII: Normal tongue strength a nd range of motion, no deviation or fasciculation. Speech is not dysarthric. MOTOR: No appreciable atrophy, fasciculations or abnormal movements . No pronator drift. No scapular winging. Tone is within normal limits. Strength/Power (MRC grade- out of 5): Neck Flexion 5 Neck Extension 5 Upper extremity power, when graded out of 5, revealed: ?? ? Right Left ?? shoulder abduction 5 5 ? shoulder adduction 5 5 shoulder internal rotation 5 5 shoulder external rotation 5 5 ? elbow extension 5 5 ? elbow flexion 5 5 ? forearm supination 5 5 forearm pronation 5 5 ? wrist extension 5 5 ? wrist flexion 5 5 ? finger extension 5 5 ? deep finger flexion (D2-3) 5 5 deep finger flexion (D4-5) 5 5 ? thumb flexion with FPL 5 5 ? thumb abduction with APB 5 5 ? finger abduction 5 5 ? Lower extremity strength, when reported the same way, showed :? ? Right Left ?? hip flexion 5 5 ? hip extension 5 5 ? hip adduction 5 5 hip abduction 5 5 ? knee flexion 5 5 ? knee extension 5 5 ? ankle dorsiflexion 5 5 ? ankle plantar flexion 5 5 ? foot inversion 5 5 ? foot eversion 5 5 ? toe extension 5 5 ? toe flexion 5 5 ? Able to rise from a chair without using arms. Deep Tendon Reflexes (DTRs):? ? ? Right Left ?? Biceps 2+ 2+ ?brisk Triceps 2+ 2+ ?brisk Brachioradialis 2+ 2+ ?brisk Patellar 2+ 2+ ?brisk Achilles 0 0 ? Vertical spread: No Crossed adductors: No Peña's sign: No Tromner's sign: No Plantar responses: flexor Clonus: No SENSORY: Reduced sensation to PP and temperature (abou t 50% of normal) up to just below knees b/l. Vibration barely there at toes but normal at ankles and knees. Proprioception normal. Romberg's sign absent. COORDINATION/GAIT: Normal finger-to- nos e-finger and qxjc-uz-inzt bilaterally. Intact rapid alternating movements bilaterally. Gait narrow-based and stable. Tandem and stressed gait intact. OUTSIDE RECORDS: The patient provided outside medical record s, which were reviewed during the course o f the visit and relevant details are included above in HPI. INTERNAL RECORDS: The patient's electronic medical record wa s reviewed. IMPRESSION: 64 year old right-handed male with a history of CK D stage 3, h/o rhabdomyolysis on crestor, BPH, macrocytic anemi a, hypothyroidism, presenting for evaluation of CK elevati on. The patient states that he has had intermittent right leg swelling and fatigue in both legs since his righ t inguinal hernia surgery a year and a half ago. Resting for a few hours helps alleviate symptoms. He denies persistent or progressive weakness or myalgias/cramps/fasciculatio ns. About 4-5 months ago, he was started on crestor for newly-diagnosed hyperlipidemia. As per his report, his d octors aniyah a baseline level of CK and fol lowed the CK level [id number] while he was on crestor and this was slowly trending up until 2 months later it was significantly elevated (>4000) and he had worsening kidney fun ction during this time but no additional symptoms. He was treated with IVFs, crestor was stopped, and when his kidney function returned to baseline and his CK had trended down to 2000 he was discharged. Since then he has contin ued to have CK monitoring done every 2 weeks and it has ranged between 2000-400 0 with the highest value a week ago as noted above in HPI. He denies any new symptoms and there a re no myalgias or muscle weakness reported currently that is any differe nt from symptoms about 1.5 years ago. Neurologic exam shows normal muscle str ength. 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 He denies neuropathic pain. Labs done about a week ago showed elevated TSH, normal B12 and MMA, and normal immunofixation (except for isolated eleva tion in free kappa chains but normal lambda and K/L ratio). We need some further information regarding basel ine muscle enzymes as well as additional workup to investigate the cause of his CK-emia. At this time, it appears that the cause could be multifactorial (hypothyroi dism, significant physical activity, recent use of statin). It is also possible that as in some cases the CK may just take more time to trend do wn after exposure to myotoxic med like statin. However, given that he has had a trending up of the CK level, we would like to check a myositis panel (includi ng HMCoAR Abs) to rule out an additional underlying cause of the persistent CK elevation. We also need additional labs to investigate the cause of his neuropathy. PLAN/RECOMMENDATIONS: - The impression above as well as the plan as ou tlined below were extensively discussed with the patient (in the company of his brother) home epstein voiced understanding. All questions were answered to their stated s atisfaction. - Will pursue the following w/u/studies including those for secondary/potentially treatable underlying conditions: - CK - Copper, ceruloplasmin, Zinc - TSH - Myositis panel, Anti HMGCR Abs - CMP - We will plan additional workup based on the results of the labs above. - When available, results of the above investigations and po ssible further recommendations will be communicated to the patient via tele phone/Mediushart. Patient to call office if no t contacted after expected testing turnaround time. To aid with communication, patients (and primary care physicians) can sign up for [employer] (or [employer]), which allows online appointment scheduling, transmission of labs results and chart notes, an d secure email communication. To establish either account, visit [email or web address]. Deisy Juarez MD Neuromuscular Medicine (NM) Fellow In the service of Dr Arrington (NM Staff) [facility] STAFF: TEACHING PHYSICIAN NOTE OF PERSONAL INVOLVEMENT IN CARE I have reviewed the progress note obtained and documented by Dr. Juarez and I have participated in the longoria components. I have discussed th e case and management of the patient's care with Dr Encinas. I agree with the assessment and plan as documented with changes to the assessment and plan sections of note italicized. It seems he has persistent h igh CK after this was being regularly checked after starting statin. Had CK per verbal report > 4000 and in local hospital and tr eated as rhabdomyolysis w/ IVFs and then D/C'd. He has no weakness on exam. He is still working and ot her than fatigue after long hours of work no motor impairment. We will recheck labs, do some screening for ? PN based on exam of Dr. Juarez and obtain OSH records to better ascertain the labs and their tr ends before deciding on further work up. Explained at length to pt and brother. Both expressed unders tanding and agreement. Jose Arrington MD Referring provider: Colten Cameron MD [address] [place] [address] Primary care provider: Colten Cameron MD [address] [place] [address] Referring Provider: COLTEN CAMERON [[id number]] Allergies As of Date: 09/14/2019 Noted Allergy Reaction CRESTOR (ROSUVASTATIN) 08/13/2019 14 - Other: See Comments Comments: Liver problems, muscle weakness PENICILLIN 08/24/2017 4 - Hives Date Reviewed: 09/14/2019 Reviewed by: Deisy Juarez MD (Fel) - Fully Assessed Reason for Visit: New Patient [172] Primary Visit Diagnosis:Elevated CK [R74.8] Other Visit Diagnosis:Hereditary and idiopathic peripheral neuropathy [G60.9] Order(s):ANTI HMGCR AUTOANTIBODIES [SQHMGCR] Order #: [id number]. #:[id number] COPPER BLOOD [SQCOPPER] Order #: [id number]. #:[id number] COPPER CERULOPLASMIN BLD [SQCERULO] Order #: [id number]. #:[id number] ZINC BLD [SQZINC] Order #: [id number]. #:[id number] TSH BLD [SQTSH] Order #: [id number]. #:[id number] POLYMYOSITIS AND DERMATOMYOSITIS PANEL [SQMYOSPL] Order #: [id number]. #:[id number] CK CREATINE KINASE [SQCK] Order #: [id number]. #:[id number] COMP METABOLIC PANEL [SQCMP] Order #: [id number]. #:[id number] Prescriptions as of 09/14/2019 Sig: LEVOTHYROXINE 100 MCG TABLET TAKE 1 TABLET BY MOUTH EVERY * CHOLECALCIFEROL (VITAMIN D3) * Take 2,000 Units by mouth onc * TAMSULOSIN 0.4 MG CAPSULE TAKE 1 CAPSULE BY MOUTH DAILY* Problem List As Of Date 09/14/2019 Noted Resolved Bronchitis with airway obstruction (HCC) [J44.9]INVALID FOR* Hypoxemia [R09.02] INVALID FOR*12/30/2017 Tobacco use disorder, continuous [F17.209] INVALID FOR*12/30 Anemia [D64.9] INVALID FOR* Reducible right inguinal hernia [K40.90] INVALID FOR* 018 Inguinal hernia [K40.90] INVALID FOR*02/01/2018 More... Pure hypercholesterolemia [E78.00] INVALID FOR* Kidney insufficiency [N28.9] INVALID FOR*08/09/2018 CKD (chronic kidney disease) stage 3, GFR 30-59*INVALID FOR* Urine retention [R33.9] INVALID FOR* Follow-up and Disposition History Recorded Encounter Status:Closed by JOSE ARRINGTON on 09/16/19 ck on 2019-09-14 CK [Catalytic activity/Vol] [phone] U/L High [facility] ([id number]) Comment: Performed By: #### CMP, CERU LO, CK, TSH, COPPER, ZINC ####[facility] [address] [place], [place] [phone]#### MYOSPL ####[facility] [address] [place], [place] [phone] ceruloplasmin on 15-09-18 Ceruloplasmin 28 15-30 mg/dL Normal 09-14-2019 [facility] (87857) Comment: Performed By: #### CMP, CERU LO, CK, TSH, COPPER, ZINC ####[facility] [address] [place], [place] [phone]#### MYOSPL ####[facility] [address] [place], [place] [phone] anti hmgcr auto abs on 2019-09-14 Anti HMGCR Ab Test <3 0-19 Normal 09-14-2019 [facility] ([id number]) Comment: Result Comment: (NOTE) INTERPRETIVE INFORMATION: HM GCR Antibody, IgG IgG antibodies to 3-hydroxy- 5-jverqgrrjwcbjs-iqtxudvv A reductase (HMGCR) are mainly associate d with necrotizing autoimmune myopathy (NAM) in a subset of statin- treated patients. Although infrequent, these antibodies may also be observed in statin-naive patients with NAM. Strong clinical co rrelation is recommended in the absence of muscle fiber necr osis, elevated serum creatine kinase, perimysial pathology, and/or statin exposure. Test developed and character istics determined by [facility]. See Compliance Statement A: [email or web address] Performed by [facility]att, [address] [place], [place] [address] [email or web address], Magen Lu do, MD, Lab. Director Performed By: #### HMGCR ### #FacishareDENNIS [address] [place], [place] [phone] progress on 2019-07 PROGRESS HNO ID: [id number] Normal 08-17-2019 [facility] Author: Yesenia (Stephanie) Skyler Londono ([id number]) Service: ? Author Type: Physician Director Call Center Sales Type: Progress Notes Filed: 08/17/2019 11:47 AM Note Text: [facility] PATIENT INFO: Aaron Donato 64 year old PCP: Mat Sanchez MD CHIEF COMPLAINT: Urinary retention and CKD HPI: This is a 64 year old male, who has had urinary retention wi th PVR's > 600 ml even of Flomax daily He has been seen by Nephrology and found to have had Rhabdom yolysis from Statin Medications and his Renal Function is impared PVR today - 698 ml and with stright catheter he emptied 700 ml I discussed ISC vs possible TUR with preliminary Cysto/TRUS and UDS prior He states that he is unaware most times that he has a full b ladder, but there are times he feels a very strong urge but not consista nt ALLERGY: ALLERGIES Allergen Reactions - Crestor [Rosuvastat* Other: See Comments Liver problems, muscle weakness - Penicillin Hives MEDICATIONS: Current Outpatient Medications Medication Sig Dispense Refill - cholecalciferol (VITAMIN D-3) 2,000 unit tablet Take 2,000 Units by mouth once daily. - tamsulosin ER (FLOMAX) 0.4 mg cap TAKE 1 CAPSULE BY MOUTH DAILY AT BEDTIME. 30 capsule 5 No current facility-administered medications for this visit. Past Medical History PAST MEDICAL HISTORY Diagnosis Date - Anemia 08/24/2017 - Bronchitis with airway obstruction (HCC) 08/24/2017 - CKD (chronic kidney disease) stage 3, GFR 30-59 ml/min (HC C) 02/01/2018 - COPD (chronic obstructive pulmonary disease) (HCC) - Inguinal hernia 12/29/2017 Added automatically from request for surgery [id number] - Pure hypercholesterolemia 01/01/2018 - Tobacco use disorder, continuous 08/24/2017 - Urine retention 02/06/2018 REVIEW OF SYSTEMS: General: General: Well developed, well nourished. No acute d istress Renal CKD MSK: History of Rhabdomyolysis from Statins PHYSICAL EXAMINATION: General Appearance/ Constitutional: Well developed, well nou rished, and in no apparent distress (MALE): Prostate: About 40 gm, non tender, no nodules PSA (ng/mL) Date Value 12/30/2017 0.75 Creatinine Date Value Ref Range Status 08/13/2019 1.35 (H) 0.73 - 1.22 mg/dL Final 01/30/2018 1.35 (H) 0.73 - 1.22 mg/dL Final 12/30/2017 1.33 (H) 0.73 - 1.22 mg/dL Final Results for orders placed or performed in visit on 08/17/19 UA DIP, URINE (POC) Result Value Ref Range GLUCOSE UA (POCT) Negative Negative mg/dL BILIRUBIN UA (POCT) Negative Negative KETONE UA (POCT) Negative Negative mg/dL SPECIFIC GRAVITY UA (POCT) 1.010 1.005 - 1.030 HEMOGLOBIN/BLOOD UA (POCT) Negative Negative PH UA (POCT) 7.0 4.5 - 8.0 PROTEIN UA (POCT) Negative Negative mg/dL UROBILINOGEN UA (POCT) 0.2 Normal E.U./dL NITRITE UA (POCT) Negative Negative LEUKOCYTES UA (POCT) Negative Negative COLOR UA (POCT) Light yellow CLARITY UA (POCT) Clear UROLOGICAL DATA: Post Void Residual, Ultrasound: 698 ml with cath 700 ml IMPRESSION / PLAN: > History of Renal Dysfunction > Followed by Nephrology > Rhabdomyolysis from Statins managed > History of BPH with LUTS > History of Urine Retention > placed on Flomax not sure if it helps him > PVR today 698 ml with Bladder Scan 700 ml with catheter > he does not feel any pain with this distended baldder > Continue Flomax > Please schedule patient for Cysto/TRUS and Urodynamics kristofer Guzman in HOPS at [facility] on 08/30/2019 there is an 11:15 am ope arcenio available. Yesenia Mccormack MPAS, [place], PA-Cheryl cnov on 2019-08-17 CNOV Office Visit (UROLWS) Normal 08-17-20 [facility] AARON DONATO ([id number]) 1955 M [place] Date Time Provider Department ([id number]) 08/17/19 9:30 AM YESENIA MCCORMACK (STEPHANIE) UROLWS During your visit today, we recorded the following informati on about you: Pulse Respiration Blood pressure Weight 49/minute 16/minute 141/89 95.4 kg STEPHANIE Lei 08/17/2019 11:47 AM Signed [facility] PATIENT INFO: Aaron Donato 64 year old PCP: Mat Sanchez MD CHIEF COMPLAINT: Urinary retention and CKD HPI: This is a 64 year old male, who has had urinary retention with PVR's > 600 ml even of Flomax daily He has been seen by Nephrolo gy and found to have had Rhabdomyolysis from Statin Medications and his Renal Function is impared PVR today - 698 ml and with stright catheter he emptied 700 ml I discussed ISC vs possible TUR with preliminary Cysto/TRUS and UDS prior He states that he is unaware most times that he has a full bladder, but there are times he feels a very strong urge but not consistant ALLERGY: ALLERGIES Allergen Reactions - Crestor [Rosuvastat* Other: See Comments Liver problems, muscle weakness - Penicillin Hives MEDICATIONS: Current Outpatient Medications Medication Sig Dispense Refill - cholecalciferol (VITAMIN D-3) 2,000 unit tablet Take 2,0 00 Units by mouth once daily. - tamsulosin ER (FLOMAX) 0.4 mg cap TAKE 1 CAPSU LE BY MOUTH DAILY AT BEDTIME. 30 capsule 5 No current facility-administered medications for this visit. Past Medical History PAST MEDICAL HISTORY Diagnosis Date - Anemia 08/24/2017 - Bronchitis with airway obstruction (HCC) 08/24/2017 - CKD (chronic kidney disease) stage 3, GFR 30-59 ml/min (HC C) 02/01/2018 - COPD (chronic obstructive pulmonary disease) (HCC) - Inguinal hernia 12/29/2017 Added automatically from request for surgery [id number] - Pure hypercholesterolemia 01/01/2018 - Tobacco use disorder, continuous 08/24/2017 - Urine retention 02/06/2018 REVIEW OF SYSTEMS: General: General: Well developed, well nourished. No acute d istress Renal CKD MSK: History of Rhabdomyolysis from Statins PHYSICAL EXAMINATION: General Appearance/ Constitutional: Well develop ed, well nourished, and in no apparent distress (MALE): Prostate: About 40 gm, non tender, no nodules PSA (ng/mL) Date Value 12/30/2017 0.75 Creatinine Date Value Ref Range Status 08/13/2019 1.35 (H) 0.73 - 1.22 mg/dL Final 01/30/2018 1.35 (H) 0.73 - 1.22 mg/dL Final 12/30/2017 1.33 (H) 0.73 - 1.22 mg/dL Final Results for orders placed or performed in visit on 08/17/19 UA DIP, URINE (POC) Result Value Ref Range GLUCOSE UA (POCT) Negative Negative mg/dL BILIRUBIN UA (POCT) Negative Negative KETONE UA (POCT) Negative Negative mg/dL SPECIFIC GRAVITY UA (POCT) 1.010 1.005 - 1.030 HEMOGLOBIN/BLOOD UA (POCT) Negative Negative PH UA (POCT) 7.0 4.5 - 8.0 PROTEIN UA (POCT) Negative Negative mg/dL UROBILINOGEN UA (POCT) 0.2 Normal E.U./dL NITRITE UA (POCT) Negative Negative LEUKOCYTES UA (POCT) Negative Negative COLOR UA (POCT) Light yellow CLARITY UA (POCT) Clear UROLOGICAL DATA: Post Void Residual, Ultrasound: 698 ml with cath 700 ml IMPRESSION / PLAN: > History of Renal Dysfunction > Followed by Nephrology > Rhabdomyolysis from Statins managed > History of BPH with LUTS > History of Urine Retention > placed on Flomax not sure if it helps him > PVR today 698 ml with Bladder Scan 700 ml with catheter > he does not feel any pain with this distended baldder > Continue Flomax > Please schedule patient for Cysto/TRUS and Urodynami cs with Dr. Guzman in HOPS at [facility] on 08/30/2019 there is an 11:15 am openin g available. Yesenia Mccoramck MPAS, MT, PA-C Referring Provider: SELF [[id number]] Allergies As of Date: 08/17/2019 Noted Allergy Reaction CRESTOR (ROSUVASTATIN) 08/13/2019 14 - Other: See Comments Comments: Liver problems, muscle weakness PENICILLIN 08/24/2017 4 - Hives Date Reviewed: 08/17/2019 Reviewed by: Genia Pinedo Ma - Fully Assessed Reason for Visit: New Patient [172] Primary Visit Diagnosis:Urine retention [R33.9] Other Visit Diagnoses:BPH with obstruction/lower urinary tra ct symptoms [N40.1, N13.8] Kidney insufficiency [N28.9] Order(s):UA DIP, URINE (POC) [[id number]] Order #: [id number] ec. #:[id number] POST VOID RESIDUAL [[id number]] Order #: [id number] CYSTO/TRUS ONLY [[id number]] Order #: [id number] URODYNAMICS [[id number]] Order #: [id number] Prescriptions as of 08/17/2019 Sig: CHOLECALCIFEROL (VITAMIN D3) * Take 2,000 Units by mouth onc * TAMSULOSIN 0.4 MG CAPSULE TAKE 1 CAPSULE BY MOUTH DAILY* Problem List As Of Date 08/17/2019 Noted Resolved Bronchitis with airway obstruction (HCC) [J44.9]INVALID FOR* Hypoxemia [R09.02] INVALID FOR*12/30/2017 Tobacco use disorder, continuous [F17.209] INVALID FOR*12/30 Anemia [D64.9] INVALID FOR* Reducible right inguinal hernia [K40.90] INVALID FOR* 018 Inguinal hernia [K40.90] INVALID FOR*02/01/2018 More... Pure hypercholesterolemia [E78.00] INVALID FOR* Kidney insufficiency [N28.9] INVALID FOR*08/09/2018 CKD (chronic kidney disease) stage 3, GFR 30-59*INVALID FOR* Urine retention [R33.9] INVALID FOR* Disposition: Return in about 13 days (around 08/30/2019). Follow-up and Disposition History Recorded Encounter Status:Closed by YESENIA MCCORMACK PA-C on 08/17/19 vitamin b12 on 2018 Cobalamin (Vitamin B12) [phone] pg/mL Normal 2018 [facility] [Mass/Vol] [place] ([id number]) Comment: Performed By: #### HAPTO, B1 2, TSH, STREV, EPO, SERMPA, SEPG, MMA #### [facility] [address] [phone] tsh on 2019-08-13 TSH Qn 122.000 0.400-5.500 uU/mL High 08-13-2019 [facility] (00337) Comment: Performed By: #### HAPTO, B1 2, TSH, STREV, EPO, SERMPA, SEPG, MMA #### [facility] [address] [address] staff rev w cbcdif on 2019-08-13 Abs Baso 0.04 <0.11 k/uL Normal 08-13-2019 [facility] (13400) Comment: Performed By: #### HAPTO, B1 2, TSH, STREV, EPO, SERMPA, SEPG, MMA #### [facility] [address] [address] Abs Walker 0.32 <0.87 k/uL Normal 08-13-2019 [facility] (84002) Comment: Performed By: #### HAPTO, B1 2, TSH, STREV, EPO, SERMPA, SEPG, MMA #### [facility] [address] [phone] Abs Neut 2.03 1.45-7.50 k/uL Normal 08-13-2019 [facility] (44279) Comment: Performed By: #### HAPTO, B1 2, TSH, STREV, EPO, SERMPA, SEPG, MMA #### [place] [address] Absolute nRBC <0.01 <0.01 Normal 08-13-2019 [facility] (29287) Comment: Performed By: #### HAPTO, B1 2, TSH, STREV, EPO, SERMPA, SEPG, MMA #### [place] [phone] Basophils/100 WBC (Bld) 1.0 % Normal 2018 [facility] (58782) Comment: Performed By: #### HAPTO, B1 2, TSH, STREV, EPO, SERMPA, SEPG, MMA #### [place] [phone] DTYPE Auto Diff Normal 08-13-2019 [facility] (58654) Comment: Performed By: #### HAPTO, B1 2, TSH, STREV, EPO, SERMPA, SEPG, MMA #### [place] [phone] Eosinophils (Bld) [#/Vol] 0.11 <0.46 k/uL Normal 07-29 [facility] (24673) Comment: Performed By: #### HAPTO, B1 2, TSH, STREV, EPO, SERMPA, SEPG, MMA #### [place] [phone] Eosinophils/100 WBC (Bld) 2.6 % Normal 07-29 [facility] (72308) Comment: Performed By: #### HAPTO, B1 2, TSH, STREV, EPO, SERMPA, SEPG, MMA #### [place] [address] Erythrocyte distribution 13.8 11.5-15.0 % Normal 08-13 [facility] width (RBC) [Ratio] [place] (12573) Comment: Performed By: #### HAPTO, B1 2, TSH, STREV, EPO, SERMPA, SEPG, MMA #### [facility] [address] [place], [place] [address] Hemoglobin (Bld) 10.5 13.0-17.0 g/dL Low 08-13-2019 [facility] [Mass/Vol] [place] (39966) Comment: Performed By: #### HAPTO, B1 2, TSH, STREV, EPO, SERMPA, SEPG, MMA #### [facility] [address] [place] [address] Lymphocytes (Bld) [#/Vol] 1.65 1.00-4.00 k/uL Normal 07-29 [facility] (11887) Comment: Performed By: #### HAPTO, B1 2, TSH, STREV, EPO, SERMPA, SEPG, MMA #### [facility] [address] [place] [address] Lymphocytes/100 WBC (Bld) 39.7 % Normal 07-29 [facility] (14082) Comment: Performed By: #### HAPTO, B1 2, TSH, STREV, EPO, SERMPA, SEPG, MMA #### [address] [address] MCH (RBC) [Entitic mass] 33.8 26.0-34.0 pG Normal 08-13 [facility] (78852) Comment: Performed By: #### HAPTO, B1 2, TSH, STREV, EPO, SERMPA, SEPG, MMA #### [facility] [address] [place] [address] MCHC (RBC) [Mass/Vol] 31.8 30.5-36.0 g/dL Normal 08-13-20 19 [facility] (40623) Comment: Performed By: #### HAPTO, B1 2, TSH, STREV, EPO, SERMPA, SEPG, MMA #### [facility] [address] [address] MCV (RBC) [Entitic vol] 106.1 80.0-100.0 fL High 08-13 [facility] (27784) Comment: Performed By: #### HAPTO, B1 2, TSH, STREV, EPO, SERMPA, SEPG, MMA #### [place] [address] Monocytes/100 WBC (Bld) 7.7 % Normal 2018 [facility] (92119) Comment: Performed By: #### HAPTO, B1 2, TSH, STREV, EPO, SERMPA, SEPG, MMA #### [place] [address] Neutrophils/100 WBC (Bld) 49.0 % Normal 07-29 [facility] (17099) Comment: Performed By: #### HAPTO, B1 2, TSH, STREV, EPO, SERMPA, SEPG, MMA #### [place] [address] NRBCs 0.0 0 /100 WBC Normal 08-13-2019 [facility] (83577) Comment: Performed By: #### HAPTO, B1 2, TSH, STREV, EPO, SERMPA, SEPG, MMA #### [place] [address] Pathologist Cyto stain The Staff Review on Normal 08-13-2019 [facility] Nom (Cvx/Vag) [ID] this sample was London[place] (00151) cancelled because the hematology analyzer did not flag any parameters as requiring manual review. If there is a specific clinical concern for which you would like a staff pathologist to review the blood smear, please call Lab Client Services within 28 days. Comment: Result Comment: Account Cred ited Performed By: #### HAPTO, B1 2, TSH, STREV, EPO, SERMPA, SEPG, MMA #### [facility] [address] [place], [place] [address] Platelet mean volume 10.8 9.0-12.7 fL Normal 9 [facility] (Bld) [Entitic vol] [place] (46556) Comment: Performed By: #### HAPTO, B1 2, TSH, STREV, EPO, SERMPA, SEPG, MMA #### [facility] [address] [place] [address] Platelets (Bld) [#/Vol] 163 150-400 k/uL Normal 2018 [facility] (40770) Comment: Performed By: #### HAPTO, B1 2, TSH, STREV, EPO, SERMPA, SEPG, MMA #### [facility] [address] [address] RBC (Bld) [#/Vol] 3.11 4.20-6.00 m/uL Low 08-13-2019 [facility] (25515) Comment: Performed By: #### HAPTO, B1 2, TSH, STREV, EPO, SERMPA, SEPG, MMA #### [facility] [address] [place], [place] [address] Staff Review SEE COMMENT Normal 08-13-2019 [facility] (60496) Comment: Result Comment: The Staff Re view on this sample was cancelled because the hematology analyzer did not flag any parameters as requiring manual review. If there is a specific clinical concern for which yo u would like a staff patholo gist to review the blood smear, please call Lab Client Services within 28 days. Account Credited Performed By: #### HAPTO, B1 2, TSH, STREV, EPO, SERMPA, SEPG, MMA #### [facility] [address] [place], [place] [address] WBC (Bld) [#/Vol] 4.16 3.70-11.00 k/uL Normal 08-13-2019 [facility] (89086) Comment: Performed By: #### HAPTO, B1 2, TSH, STREV, EPO, SERMPA, SEPG, MMA #### [facility] [address] [place], [place] [address] rbc folate on 08-13 FOLATE, RBC 629 >=366 ng/mL Normal 08-13-2019 [facility] (02678) Comment: Result Comment: (NOTE) Performed by [facility] , [address] [place], [place] [address] [email or web address], Magen Lu do, MD, Lab. Director Performed By: #### RBCFLP ## ##[address] [phone] [place] [phone] Hematocrit (Bld) [Volume 33.0 39.0-51.0 % Low 08-13 [facility] fraction] (30942) Comment: Performed By: #### RBCFLP ## ##[address] [phone] [address] [phone] Performed By: #### HAPTO, B1 2, TSH, STREV, EPO, SERMPA, SEPG, MMA #### [facility] [address] [place], [place] [address] protein electrophor. on 2019-08-13 Albumin [Mass/Vol] 3.92 3.37-4.23 gm/dL Normal 08-13-2019 [facility] (92721) Comment: Performed By: #### HAPTO, B1 2, TSH, STREV, EPO, SERMPA, SEPG, MMA ####[facility] Laborat [id number] [place], [place] [phone] Alpha 1 Globulin 0.27 0.18-0.31 gm/dL Normal 08-13-2019 [facility] (16836) Comment: Performed By: #### HAPTO, B1 2, TSH, STREV, EPO, SERMPA, SEPG, MMA ####[facility] Laborat [address] [phone] Alpha 2 Globulin 0.58 0.52-0.97 gm/dL Normal 08-13-2019 [facility] (82897) Comment: Performed By: #### HAPTO, B1 2, TSH, STREV, EPO, SERMPA, SEPG, MMA ####[facility] Laborat [phone] Beta Globulin 1.07 0.84-1.36 gm/dL Normal 08-13-2019 [facility] (87177) Comment: Performed By: #### HAPTO, B1 2, TSH, STREV, EPO, SERMPA, SEPG, MMA ####[facility] Laborat [address] [phone] Gamma Globulin 1.06 0.70-1.44 gm/dL Normal 08-13-2019 [facility] (97454) Comment: Performed By: #### HAPTO, B1 2, TSH, STREV, EPO, SERMPA, SEPG, MMA ####[facility] Laborat [id number] [phone] Interpretation SEE COMMENT Normal 08-13-2019 [facility] (08285) Comment: Result Comment: No definitiv e M protein is identified on protein electrophoresis. Performed By: #### HAPTO, B1 2, TSH, STREV, EPO, SERMPA, SEPG, MMA ####[facility] Laborat [id number] [phone] M Zan Concentratn 0.00 0.00 gm/dL Normal 08-13-2019 [facility] (23426) Comment: Performed By: #### HAPTO, B1 2, TSH, STREV, EPO, SERMPA, SEPG, MMA ####[facility] [address], [place] [phone] Protein [Mass/Vol] N/A Normal 08-13-2019 [facility] (48390) Comment: Performed By: #### HAPTO, B1 2, TSH, STREV, EPO, SERMPA, SEPG, MMA ####[facility] [address] [place], [place] [phone] Protein [Mass/Vol] 6.9 6.0-8.4 g/dL Normal 08-13-2019 [facility] (90455) Comment: Performed By: #### HAPTO, B1 2, TSH, STREV, EPO, SERMPA, SEPG, MMA ####[facility] [place], [place] [phone] SPE Staff Review Reviewed by Finesse Normal [facility] MD Florencio. ([id number]) [place] (83658) Comment: Performed By: #### HAPTO, B1 2, TSH, STREV, EPO, SERMPA, SEPG, MMA ####[facility] [id number], [place] [phone] progress on 2019-07 PROGRESS HNO ID: [id number] Normal 08-13-2019 [facility] Author: Jerry Gutierrez [place] (07340) Service: ? Author Type: Physician Type: Progress Notes Filed: 08/13/2019 12:09 PM Note Text: Consult requested by Dr. Cameron for my opinion and recomme ndations regarding a patient with macrocytic anemia. The impression a nd plan will be communicated by way of the shared electronic record. HPI: The patient is a 64-year-old male who has a past medica l history significant for rhabdomyolysis secondary to HMG co-a reducta se inhibitor therapy (Crestor), stage III CKD, BPH on Flomax. On recent CBC was noted to have macrocytic anemia. The total white count is 5400. Differential was normal. Myoglobin was 11.2 g/dL wi th hematocrit of 34.7% and an MCV of 105.5. MCH was 34 pg. Platelet count 196,000. Ferritin was 773 when measured on 05/23/2019. Serum iron was 112 mcg/dL on 05/23/2019. Chemistries significant for serum creatinine of 1 .46 mg/dL. Estimated GFR was 52 cc/m. Total protein was 7.5 g/dL with a n albumin of 4.0 g/dL. Globulin level was 3.5 g/dL. AST was 71 with an AL T of 61. Bilirubin and alkaline phosphatase normal. Calcium normal at 8.5 mg/dL. CPK when measured on 07/12 was 4173. Repeat on 07/24 was 2784. Good energy. Normal appetite. Has had numbness both feet to the ankles for several months. Uses compression stockings daily. Started noonan ving swelling to right knee and ankle on left for last 9 months. PMH, medications and allergies personally reviewed by me aaron gooden. Any changes documented in appropriate section. ROS: Constitutional: Denies episodes of fever and night sweats. N ot significantly fatigued. Normal appetite. Neuro: Denies NOONAN, vertigo, dizziness and imbalance. HEENT: No recent change in voice, vision or hearing. Resp: Denies cough, wheeze and hemoptysis. Denies shortness of breath at rest. Denies SHI. CVS: Denies exertional chest pain, PND, orthopnea. GI: Denies dysgeusia. Denies symptoms of stomatitis. Denies dysphagia and odynophagia. Denies reflux, n/v, change in bowel habits and abdominal pain. : Denies dysuria or gross hematuria. No symptoms of bladde r outlet obstruction. Endo: Denies hot flashes. Denies polyuria and polydipsia. De nies heat and cold intolerance. Musculoskeletal: Denies bone, back, joint and muscular pain. Derm: Denies rash. Denies jaundice and diffuse pruritis. Heme: Denies unusual bleeding and unexplained bruising. Psych: Normal mood. PHYSICAL EXAM: Vitals: Blood pressure 134/71, pulse (!) 50, temperature 36. 4 ?C (97.5 ?F), temperature source Temporal, height 173.4 cm (5' 8.25) , weight 95.7 kg (211 lb). Well-appearing and in no acute distress. EYES: Sclerae are anicteric bilaterally. ENT: Oral mucosa is unremarkable. There is no sign of thrush or mucositis. NECK: Supple. No enlargement of thyroid. LYMPHATIC: There is no palpable cervical, supraclavicular, a xillary or inguinal adenopathy. RESPIRATORY: Inspiratory breath sounds are of very diminishe d intensity in all rodrigues. No rales, wheezes or rhonchi. Expiratory phase i s normal. CARDIOVASCULAR: Rhythm is regular. Normal intensity S1/S2. T here is no gallop or murmur. ABDOMEN: The abdomen is nondistended. No organomegaly. No te nderness. Extremities: No swelling or edema. SKIN: No jaundice or rash. No petechiae. NEUROLOGIC: certified medical technician II-XII are grossly intact. No focal motor we akness. ASSESSMENT/PLAN: (D53.9) Macrocytic anemia (primary encounter diagnosis) Assessment: -In summary the patient is a 64-year-old male who has a rece nt history of anemia, macrocytic that has been slowly improving since time he was hospitalized in June for rhabdomyolysis. I discussed with him that this most likely is multifactorial including include some element of chronic kidney disease as well. Explained that we will take a sequen tial workup approach and check basic lab work including TSH, B-12 and RB C folate level. Additionally since he has underlying chronic kidney d isease it is reasonable to rule out an underlying plasma cell disorder. Plan: -Labs as ordered. -He'll be contacted early next week so the results of the la b work and any further indicated work up. Jerry Gutierrez, DO monclnl protein, ser on 2019-08-13 K/L Ratio, Serum 1.52 0.26-1.65 Normal 08-13-2019 [facility] ([id number]) Comment: Performed By: #### HAPTO, B1 2, TSH, STREV, EPO, SERMPA, SEPG, MMA #### [facility] [address] [place], [place] [address] Theba, Free, Serum 28.2 3.30-19.40 mg/L High 08-13-2019 [facility] ([id number]) Comment: Result Comment: Test perform ed by an immunoturbidimetric assay on Optilite instrument from [employer] . Immunoglobulin free light chain assay results should be interpreted in con junction with other tests and in correlation with clinical picture. Performed By: #### HAPTO, B1 2, TSH, STREV, EPO, SERMPA, SEPG, MMA #### [facility] [address] [place] [phone] Lambda, Free, Serum 18.6 5.7-26.3 mg/L Normal 08-13-2019 [facility] ([id number]) Comment: Result Comment: Test perform ed by an immunoturbidimetric assay on Optilite instrument from [employer] . Immunoglobulin free light chain assay results should be interpreted in con junction with other tests and in correlation with clinical picture. Performed By: #### HAPTO, B1 2, TSH, STREV, EPO, SERMPA, SEPG, MMA #### [facility] [address] [place] [phone] MPA Interpretation SEE COMMENT Normal 9 [facility] ([id number]) Comment: Result Comment: Poorly defin ed region of restricted mobility in the lambda cristofer. Pattern is less well defined or fainter than typically seen in monoclonal gammopathy. This could represent either an atyp ical presentation of polyclo nal immunoglobulins or the presence of a low level lambda containing monoclonal gammopathy. If clinically indicated, uri ne monoclonal protein analysis and serum free light chain measurements are recommended to evaluate further for monoclonal gammopathy. Clinical correlation is necessary. Performed By: #### HAPTO, B1 2, TSH, STREV, EPO, SERMPA, SEPG, MMA #### [facility] [address] [place] [address] MPA Serum IgA 307 78-391 mg/dL Normal 08-13-2019 [facility] ([id number]) Comment: Performed By: #### HAPTO, B1 2, TSH, STREV, EPO, SERMPA, SEPG, MMA #### [facility] [address] [place] [phone] MPA Serum IgG 558 620-8192 mg/dL Normal 08-13-2019 [facility] ([id number]) Comment: Performed By: #### HAPTO, B1 2, TSH, STREV, EPO, SERMPA, SEPG, MMA #### [facility] [address] [place] [address] MPA Serum IgM 82 53-334 mg/dL Normal 08-13-2019 [facility] ([id number]) Comment: Performed By: #### HAPTO, B1 2, TSH, STREV, EPO, SERMPA, SEPG, MMA #### [facility] [address] [place] [address] Protein A poorly No M protein is Critically 08-13-2019 Cl elvi [Mass/Vol] defined region identified. abnormal Cl inic of restricted Clevel and mobility is (54635) present that may represent an M protein. Comment: Performed By: #### HAPTO, B1 2, TSH, STREV, EPO, SERMPA, SEPG, MMA #### [facility] [address] [place] [address] Staff Review Reviewed by Finesse Matias, Normal 08-13-2019 [facility] ([id number]) Jerry pearson ([id number]) Comment: Performed By: #### HAPTO, B1 2, TSH, STREV, EPO, SERMPA, SEPG, MMA #### [facility] [address] [place] [address] methylmalonic acid on 2019-08-13 Methylmalonic Acid 160 79-376 nmol/L Normal 08-13-2019 [facility] ([id number]) Comment: Result Comment: This test wa s developed and its performance characteristics determined by [facility]'s Jeremiah Coles [facility] ([facility]). It has not been cleared or a pproved by the FDA. [facility] is regulated under CLIA as qualified to perform high complexity testing. This test is used for clinic al purposes. It should not be regarded as investigational or for research. Performed By: #### HAPTO, B1 2, TSH, STREV, EPO, SERMPA, SEPG, MMA ####[facility] [id number] [place], [place] [phone] ld on 2019-08-13 LD 845 135-225 U/L High 08-13-2019 [facility] ([id number]) haptoglobin on 2018 Haptoglobin 72 31-238 mg/dL Normal 08-13-2019 [facility] (52283) Comment: Performed By: #### HAPTO, B1 2, TSH, STREV, EPO, SERMPA, SEPG, MMA #### [facility] [address] [place], [place] [phone] epo on 2019-08-13 EPO 12.8 2.6-18.5 mIU/mL Normal 08-13-2019 [facility] ([id number]) Comment: Result Comment: Test analyze d by the Blayne DxI method. Performed By: #### HAPTO, B1 2, TSH, STREV, EPO, SERMPA, SEPG, MMA #### [facility] [address] [place] [id number] cnovsp on 2019-07-29 6 CNOVSP Visit (SP) Office (HEMAWS) Normal Tracy AARON Mena ([id number]) 1955 [facility] Date Time Provider Department ([id number]) 08/13/19 11:10 AM JERRY GUTIERREZ During your visit today, we recorded the following informati on about you: Temperature Pulse Blood pressure Weight 97.5 degrees 50/minute 134/71 95.7 kg Height 1.734 m Jerry Gutierrez DO 08/13/2019 12:09 PM Signed Consult requested by Dr. Cameron for my opinion and recommendations regarding a patient with macrocytic anemia. The im pression and plan will be communicated by way of the shared electronic record. HPI: The patient is a 64-year-old male who has a past medica l history significant for rhabdomyolysis secondary to HMG co-a reducta se inhibitor therapy (Crestor), stage III CKD, BPH on Flomax. On recent CBC was noted to have macrocytic anemia. The tot al white count is 5400. Differential was jaylyn l. Myoglobin was 11.2 g/dL with hematocrit of 34.7% and an MCV of 105.5. MCH was 34 pg. Platelet count 196,000. Ferritin was 773 when measured on 05/23/2019. Serum iron was 112 mcg/dL on 05/23/2019. Chemistries significant for serum creatinine of 1 .46 mg/dL. Estimated GFR was 52 cc/m. Total protein was 7.5 g/dL with an albumin of 4.0 g/dL. Globulin level was 3.5 g/dL. AST w as 71 with an ALT of 61. Bilirubin and alkaline phosphatase normal. Calcium nor mal at 8.5 mg/dL. CPK when measured on 07/12 was 4173. Repeat on 07/24 was 2784. Good energy. Normal appetite. Has had numbness both feet to the ankles for several months. Uses compression stockings daily. Star chilango having swelling to right knee and ankle on left for last 9 months. PMH, medications and allergies personally reviewed by me dona strickland. Any changes documented in appropriate section. ROS: Constitutional: Denies episodes of fever and night swe ats. Not significantly fatigued. Normal appetite. Neuro: Denies NOONAN, vertigo, dizziness and imbalance. HEENT: No recent change in voice, vision or hearing. Resp: Denies cough, wheeze and hemoptysi s. Denies shortness of breath at rest. Denies SHI. CVS: Denies exertional chest pain, PND, orthopnea. GI: Denies dysgeusia. Denies symptoms of stomatitis. Denies dysphagia and odynophagia. Denies reflux, n/v, change in bowel habits an d abdominal pain. : Denies dysuria or gross hematuria. No symptoms of bladde r outlet obstruction. Endo: Denies hot flashes. Denies polyuri a and polydipsia. Denies heat and cold intolerance. Musculoskeletal: Denies bone, back, joint and muscular pain. Derm: Denies rash. Denies jaundice and diffuse pruritis. Heme: Denies unusual bleeding and unexplained bruising. Psych: Normal mood. PHYSICAL EXAM: Vitals: Blood pressure 134/71, pulse (!) 50, temperature 3 6.4 ?C (97.5 ?F), temperature source Temporal, height 173.4 cm (5' 8.25 ), weight 95.7 kg (211 lb). Well-appearing and in no acute distress. EYES: Sclerae are anicteric bilaterally. ENT: Oral mucosa is unremarkable. There is no sign of thrush or mucositis. NECK: Supple. No enlargement of thyroid. LYMPHATIC: There is no palpa ble cervical, supraclavicular, axillary or inguinal adenopathy. RESPIRATORY: Inspiratory breath sounds a re of very diminished intensity in all rodrigues. No rales, wheezes or rhonchi. Expiratory phase is no rmal. CARDIOVASCULAR: Rhythm is regular. Normal intens ity S1/S2. There is no gallop or murmur. ABDOMEN: The abdomen is nondistended. No organomegaly. No te nderness. Extremities: No swelling or edema. SKIN: No jaundice or rash. No petechiae. NEUROLOGIC: certified medical technician II-XII are grossly intact. No focal motor we akness. ASSESSMENT/PLAN: (D53.9) Macrocytic anemia (primary encounter diagnosis) Assessment: -In summary the patient is a 64-year-old male who has a rece nt history of anemia, macrocytic that has been slowly improving since time he was hospitalized in June for rhabdomyolysi s. I discussed with him that this most likely is multifactorial including include some element of c hronic kidney disease as well. Explained that we will take a s equential workup approach and check basic lab work including TSH, B-12 and RBC folate le [place]. Additionally since he has underlying chronic kidney d isease it is reasonable to rule out an underlying plasma cell disorder. Plan: -Labs as ordered. -He'll be contacted early next week so the results of the la b work and any further indicated work up. Jerry Gutierrez DO Referring Provider: COLTEN CAMERON [[id number]] Allergies As of Date: 08/13/2019 Noted Allergy Reaction CRESTOR (ROSUVASTATIN) 08/13/2019 14 - Other: See Comments Comments: Liver problems, muscle weakness PENICILLIN 08/24/2017 4 - Hives Date Reviewed: 08/13/2019 Reviewed by: Shanta Rios - Fully Assessed Reason for Visit: New Patient Evaluation [154] Primary Visit Diagnosis:Macrocytic anemia [D53.9] Order(s):STAFF REVIEW WITH CBC AND DIFF [SQSTREV] Orde r #: [id number] FUTURE TSH BLD [SQTSH] Order #: [id number] FUTURE VITAMIN B12 BLOOD [SQB12] Order #: [id number] FUTURE FOLIC ACID RBC [SQRBCFOL] Order #: [id number] FUTURE METHYLMALONIC ACID [SQMMA] Order #: [id number] FUTURE ERYTHROPOIETIN/EPO [SQEPO] Order #: [id number] FUTURE BASIC METABOLIC PNL [SQBMP] Order #: [id number] FUTURE PROTEIN ELECTROPHORESIS W/INTERP [SQSEPG] Order #: [id number] FUTURE MONOCLONAL PROTEIN, SERUM (BLOOD) [SQSERMPA] Order #: [id number] FUTURE LD LACTATE DEHYDRO [SQLD6] Order #: [id number] FUTURE HAPTOGLOBIN BLD [SQHAPTO] Order #: [id number] FUTURE Follow-up and Disposition History Recorded Prescriptions as of 08/13/2019 Sig: CHOLECALCIFEROL (VITAMIN D3) * Take 2,000 Units by mouth onc * TAMSULOSIN 0.4 MG CAPSULE TAKE 1 CAPSULE BY MOUTH DAILY* Problem List As Of Date 08/13/2019 Noted Resolved Bronchitis with airway obstruction (HCC) [J44.9]INVALID FOR* Hypoxemia [R09.02] INVALID FOR*12/30/2017 Tobacco use disorder, continuous [F17.209] INVALID FOR*12/30 Anemia [D64.9] INVALID FOR* Reducible right inguinal hernia [K40.90] INVALID FOR* 018 Inguinal hernia [K40.90] INVALID FOR*02/01/2018 More... Pure hypercholesterolemia [E78.00] INVALID FOR* Kidney insufficiency [N28.9] INVALID FOR*08/09/2018 CKD (chronic kidney disease) stage 3, GFR 30-59*INVALID FOR* Urine retention [R33.9] INVALID FOR* Encounter Status:Closed by JERRY GUTIERREZ DO on 08/13/19 basic metabolic panl on 2019-08-13 Anion gap [Moles/Vol] 8 9-18 mmol/L Low 08-13-20 19 [facility] ([id number]) Calcium [Mass/Vol] 9.4 8.5-10.2 mg/dL Normal 08-13-2019 [facility] (54841) Chloride [Moles/Vol] 99 97-105 mmol/L Normal 9 [facility] ([id number]) CO2 [Moles/Vol] 28 22-30 mmol/L Normal 08-13-2019 [facility] (41126) Creatinine [Mass/Vol] 1.35 0.73-1.22 mg/dL High 08-13-20 [facility] (30199) eGFR- Amer. >60 Normal 08-13-2019 [facility] (37307) GFR/1.73 sq M predicted 54 . Normal 2018 [facility] among non-blacks MDRD Tracy ([id number]) (S/P/Bld) [Vol rate/Area] Comment: Result Comment: eGFR (Estima chilango GFR) Units of measure: mL/min/1.73 meters squared eGFR is derived from the ree xpressed MDRD Study equation using the following parameters: serum creatinine, age, gender and race. The creatinine assay has been calibrated to be traceable to IDMS. An eGFR <60 mL/min/1.73m2 fo r >3 months is consistent with chronic kidney disease. Refer to KDOQI guidelines for clinical interpretation. In patients with unstable re nal function, e.g. those with acute kidney injury, the eGFR may not accurately reflect actual GFR. Glucose [Mass/Vol] 86 74-99 mg/dL Normal 08-13-2019 [facility] (66443) Comment: Result Comment: The [place] Diabetes Association (ADA) provides guidance for cutoff values for fasting glucose and random glucose. The ADA defines fasting as no caloric intake for at least 8 hours. Fas ting plasma glucose results between 100 to 125 mg/dL indicate increased risk for diabetes (prediabetes). Fasting plasma glucose resul ts greater than or equal to 126 mg/dL meet the criteria for diagnosis of diabetes. In the absence of unequivocal hyperglycemia, results should be confirmed by repeat testing. In a patient with classic s ymptoms of hyperglycemia or hyperglycemic crisis, random plasma glucose results greater than or equal to 200 mg/dL meet the criteria for diagnosis of diabetes. Reference: Standards of [facility] in Diabetes 2016, [place] Diabetes Association. Diabetes Care. 2016.39(Suppl 1). Potassium [Moles/Vol] 3.8 3.7-5.1 mmol/L Normal 08-13-20 19 [facility] (30292) Sodium [Moles/Vol] 135 136-144 mmol/L Low 08-13-2019 [facility] ([id number]) Urea nitrogen [Mass/Vol] 13 9-24 mg/dL Normal 08-13 [facility] (77861) pt ed on 2018-01-04 PT ED HNO ID: [id number]: Beth Malin 01-04-2018 [facility] (Rn) JILLIAN Barronervice: ([id number]) NursingAuthor Type: Registered NurseType: Patient EducationFiled: 01/04/2018 3:03 PMNote Text:POST OP LEARNING RESPONSEINSTRUCTION PROVIDED TO: Patient and Family memberMETHOD OF INSTRUCTION: Written instruction - handoutsVerbal instructionPATIENT / FAMILY RESPONSE: Information received as demonstrated byinterest and questionsFOLLOW-UP PLAN: Patient instructed to call with any further issuesSUPPLEMENTAL MATERIAL: NoneREFERRAL (RECOMMENDATION): NoneElectronically Signed By: Beth Barron RN [facility] HNO ID: [id number]: Pepper Malin 01-04-2018 [facility] (Rn) JILLIAN Becerraervice: (none)Author ([id number]) Type: Registered NurseType: Patient EducationFiled: 01/04/2018 10:07 AMNote Text:PRE OP LEARNING ASSESSMENTPROCEDURE/SURGERY: SURGERY: Right Hernia RepairREADINESS TO LEARNCOGNITIVE ABILITY: Alert and orientedMOTIVATION TO LEARN: EagerInterestedFAMILY SUPPORT: High - Very involved in pt carePATIENT LEARNS BEST BY: Verbal InstructionFACTORS AFFECTING LEARNING: Other AnxietyPHYSICAL LIMITATIONS AFFECTING LEARNING: NoneElectronically Signed By: Pepper Becerra RN In Department: [facility] plan of care on 06-29-07 PLAN OF CARE HNO ID: [id number]: Erica Perea lito 01-04-2018 [facility] Juan Francisco ([employer])Service: ([id number]) (none)Author Type: (none)Type: Plan of CareFiled: 01/04/2018 3:58 PMNote Text:CHARTER COORDINATOR BEDSIDE DELIVERY SURVEY1. Patient to use [facility] Bedside Delivery - YES2. If fax, patient would like us to fax prescriptions to Pharmacy [facility]choice a. Pharmacy: b. Location: c. Phone:3. Insurance card on file - YES4. Credit card for payment - YESPHARMACY BEDSIDE DELIVERY SERVICEPatient Name: Aaron DonatoMRN: [id number] marked outpatient medications were Filled at: [place] and delivered tothe patient's bedside to pharm p/uMedication ListSTART taking these medicationsX oxyCODONE-acetaminophen 5-325 mg tabletCommonly known as: PERCOCETTake 1 tablet by mouth four times daily as needed for Pain for up to 7days.CONTINUE taking these medications albuterol HFA 90 mcg/actuation inhalerCommonly known as: VENTOLIN HFAInhale 2 Puffs as instructed every 4 hours as needed.Erica Chicas ([employer])PAGER: [id number] 2017 3:58 PM operative no on 06-29-07 OPERATIVE NO HNO ID: [id number]: Mony lomeli 01-04-2018 [facility] Type: PhysicianType: Operative ([id number]) ReportFiled: 01/05/2018 7:21 PMNote Text:[facility]- Operative ReportAARON DONATO CDOB: 1955 AGE: 62 SEX: MMRN: [id number] ACCTNUM: [id number] SVC: GENS LOCATION: [id number] PHYSICIAN: MONY FRASERANDATE OF PROCEDURE: 01/04/2018SURGEON: Mony Knox M.D.ASSOCIATE BUSINESS ANALYST: NONEANESTHESIA:PREOPERATIVE DIAGNOSIS(ES): Right inguinal hernia.POSTOPERATIVE DIAGNOSIS(ES): Large direct right inguinal hernia.NAME OF OPERATION: Right inguinal hernia repair performed in a Eren'srepair fashion using a Bard, larger preshaped flat mesh reference#[id number], lot number [id number], expires 08/25/2021.INDICATIONS:ESTIMATED BLOOD LOSS: 10 cc.COMPLICATIONS: None.SPECIMENS: None.DRAINS: None.URINE OUTPUT: No catheter.LOG ID NUMBER: [id number].START TIME: 1244.END TIME: 1342.ANESTHESIOLOGIST: Dr. Angel.ASA: 2.IV FLUIDS: 1400 cc.DISPOSITION: Patient taken to PACU in stable condition.FINDINGS: As described above.PROCEDURE: The patient's right inguinal area was marked in the holdingarea. The patient concurred this planned operative site. He was broughtto the operative suite and sign-in was performed verifying patient, site,procedure, position, critical nursing, VTE, and antibiotic prophylaxis.The patient received 600 mg of clindamycin due to penicillin allergy.Following IV sedation, the right inguinal region was prepped and drapedin usual fashion. Time-out was performed verifying patient, site,procedure, position. Local anesthetic 50:50 mixture of lidocaine andMarcaine was injected anterior to the iliac spine for regional block andalong the planned course of the skin incision. The incision was made,dissection carried down to the subcutaneous fat. Traversing veinsligated with 3-0 Polysorb ties. Dissection carried down to the externaloblique aponeurosis. Local anesthetic injected in the canal. The fiberswere up in the direction. The spermatic cord and large hernia sac wereturned at the level of the pubic tubercle brought up to the operativefield. The ilioinguinal nerve was running along the course of thespermatic cord. This was left along the spermatic cord during the entirecase. The spermatic cord was dissected off the large direct defect.There was no indirect defect noted. Following this, the large directdefect was inverted and imbricated to allow this to stay reduced whilethe onlay mesh was placed. Eren's ligament was easily palpable andtherefore the large Bard keyhole shaped mesh was secured at the pubictubercle with an 0 Surgipro suture running to Eren's ligamenttransitioning to the ilioinguinal ligament and Eren's ligament typerepair for the inferior leaf, then to the transversus arch for thesuperior leaf. The 2 tails were wrapped around the spermatic cord andclosed with a running 0 Surgipro suture. The 2 tails were then placed insuperior lateral external oblique aponeurosis. The external obliqueaponeurosis was closed with running 3-0 Polysorb sutures. Subcutaneousfat with 3-0 Polysorb sutures. Skin was closed with 4-0 Biosynsubcuticular suture. Steri-Strips dressing were applied. The patienttolerated procedure well and was brought to recovery room in stablecondition.Mony Knox M.D.General SurgeryRG:[id number]: 01/04/2018 13:49:27T: 01/05/2018 00:12:46Job #: [id number] history physical on 2018-01-04 HISTORY HNO ID: [id number]: Mony harvey 01-04-2018 [place] [facility]manService: [facility] Type: PhysicianType: HANDPFiled: ([id number]) 01/04/2018 11:51 AMNote Text:HISTORY AND PHYSICAL?Aaron Luna 1955?REFERRING PHYSICIAN: Mat Sanchez MD?CHIEF COMPLAINT: colon screening and hernia consult?HPI: The patient is a 62 year old male referred for endoscopy. Dennisnotes no history of colon complaints.?The patient notes no history of upper GI complaints.?Aaron has not undergone prior endoscopy. It was recommended he have acolonoscopy. He is currently ready to consider screening colonoscopy.?The patient also has a known right inguinal hernia. He states it iscausing him no true discomfort. He is still smoking cigarettes but heplans to stop in the very near future given a diagnosis of COPD onpulmonary function test this morning with an FEV1 of 1.38 L or 41%predicted value.?I performed colonoscopy on November 01, 2017. He had a small polyp -adenomatous - recommended 5 year follow up. He had no significant issueswith hypoxia during conscious sedation.?He quit smoking in September. He is ready for his hernia repair.??? PAST?MEDICAL?HISTORYPAST MEDICAL HISTORYDiagnosis Date- Anemia 08/24/2017- Bronchitis with airway obstruction (HCC) 08/24/2017- COPD (chronic obstructive pulmonary disease) (HCC) ?- Tobacco use disorder, continuous 08/24/2017?? PAST?SURGICAL?HISTORYPAST SURGICAL HISTORYProcedure Laterality Date- COLONOSCOP W/ OR W/O BRSH SPEC ? 11/01/2017? Colonoscopy - small adenomatous polyp-5 year follow-up- EXPLR PATELLAR TENDON Right 2005? Dr. Eller.- ROTATOR CUFF REPAIR Right 11/2013? Dr. Eller??? 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 ? head and neck- Obesity Sister ?- Coronary Artery Disease Brother ?? ? MS- None Brother ?- None Brother ?- None Brother ???REVIEW OF SYMPTOMS: The review of systems data was entered by the nurse and reviewed by me?REVIEW OF SYSTEMS:?General:???The patient denies fatigue, denies weight loss, deniesweight gain, denies feeling hot, and denies feelings of cold.?Eyes: ?The patient denies glaucoma, denies eye injury/surgery, wearsglasses or contacts.?Ear/Nose/Throat: ?The patient denies allergies, denies hayfever,denies ear infections, and denies bloody noses.?Cardiovascular: ?The patient denies chest pain, denies heart disease,denies high blood pressure,denies cardiac stent, denies prior heartattack, denies irregular heart beat, denies high cholesterol, ?denies poorcirculation, denies heart failure, other cardiac issues, deniesclaudication, denies cold feet, denies peripheral arterial stent.?Respiratory: ?The patient denies tuberculosis, denies pneumonia,denies frequent cough, denies pulmonary embolism, denies shortness ofbreath, and denies coughing up blood NOTES other lung problems?Gastrointestinal: ?The patient denies difficulty swallowing, deniesacid reflux, denies ulcers, denies vomiting, denies jaundice/hepatitis,denies gallbladder problems, denies black or tarry stools, denieshemorrhoids, denies bleeding from rectum, denies diverticulitis, deniesconstipation, denies diarrhea, denies loss of stool control, and denieshernias.?Kidney/Bladder: ?The patient denies kidney stones, denies urineinfections, and denies bloody urine.?Skin: ?The patient denies a history of skin cancer, deniesbleeding/changing moles, and denies a history of skin rash.?Neurologic: ?The patient denies a history of epilepsy/convulsions,denies headaches, denies head/spinal injuries, and denies stroke/TIA.?Psychiatric: ?The patient denies psychiatric medications, deniesdepression, and denies voices, denies substance abuse.?Endocrine: ?The patient denies thyroid disorders, denies diabetes,and denies hormonal problems.?Hematologic: ?The patient denies a history of bruising, deniesbleeding, and denies anemia, denies blood clots.?Infections: ?The patient NOTES a history of measles and mumps, deniesrheumatic fever, and denies sexually transmitted diseases.?Musculoskeletal: ?The patient denies back pain/injury, denies backproblems, denies sciatica, NOTES knee/foot trouble, denies arthritis, ordenies gout.??PHYSICAL EXAMINATION:?General: The patient is 62 year old male, well nourished, well hydratedin no acute distress. The patient is oriented to time, place, and person.?VITALS: Blood pressure 140/84, pulse (!) 54, weight 88.4 kg (194 lb 12.8oz). Body mass index is 29.62 kg/(m2).?HEENT: Normal cephalic, ataumatic, pupils are equally round, sclera areanicteric, mucous membranes are moist, oropharynx is clear. Neck has nomasses, asymmetry or lymphadenopathy. Thyroid is unremarkable.?Respiratory: Clear to auscultation and percussion. Normal respiratoryexcursion and pattern.?Cardiac: Examination is regular rate and rhythm.?Abdominal exam: Soft, nontender, with no palpable masses. Nohepatosplenomegaly. A palpable and reducible right inguinal hernia, noleft inguinal or umbilical hernias are noted?Rectal exam: exam deferred?Extremities: no clubbing, cyanosis or edema. No adenopathy.?Other:?LABORATORY VALUES: As Noted?RADIOLOGIC STUDIES: As Noted?AssessmentIMPRESSION: Need for screening colonoscopy, right inguinal hernia, tobaccouse?PLAN: I plan to perform an open right inguinal hernia repair with mesh.The planned surgical procedure was discussed extensively with the patient.The risks, benefits and anticipated outcomes of the procedure, the risksand benefits of the alternatives to the procedure, and the roles and tasksof the personnel to be involved, were discussed with the patient. Connie has also explained the procedure in understandable terms and thepatient was given the option to take printed material concerning theplanned procedure. The patient had the opportunity to ask questionsconcerning the planned procedure. The patient freely consents to theplanned procedure.?Anticipated Surgical Procedure/ CPT Code: open right inguinal herniarepair with mesh - 79282-806?Anticipated Anesthetic: MAC with local?Patient weight: Blood pressure 140/84, pulse (!) 54, weight 88.4 kg (194lb 12.8 oz). BMI: Body mass index is 29.62 kg/(m2).?Planned antibiotic: clindamycin 600mg IVPB telecommunications engineer to OR?SCDs needed - Yes?Director Call Center Sales Needed - Yes?Diagnoses: (K40.90) Right inguinal hernia (primary encounter diagnosis)?Return to Clinic: The patient is instructed to follow-up with me after thetesting has been completed.? ___Mony Knox MD brief op not on 201 06-29-07 BRIEF OP NOT HNO ID: [id number]: Mony lomeli 01-04-2018 [facility] Type: PhysicianType: Brief Op ([id number]) NoteFiled: 01/04/2018 1:49 PMNote Text:BRIEF OPERATIVE NOTATION FOR SURGICAL PROCEDURE.Aaron Donato 1955 [id number] maleLOG ID: [id number]/Procedure Date: 01/04/2018Incision/Procedure Start Time: 12:44 PMIncision Close/Procedure End Time: 1342Surgeon(s)/Proceduralist(s) and Director Call Center Sales(s):Surgeon(s) and Role: * Mony Knox - PrimaryPhysician Director Call Center Sales: Angela Meza (Pa) PHYSICIAN:OutpatientDEPT: CAL PROVIDER: Mary Ann POS:[id number]: Monitored Anesthesia CareASA CLASS: 2 - mildDIAGNOSIS: right inguinal herniaPROCEDURE: open right inguinal hernia repair with mesh - [id number]: 1400EBL: 10Specimens: noneADDITIONAL DIAGNOSES:FINDINGS: large direct - Coopers repairCOMPLICATIONS: NonePMHx -PAST MEDICAL HISTORYDiagnosis Date- Anemia 08/24/2017- Bronchitis with airway obstruction (HCC) 08/24/2017- COPD (chronic obstructive pulmonary disease) (HCC)- Pure hypercholesterolemia 01/01/2018- Tobacco use disorder, continuous 08/24/2017COMORBIDITIES - COPDPost Op Occurrences - NoneWound Classification - CleanOperative note dictated in the dictation system. - [id number] Knox MD anes preop on 01-04 ANES PREOP HNO ID: [id number]: Mina Normal [facility]-04-2018 [facility] Type: AnesthesiologistType: Anesthesia ([id number]) PreOpFiled: 01/04/2018 11:02 AMNote Text: ANESTHESIOLOGY DAY OF SURGERY NOTESERVICE DATE: 01/04/2018SERVICE TIME: 11:02 AMDOB: 1955Procedure(s) (LRB):HERNIORRHAPHY INGUINAL INITIAL HERNIA >5 YRS REDUCIBLE (ELECTIVE) (Right)Surgeon(s):Mony T GuttmanEstimated body mass index is 27.84 kg/(m2) as calculated from thefollowing: Height as of this encounter: 177.8 cm (5' 10). Weight as of this encounter: 88 kg (194 lb).Most recent hematocrit and potassium results:Hematocrit 41.2 12/30/2017Potassium 4.5 12/30/2017ANES DOS/PREOP NOTE: Vitals: 004BP: 148/96Pulse: (!) 58Resp: 18Temp: 36.2 ?C (97.2 ?F)TempSrc: Temporal ArterySpO2: 100%Weight: 88 kg (194 lb)Height: 177.8 cm (5' 10)ACTIVE PROBLEM LISTBronchitis With Airway Obstruction (Hcc)AnemiaInguinal HerniaPure HypercholesterolemiaKidney InsufficiencyPAST MEDICAL HISTORYDiagnosis Date- Anemia 08/24/2017- Bronchitis with airway obstruction (HCC) 08/24/2017- COPD (chronic obstructive pulmonary disease) (HCC)- Pure hypercholesterolemia 01/01/2018- Tobacco use disorder, continuous 08/24/2017PAST SURGICAL HISTORYProcedure Laterality Date- COLONOSCOP W/ OR W/O BRSH SPEC 11/01/2017 Colonoscopy - small adenomatous polyp-5 year follow-up- EXPLR PATELLAR TENDON Right 2005 Dr. Eller.- PAST SURGICAL HISTORY OF Bilateral foot surgery- ROTATOR CUFF REPAIR Right 11/2013 Dr. EllerFAMILY HISTORYProblem Relation Age of Onset- Heart Failure Mother- Kidney Disease Mother- COPD Father- Cancer Father head and neck- Obesity Sister- Coronary Artery Disease Brother MS- None Brother- None Brother- None BrotherSocial History:Social HistorySubstance Use Topics- Smoking status: Former Smoker Packs/day: 1.00 Years: 40.00 Start date: 05/28/1977 Quit date: 10/09/2017- Smokeless tobacco: Former User Quit date: 10/02/2017- Alcohol use Yes Comment: occasionalNo current facility-administered medications on file prior to encounter.No current outpatient prescriptions on file prior to encounter.Current Facility-Administered Medications:lactated ringers infusion 30 mL/hr INTRAVENOUS CONTINUOUS Mony TGuttman Last Rate: 30 mL/hr at 01/04/18 1007 30 mL/hr at 01/04/18 1007clindamycin 600 mg in D5W 50 mL (CLEOCIN) 600 mg INTRAVENOUS Pre-Op OnceRichard T GuttmanAllergies:ALLERGIESAllergen Reactions- Penicillin HivesDOS EXAM: Adequate NPO status: YesAnesthetic risks, benefits, alternatives, personnel and consent discussed:YesPatient agrees to proceed: YesPrevious Anesthesia: No history of adverse event.Airway Assessment: MP 2; Neck ROM: Full ROM without neurologic symptoms;Airway Evaluation: No significant abnormalitiesSymptoms of Sleep Apnea: NoneDentition: intactAdditional Physical Exam:Lungs: Patient health status unchanged since recent history and physical.See history and physical for exam findings.Cardiac: Patient health status unchanged since recent history andphysical. See history and physical for exam findings.Additional Pertinent Findings: N/ABlood Products: Not anticipated for this procedure.Anesthetic Plan: MAC with SedationPain Management Plan: Parenteral or OralASA Class: 2Other Medical Problems: copdI have interviewed and examined the patient. I have reviewed the medicalrecord and/or the pre-anesthesia evaluation, pertinent labs, and testresults.Significant changes in the patient's condition since the History andPhysical, not otherwise documented in primary service progress notes: NoThis contains updated information obtained within 48 hours ofSurgery/Procedure.SIGNATURE: Mina Franklin MD PATIENT NAME: Aaron DonatoDATE: January 04, 2018 : 11:02 AM CSN: [id number] anes post on 07 ANES POST HNO ID: [id number]: Rustam Malin 01-04-2018 [facility] VincentService: ([phone]) AnesthesiologyAuthor Type: AnesthesiologistType: Anesthesia PostOpFiled: 01/04/2018 3:15 PMNote Text:POST ANESTHESIA EVALUATION NOTESERVICE DATE: 01/04/2018SERVICE TIME: 3.15DOB: 1955Vitals: 01/04/1813Temp: 36.2 ?C (97.2 ?F) 36.3 ?C (97.3 ?F) 36.4 ?C (97.5 ?F) 01/04/1814/734097ZP: 131/89 150/79 146/70 151/76 01/04/1814Pulse: (!) 55 (!) 56 60 61 01/04/1814Resp: 18 17 18 20 01/04/1814SpO2: 99% 99% 98% 99%Validated Vital Signs: YesPOST ANES STATUS: No apparent anesthetic complications. The patient isappropriately hydrated with stable respiratory and cardiovascular status.Patient has safe and adequate airway control. The patient has appropriatepain relief and no significant post operative nausea or vomiting. Thepatient has achieved baseline mental status.Further assessment by Anesthesia Service: NoneOther Remarks:SIGNATURE: Rustam Angel MD PATIENT NAME: Aaron DonatoDATE: January 04, 2018 : 3:15 PM PAGER/CONTACT #: ANESRTHESIA nursing prog on 06-29-05 NURSING PROG HNO ID: [id number]: Codie Malin 01-02-2018 Lydia (Rn) JILLIAN Gagnonervice: Hospital (none)Author Type: Registered ([id number]) NurseType: Nursing Progress NoteFiled: 01/02/2018 4:25 PMNote Text:PACC Nurse Progress NoteHistory AND Physical:PACC Visit Date: 12/30/2017Labs Within Last 6 Months:12/30/2017 CMP (creatinine 1.33) CBCLabs reviewed in [facility] Within acceptable limits per anesthesia guidelines.Imaging Within Last 12 Months:N/ACardiac Testing:EKG in last 12 Months: Yes: Date: 09/23/2017, Comment: SB cynthia completeRight BBB, rate 59Risk Assessment:No new consults ordred.Anesthesia Review:DOSNarrative:N/APre-op Considerations:COPD uses inhalerChart Check:Jessa Gagnon[facility] hosp on 2017-12-29 HOSP Patient:Aaron Donato CMRN: Height:5' Normal 12-29-2017 [facility] 10(1.778 m)Weight:194 lb (87.998 (79514) kg)Outpatient Medications as of 01/04/18:albuterol HFA (VENTOLIN HFA) 90 mcg/actuation inhalerAdmission/Clinic Administered Medications as of 01/04/18:lactated ringers infusionclindamycin 600 mg in D5W 50 mL (CLEOCIN)Problem List:Bronchitis with airway obstruction (HCC) [J44.9]Anemia [D64.9]Inguinal hernia [K40.90]Pure hypercholesterolemia [E78.00]Kidney insufficiency [N28.9]Allergies:PenicillinDate Verified: 01/04/18Lab ValuesLab Value Units Date High LowPOTA* 4.5 mmol/L 12/30/2017 5.1 3.7HEMA* 41.2 % 12/30/2017 51.0 39.0Progress Notes ([facility]):Jena Zelaya Cma 01/02/2018 1:05 PM Signed----- Message from Mat Sanchez sent at 01/01/2018 3:33 PM EST -----Hyperlipidemia. Kidney insufficiency. Mild anemia. Urinalysis with microscopy.Repeat BMP, SPEP, CBC, B12, ultrasensitive CRP in one month with a sooner followup appointment. Low cholesterol diet.Jena Zelaya Cma 01/02/2018 1:09 PM SignedLeft message for patient to call office back and to ask to speak with a nurse.Jena Dewey RN 01/03/2018 3:41 PM SignedPatient notified and one month follow up scheduled.Please file pended lab orders.Beth Dewey RNProgress Notes ([facility]):Mat Sanchez MD 12/30/2017 8:52 AM SignedDO FASTING LABS TODAY.Mat Sanchez MD 12/30/2017 9:17 AM SignedThis note was created using NoteWriter.Geremias Donato is a 62 year old male here for follow up. He stopped smokingNovember, and was doing much better. He had not needed albuterol. 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 Negative for shortness of breath and wheezing.Cardiovascular: Negative.ObjectiveBP 124/74 (BP Site: Left Arm, BP Position: Sitting, BP Cuff Size: Large Adult) Pulse 60 Resp 18 Wt 88 kg (194 lb) SpO2 94% BMI 29.5 kg/u3Bgawrumb ExamConstitutional: No distress.HENT:Hard or hearing.Cardiovascular: Normal heart sounds.Pulmonary/Chest: No respiratory distress. He has wheezes. He has no rales.Occasional wheeze, right lung base.Musculoskeletal: He exhibits no edema.ASSESSMENT/PLAN:1. Bronchitis with airway obstruction (HCC) - ICD9: 491.20, ICD10: J44.9(primary diagnosis)PFT results reviewed.2. Anemia, unspecified type - ICD9: 285.9, ICD10: D64.9Recheck.3. Hypoxemia - ICD9: 799.02, ICD10: R09.02Resolved.4. Tobacco use disorder, continuous - ICD9: 305.1, ICD10: F17.209Congratulated on cessation. Encouraged continued abstinence.5. Reducible right inguinal hernia - ICD9: 550.90, ICD10: K40.90For surgery.6. Need for vaccination - ICD9: V05.9, ICD10: Z23- TDAP VACCINE AGE 7+ Ela Sanchez MD Encounters Date Type Reason Provider Location 01-04-2018 - Ambulatory [facility] 01-04-2018 [facility] ([id number]) 06-19-2020 - [facility] 06-19-2020 visit by physician Plan of Treatment Plan Description Date Location DTAP,TDAP,TD (2 - Td) DTAP,TDAP,TD (2 - Td) 12-30-2027 [facility] ([id number]) DIABETES SCREEN DIABETES SCREEN 06-19-2023 [facility] ([id number]) LIPID SCREEN LIPID SCREEN 12-30-2022 [facility] ([id number]) PROSTATE CANCER SCREENING PROSTATE CANCER SCREENING 12-30-2022 [facility] DISCUSSION DISCUSSION (31175) COLORECTAL CANCER COLORECTAL CANCER 11-01-2022 [facility] in[facility] SCREENING,SEE MODIFIER SCREENING,SEE MODIFIER ([phone]) SERUM CREATININE SERUM CREATININE 06-19-2021 [facility] ([id number]) INFLUENZA (#1) INFLUENZA (#1) 2020 [facility] ([id number]) ANNUAL PCP TEAM CHRONIC ANNUAL PCP TEAM CHRONIC 08-09-2019 [facility] DISEASE VISIT DISEASE VISIT (75958) LUNG CANCER SCREENING LUNG CANCER SCREENING 2012 [facility] (92152) SHINGRIX VACCINE (1 of 2) SHINGRIX VACCINE (1 of 2) 2007 [facility] (26131) HIV SCREENING HIV SCREENING 1975 [facility] (82056) no information [facility] ([id number]) Immunizations Vaccine Notes Status Date Location Influenza Seasonal influenza, seasonal, (completed) 09-13-2017 [facility] Inj Age 3+ injectable (63735) Pneumovax pneumococcal (completed) 09-27-2017 [facility] polysaccharide vaccine, (441 95) 23 valent Tdap (Age 7+) tetanus toxoid, reduced (completed) 12-30-2017 [facility] diphtheria toxoid, and (4419 5) acellular pertussis vaccine, adsorbed Payers Payer Name Policy Number Location AISSATOU [id number] [facility] (44 195) The following information is from the original human readable contentNo Payer Records FoundNo Payer Records FoundNo Payer Records Found Social History Type Social History Date Location Description Tobacco smoking status Former smoker 12-27-2019 [facility] ([id number]) History of tobacco use Current smoker 05-28-1977 - [facility] 10-09-2017 (83064) History of tobacco use Cigarette Smoker 05-28-1977 - [facility] 10-09-2017 (53845) Cigarettes smoked 12-27-2019 - [facility] ic current (pack per day) 12-27-2019 (33274) - Reported Tobacco use and Never used 12-27-2019 [facility] exposure (34615) Alcohol intake Current drinker of 12-27-2019 [facility] alcohol (finding) (22745) Alcohol Comment occasional - once every 09-14-2019 [facility] few months. Denies heavy (94390) drinking in the past. Sex Assigned At Male [facility] (12605) Exposure to SARS-CoV-2 Not sure [facility] (event) ([id number]) The following information is from the original human readable contentNo Social History Records FoundNo Social History Records FoundNo Social History Records Found Medical Equipment Equipment Code (if Equipment Original Equipment Procedure Code ( if Dates provided) Text (if provided) Identifier (if provided) provided) [place] [id number] 01-04-2018 W/Keyhole 6x13.7cm - [id number] Summary Purpose Family History No Family History Records FoundNo Family History Records Found Advance Directives Documents on File Type Date Recorded 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 on Advance Directive(s) 11/01/2017 8:02 AM Advance Directive(s) 11/01/2017 6:00 AM Advance Directive(s) 01/04/2018 9:52 AM History of Past Illness Problem Noted Date Resolved Date Kidney insufficiency 01/01/2018 08/09/2018 Inguinal hernia 12/29/2017 02/01/2018 Overview: Added automatically from request for bernarda junie [id number] Reducible right inguinal hernia 09/27/2017 12/30/19 18 Hypoxemia 08/24/2017 12/30/2017 Tobacco use disorder, continuous 08/24/2017 018 Additional Source Comments FOR RECORDS PERTAINING TO PATIENTS WHO ARE OR HAVE BEEN ENROLLED IN A CHEMICAL DEPENDENCY/SUBSTANCE ABUSE PROGRAM, SOME INFORMATION MAY BE OMITTED. This clinical summary was aggregated from multiple sources. Caution should be exercised in using it in the provision of clinical care. This summary normalizes information from multiple sources, and as a consequence, information in this document may materially changethe coding, format and clinical context of patient data. In addition, data may be omittedin some cases. CLINICAL DECISIONS SHOULD BE BASED ON THE PRIMARY CLINICAL RECORDS. [facility] provides no warranty or guarantee of the accuracy or completeness of information in this document. UNRECOGNIZED CONTENT PROVIDED BELOW FOR UNRECOGNIZED SECTION No Status Records FoundNo Status Records Found UNRECOGNIZED CONTENT PROVIDED BELOW FOR UNRECOGNIZED SECTION INFORMATION SOURCE DATE CREATED AUTHOR AUTHOR'S ORGANIZATIO N 05/22/2018 [facility] DATE CREATED AUTHOR AUTHOR'S ORGANIZATIO N 06/26/2020 [facility] UNRECOGNIZED CONTENT PROVIDED BELOW FOR UNRECOGNIZED SECTION Source Comments In the event this information is protected by the Federal Confidentiality of Alcohol and Drug Abuse Patient Records regulations: The Federal rules restrict any use of the information to criminally investigate or prosecute any alcohol or drug abuse patient.[facility]
== END ==
PROVIDERS: Visit Provider Urology
DX: R82.998 Other abnormal findings in urine (principal)
CPT/HCPCS: 87077; 87086; 87088; 87186

== ENCOUNTER → 2020-05-29 08:10 | Outpatient (CLI) | payer BC, SELFPAY ==
[2020-02-13 15:03] VITALS: BMI 28.0
== END ==
PROVIDERS: Visit Provider Family Medicine
DX: Z00.00 Encounter for general adult medical examination without abnormal findings (principal)

== ENCOUNTER → 2020-06-05 08:59 | Outpatient (CLI) | payer BC, SELFPAY ==
[2020-02-13 15:03] VITALS: BMI 28.0
[2020-06-05 10:37] LABS: AST(SGOT) 14 U/L (15-37); Alanine Aminotransfer ALT/SGPT 19 U/L (16-61); Albumin, Serum 3.7 g/dL (3.2-5.0); Alkaline Phosphatase 83 U/L (45-117); Anion Gap 7 (5-15); BUN 17 mg/dL (7-18); BUN/Creat Ratio 18.7 RATIO (10-20); Calcium,Total 8.9 mg/dL (8.5-10.1); Chloride 105 mmol/L (98-107); Creatinine, Serum 0.91 mg/dL (0.70-1.30); EST Glomerular Filtration Rate 89 mL/min (>60); Est Glom Filt Rate - Afr Amer 108 mL/min (>60); Globulin 3.6 g/dL (2.2-4.2); Glucose 96 mg/dL (74-106); Potassium 4.1 mmol/L (3.5-5.1); Protein, Total 7.3 g/dL (6.4-8.2); Sodium Level 140 mmol/L (136-145); T4 Free Direct 1.38 ng/dL (0.76-1.46); Thyroid Stim Hormone (TSH) 1.19 uIU/mL (0.358-3.74)
== END ==
PROVIDERS: PCP Family Medicine; Referring Provider Family Medicine; Visit Provider Family Medicine
DX: E03.8 Other specified hypothyroidism (principal)
CPT/HCPCS: 36415; 80053; 84439; 84443

== ENCOUNTER → 2020-06-12 07:57 | Outpatient (CLI) | payer BC, SELFPAY ==
[2020-02-13 15:03] VITALS: BMI 28.0
--- NOTE | 2020-06-12 08:08 | CT_ITS ---
STUDY: LOW DOSE CT LUNG CANCER SCREENING REASON FOR EXAM: Male, 65 years old. Patient has 40yr 1ppd smoking history. Quit in 2017. Bilateral retroareolar masses on previous mammogram 01/2020. ? Cancer RADIATION DOSAGE (If Supplied By Facility): CTDIvol = ( 17.08 ) mGy, DLP = ( 1350.57 ) mGycm TECHNIQUE: No contrast was administered. Low dose technique was utilized (average mAS-38 and kVp 120). 1.25 mm axial source images with a slice interval of 1.25-mm were reconstructed in lung windows. 2.5 mm axial source images with a slice interval of 2.5-mm were reconstructed in lung windows. 5.0 mm axial source images with a slice interval of 5.0-mm were reconstructed in soft tissue windows. Nodule measured using lung windows on PACS and/or independent workstation with automated measurement of minimum and maximum diameter. Nodule measurement reported as average diameter rounded to the nearest whole number. Growth is defined as an increase ins size of greater than 1.5 mm. COMPARISON: None. NODULES: No suspicious nodules are seen. Emphysema: Diffuse emphysematous changes with bullous formation more prominent in the upper lobes. Aorta: Mild atherosclerotic plaque formation of the aortic arch. Coronary arteries: Coronary artery calcification. Heart: Unremarkable. Mediastinal nodes: Small benign-appearing mediastinal lymph nodes. Other chest and abdominal findings: Degenerative changes of the thoracic spine. CT/Low Dose CT Lung Screening IMPRESSION: Lung-RADS category 2 - Continue annual screening with LDCT in 12 months. IMPORTANT NOTES FOR USE: ACR Lung-RADS Version 1.0 Assessment Categories Release Date: March 25, 2014 Category: Coded 0-4 bases on nodule(s) with highest degree of suspicion. Negative screen is defined as categories 1 and 2; a positive screen is defined as categories 3 and 4. Category 3 and 4A nodules that are unchanged on interval CT should be coded as category 2, and individuals returned to screening in 12 months. Category 4X: Category 3 or 4 nodules with additional imaging findings that increase the suspicion of lung cancer, such as spiculation, GGN that doubles in size in 1 year, enlarged lymph notes, etc. Category Modifiers: S (significant finding unrelated to lung cancer) and C (prior history of treated lung cancer) may be added to the 0-4 Lung-RADS Electronically Signed: Steve Rowell, at 12:19 EDT , Service support ,
== END ==
PROVIDERS: PCP Family Medicine; Referring Provider Family Medicine; Visit Provider Family Medicine
DX: Z12.2 Encounter for screening for malignant neoplasm of respiratory organs (principal); Z87.891 Personal history of nicotine dependence
CPT/HCPCS: G0297

== ENCOUNTER → 2020-08-08 08:12 | Outpatient (CLI) | payer BC, SELFPAY ==
[2020-02-13 15:03] VITALS: BMI 28.0
[2020-08-08 08:26] LABS: Mucous, Urine 0 SEEN /hpf (<or=2+); Squamous Epithelial Cells - UA 0 SEEN /hpf (0-5)
[2020-08-08 09:08] LABS: Anion Gap 9 (5-15); BUN 15 mg/dL (7-18); BUN/Creat Ratio 15.4 RATIO (10-20); Chloride 101 mmol/L (98-107); Color, Urine Yellow (Yellow); Creatinine, Serum 0.98 mg/dL (0.70-1.30); EST Glomerular Filtration Rate 82 mL/min (>60); Est Glom Filt Rate - Afr Amer 100 mL/min (>60); Glucose 100 mg/dL (74-106); Glucose, Dipstick Normal (Normal); Ketone-Dipstick Negative (Negative); Leukocyte Esterase-Dipstick 500 /ul (Negative); Nitrite-Dipstick Negative (Negative); Occult Blood-Urine 25 /ul (Negative); Potassium 3.5 mmol/L (3.5-5.1); Protein-Dipstick Negative (Negative); Sodium Level 138 mmol/L (136-145); Urine Bilirubin Dipstick Negative (Negative); Urine Clarity Sl. Cloudy (Clear); Urine Urobilinogen Normal (Normal)
[2020-08-08 09:17] LABS: Bacteria 1+ /hpf (None Seen); Red Blood Cells-Urine 0-5 SEEN /hpf (0-5); White Blood Cells 25-50 SEEN /hpf (0-5)
[2020-08-08 09:24] LABS: Protein, Urine (Random) < 6.0 mg/dL (<11.9)
== END ==
PROVIDERS: PCP Family Medicine; Referring Provider Internal Medicine; Visit Provider Internal Medicine
DX: N18.2 Chronic kidney disease, stage 2 (mild) (principal); R80.9 Proteinuria, unspecified
CPT/HCPCS: 36415; 80048; 81001; 82570; 84156

== ENCOUNTER → 2020-09-30 08:19 | Outpatient (CLI) | payer BC, SELFPAY ==
[2020-02-13 15:03] VITALS: BMI 28.0
[2020-09-30 09:47] LABS: Absolute Lymphocyte Count 2.21 X10^3/uL (0.83-4.51); Absolute Neutrophil Count 4.1 X10^3/uL (2.0-7.7); Basophil# 0.03 X10^3/uL; Basophil% 0.4 % (0-1); Eosinophil# 0.15 X10^3/uL; Hematocrit 41.6 % (40-54); Hemoglobin 13.3 g/dL (13.0-16.5); Lymphocyte # 2.21 X10^3/ul (4.0); Mean Corpuscular Hgb 31.7 pg (27.0-32.0); Mean Corpuscular Volume 99.3 fL (80-94); Mean Platelet Vol. 10.2 fl (6.2-12.0); Monocyte# 0.87 X10^3/uL; Monocyte% 11.8 % (0-10); NRBC Flagged by Analyzer 0 % (0-5); Neutrophil # 4.09 X10^3/uL (2.7-7.7); Neutrophil % 55.5 % (47-70); Platelet Count 222 K/mm3 (150-450); RBC Distribution Width CV 13.2 % (11.6-14.6); RBC Distribution Width SD 48.9 fl (35.1-43.9); Red Blood Count 4.19 M/mm3 (4.6-6.2); White Blood Count 7.4 K/mm3 (4.4-11.0)
[2020-09-30 10:22] LABS: Vitamin B12 383 pg/mL (211-911)
[2020-09-30 10:36] LABS: ALB/GLOB Ratio 1.1 RATIO (0.9-2.4); AST(SGOT) 22 U/L (15-37); Alanine Aminotransfer ALT/SGPT 22 U/L (16-61); Albumin, Serum 3.8 g/dL (3.2-5.0); Alkaline Phosphatase 88 U/L (45-117); Anion Gap 4 (5-15); BUN 14 mg/dL (7-18); BUN/Creat Ratio 15.1 RATIO (10-20); Chloride 102 mmol/L (98-107); Cholesterol 182 mg/dL (200); Creatinine, Serum 0.93 mg/dL (0.70-1.30); EST Glomerular Filtration Rate 88 mL/min (>60); Est Glom Filt Rate - Afr Amer 106 mL/min (>60); Globulin 3.6 g/dL (2.2-4.2); Glucose 87 mg/dL (74-106); High Density Lipoprotein 69 mg/dL; Potassium 4.2 mmol/L (3.5-5.1); Protein, Total 7.4 g/dL (6.4-8.2); Sodium Level 137 mmol/L (136-145); T4 Free Direct 1.33 ng/dL (0.76-1.46); Thyroid Stim Hormone (TSH) 1.36 uIU/mL (0.358-3.74); Triglycerides 94 mg/dL; Very Low Density Lipoprotein 19 mg/dL (5-40)
== END ==
PROVIDERS: PCP Family Medicine; Referring Provider Family Medicine; Visit Provider Family Medicine
DX: D53.9 Nutritional anemia, unspecified (principal); N18.30 Chronic kidney disease, stage 3 unspecified; E78.5 Hyperlipidemia, unspecified; E03.8 Other specified hypothyroidism; E55.9 Vitamin D deficiency, unspecified
CPT/HCPCS: 36415; 80053; 80061; 82306; 82607; 82746; 84439; 84443; 85025

== ENCOUNTER 2021-03-26 09:18 | Emergency (ER) | payer BC, SELFPAY ==
[2020-02-13 15:03] VITALS: BMI 28.0
[2021-03-26 09:20] VITALS: BP 141/71; PULSE 71; RESP 16; TEMP 36.3; O2SAT 98; BMI 29.3
--- NOTE | 2021-03-26 09:33 | VDUE_ITS ---
Reason For Study: Pain Left Proximal Left jugular vein is spontaneous, widely patent, phasic, with no intraluminal echogenicity noted. Left subclavian vein is spontaneous, widely patent, phasic, with no intraluminal echogenicity noted. Left Arm Left axillary vein is spontaneous, patent, phasic, competent, compressible and demonstrates augmentation. Left brachial vein is compressible. Left cephalic vein is compressible. Left basilic vein is compressible. Left Lower Arm Left radial vein is compressible. Left ulnar vein is compressible. Patient Safety Prelim to David. VL/Venous Duplex US, Unilateral Interpretation Summary No evidence for acute deep venous thrombosis[left] upper extremity with patent and compressible cephalic and basilic veins. Ordering Physician: Jean Hernandez Referring Physician: Sourav Giraldo Performed By: Grazyna Olson RVT ?
--- NOTE | 2021-03-26 09:33 | EKG12_ITS ---
Test Reason : PAIN UPPER Blood Pressure : / mmHG Vent. Rate : 068 BPM Atrial Rate : 068 BPM P-R Int : 148 ms QRS Dur : 128 ms QT Int : 430 ms P-R-T Axes : 072 051 047 degrees QTc Int : 457 ms Sinus rhythm with Premature supraventricular complexes Right bundle branch block Abnormal ECG Confirmed by JOVANY CHUNG, ELKIN ([id number]), business editor LILLY TOTH ([id number]) on 03/30/2021 10:09:52 AM Referred By: SOHAIL Confirmed By:ELKIN MANZO MD
--- NOTE | 2021-03-26 09:35 | EX.ED.UPPERE ---
HPI History of Present Illness Chief Complaint: Upper Extremity Injury Detail of Chief Complaint: Left shoulder and arm pain x4 days Informant: patient Onset/Context/Timing Timing: Continuous Current Severity: Moderate Narrative Narrative: Patient presents with discomfort in the left shoulder and left wrist that started 4 days ago. Patient states that initially 4 days ago he started with some discomfort in his neck so he went to the chiropractor and got adjusted. Since that time he is been having discomfort into the left shoulder and left arm. 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 Patient feels like the arm is swollen compared to the opposite side. He denies any trauma. Patient denies any significant chest discomfort although he does describe discomfort to the anterior shoulder area. Patient has not had recent illness. No history of PE or DVT. No cardiac history noted. PFSH [facility] Medical History (Updated 03/26/21 @ 12:[address] Jean Hernandez DO) HLD (hyperlipidemia) Kidney disease Masses of both breasts Home Medications tamsulosin 0.4 mg PO DAILY 05/29/19 [History Last Taken 05/29/19 08:00] ergocalciferol (vitamin D2) 50 mcg (2,000 unit) tablet 2,000 unit PO DAILY 02/13/20 [History Last Taken Unknown] levothyroxine 137 mcg capsule 137 mcg PO DAILY 02/13/20 [History Last Taken Unknown] valsartan 40 mg tablet 40 mg PO BID 02/13/20 [History Last Taken Unknown] hydrocodone-acetaminophen 1 tab PO Q6H PRN 3 Days #10 tab 03/26/21 [Rx Last Taken Unknown] Allergy/AdvReac Type Severity Reaction Status Date / Time rosuvastatin [From Crestor] Allergy Unknown Unknown Verified 02/13/20 15:01 Penicillins AdvReac Hives Verified 02/13/20 15:01 Surgical History History of bilateral breast biopsy (~01/2020) History of hernia repair History of knee surgery History of repair of rotator cuff Social History (Updated 02/13/20 @ 15:[address] Jeremiah Hilton MD) Smoking Status: Former smoker alcohol intake: current alcohol intake frequency: a few times a month ROS ROS ED Constitutional Constitutional ED: Reports systems reviewed and no addt'l complaints, except as documented; Denies body ache(s), change in weight or chills Eyes Eyes: Denies acute decrease in peripheral vision, change in vision, double vision or loss of vision ENT ENT ED: Reports none; Denies ear pain, lip swelling, loss taste/smell, neck pain, otalgia or sore throat Cardiovascular Cardiovascular: Reports none; Denies abdominal pain, chest pain with activity, leg edema, lightheadedness, palpitations, rapid heart rate or syncope Respiratory/Chest Respiratory/Chest: Reports none; Denies change in mental status, dry cough, dyspnea, hemoptysis, shortness of breath at rest or shortness of breath with exertion Gastrointestinal Gastrointestinal: Reports none; Denies abdominal pain, change in stool character, diarrhea, hematemesis, hematochezia, melena, rectal bleeding or vomiting Genitourinary Genitourinary ED: Reports none; Denies abdominal discomfort, anuria, dysuria, genital pain or polyuria Musculoskeletal Musculoskeletal: Reports none, extremity pain, joint pain, neck pain and radiating pain into limb; Denies arthralgias, back pain, difficulty walking, muscle weakness, myalgias or numbness Integumentary Reports none; Denies abscess or rash Neurologic Neurologic: Reports none; Denies abnormal gait, confusion, focal weakness, frequent falls, headache(s), loss of vision, numbness, paresthesias, radicular pain, vertigo or weakness Psychiatric Psychiatric: Reports systems reviewed and no addt'l complaints, except as documented and none; Denies behavioral changes, confusion, difficulty concentrating, hallucinations, suicidal ideation, tactile hallucinations or visual hallucinations Endocrine Endocrinology: Denies none, cold intolerance, excessive sweating, fatigue or heat intolerance Hematologic/Lymphatic Hematologic/Lymphatic: Reports none; Denies anemia, easy bleeding or easy bruising Allergic/Immunologic Allergic/Immunologic ED: Denies as per HPI, none, lip swelling, mouth swelling, throat swelling, tongue swelling or hives EXAM Physical Exam Const Vital Signs: 03/26/21 09:20 Temperature 97.4 F L Temperature Source Temporal Pulse Rate 71 Respiratory Rate 16 Blood Pressure 141/71 H Blood Pressure Mean 94 Pulse Ox 98 Oxygen Delivery Method Room Air Positive well nourished and well developed General Appearance ED: well developed and NAD HEENT Reports TM's clear and moist mucous membranes normocephalic and atraumatic; Negative for trauma or tenderness Tympanic Membrane ED: Yes TM's clear Eyes PERRL and EOMs intact bilaterally General Eye ED: Negative for pale conjunctiva or scleral icterus Neck no lymphadenopathy, supple and no JVD General: Negative for tenderness Chest Wall inspection of chest normal and palpation of chest normal Chest: Negative for tenderness Resp normal respiratory effort and clear to auscultation bilaterally Effort and Inspection: Negative for respiratory distress or pain with movement Auscultation: Negative for rhonchi, wheezes or diminished lung sounds Cardio regular rate, regular rhythm, S1 normal heart sound, S2 normal heart sound and no murmurs Peripheral Pulses: pulses 2+ throughout GI normal to inspection, nondistended, normoactive bowel sounds, soft to palpation, non-tender, non-distended and no masses Back/Spine no CVA tenderness and no thoracic nor lumbar tenderness Extremity normal to inspection, full ROM, normal capillary refill and no joint enlargement Extremity Narrative: No evidence of trauma to his upper extremity. Patient has some mild pain with range of motion at the left glenohumeral joint. Patient has some mild discomfort with flexion extension at the wrist. Patient has normal sensation diffusely. Patient has essentially normal strength. General Extremety ED: Negative for edema General Extremity: Negative for edema Neuro oriented x3, CN's II-XII intact bilaterally, no sensory deficits noted and gait normal Sensorium / Orientation: awake, alert, oriented to person, oriented to place and oriented to time Motor Exam: strength 5/5 throughout and strength abnormal Psych mental status grossly normal Skin no rashes or lesions noted and no wounds MDM MDM MDM Narrative Medical decision making narrative: Patient negative for DVT and negative for PE. I do not feel patient is having acute coronary syndrome. I suspect likely symptoms related to cervical radiculopathy versus musculoskeletal overuse type injury. 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 Patient advised to follow-up with his primary care physician as he may need further imaging such as MRI to evaluate further if symptoms do not improve. Patient will receive work restrictions. Lab Data Attestation: I reviewed the patient's lab results. Radiography Chest X-Ray - ED: 1 View, Read by ED Physician, Read by Radiologist and Normal EKG Initial EKG: Comments: Normal sinus rhythm with a ventricular rate of 68 bpm with occasional PACs noted. Patient was noted to have a right bundle branch block. Discharge Plan Triage Chief Complaint: Upper Extremity Injury ED Provider: Jean Hernandez Dx/Rx/DC Orders Clinical Impression: Radiculopathy affecting upper extremity Instructions: ED Radiculopathy, Cervical Prescriptions: New hydrocodone-acetaminophen 5-325 mg tablet 1 tab PO Q6H PRN (Reason: pain) 3 Days Qty: 10 RF: 0 No Action ergocalciferol (vitamin D2) 2,000 unit tablet 2,000 unit tablet 2,000 unit PO DAILY RF: 0 levothyroxine 137 mcg capsule 137 mcg capsule 137 mcg PO DAILY RF: 0 valsartan 40 mg tablet 40 mg PO BID RF: 0 tamsulosin 0.4 MG capsule 0.4 mg PO DAILY RF: 0 Stand Alone Forms: Work Status Form Primary Care Provider: Sourav Giraldo Referrals: Sourav Giraldo MD [Primary Care Provider] - 3-5 Days Disposition Disposition: Home, self care
[2021-03-26 09:49] LABS: Absolute Lymphocyte Count 1.88 X10^3/uL (0.83-4.51); Absolute Neutrophil Count 4.7 X10^3/uL (2.0-7.7); Basophil# 0.04 X10^3/uL; Basophil% 0.5 % (0-1); Eosinophil# 0.14 X10^3/uL; Eosinophils% 1.8 % (0-5); Hematocrit 39.4 % (40-54); Hemoglobin 12.8 g/dL (13.0-16.5); Lymphocyte # 1.88 X10^3/ul (0.83-4.51); Lymphocyte % 24.7 % (19-41); Mean Corp Hgb Conc 32.5 g/dL (32-36); Mean Corpuscular Hgb 31.3 pg (27.0-32.0); Mean Corpuscular Volume 96.3 fL (80-94); Mean Platelet Vol. 9.1 fl (6.2-12.0); Monocyte# 0.87 X10^3/uL; Monocyte% 11.4 % (0-10); NRBC Flagged by Analyzer 0 % (0-5); Neutrophil # 4.67 X10^3/uL (2.7-7.7); Neutrophil % 61.3 % (47-70); Platelet Count 266 K/mm3 (150-450); RBC Distribution Width CV 11.9 % (11.6-14.6); RBC Distribution Width SD 42.9 fl (35.1-43.9); Red Blood Count 4.09 M/mm3 (4.6-6.2); White Blood Count 7.6 K/mm3 (4.4-11.0)
--- NOTE | 2021-03-26 09:57 | RAD_ITS ---
STUDY: X-RAY CHEST REASON FOR EXAM: Male, 65 years old. Chest pain TECHNIQUE: Single AP portable view of the chest. COMPARISON: Comparison is made with prior study 08/20/2017. FINDINGS: There is hyperinflation of the lungs consistent with chronic obstructive lung disease (COPD). There is no demonstrated pleural abnormality. Normal size heart. Normal mediastinum and chapincito. Normal visualized pulmonary arteries. Normal visualized aortic arch and descending thoracic aorta. There are diffuse degenerative changes of the visualized thoracic spine. Levoscoliosis. Normal visualized ribs, clavicles, and shoulders. There is no demonstrated abnormality of the visualized soft tissue structures of the upper abdomen. RAD/Chest 1 View (Portable) IMPRESSION: Hyperinflation. No acute abnormality is seen. Electronically Signed: Steve Rowell MD at 10:07 EDT , Service support ,
[2021-03-26 09:59] LABS: D-Dimer Quantitative (DVT/PE) 1.97 FEU/ug/m (0.27-0.49)
--- NOTE | 2021-03-26 10:05 | CT_ITS ---
STUDY: CTA CHEST REASON FOR EXAM: Male, 65 years old. Chest pain, elevated d-dimer RADIATION DOSAGE (If Supplied By Facility): CTDIvol = ( 9.56 ) mGy, DLP = ( 436.87 ) mGycm TECHNIQUE: The examination was performed with the intravenous administration of IV 100mL Isovue-370. Post-processing of the angiographic images was performed, with multiplanar reformation and 3D reconstruction. Individualized dose optimization techniques were used for this CT. COMPARISON: Comparison is made with prior chest radiograph done earlier in the day. FINDINGS: Normal enhancement of the main pulmonary artery and right and left pulmonary arteries. Normal enhancement of the bilateral peripheral pulmonary arteries. There is no demonstrated pulmonary embolism. There is atherosclerotic calcification of the aortic arch with tortuosity. There is no demonstrated aortic dissection. There are calcifications of the coronary arteries. Normal mediastinum. Normal hilar regions. Normal visualized trachea and bronchi. The lungs are hyper expanded, with flattening of the hemidiaphragms. Diffuse emphysematous changes worse in the upper lobes with evidence of a bullous formation. Normal pleura. Normal chest wall structures. There are degenerative changes of thoracic spine. Increased kyphosis. Normal visualized upper abdomen. CT/CTA Chest W/WO Contrast IMPRESSION: Hyperinflation and emphysematous changes with bullous formation worse in the upper lobes. There is no evidence of pulmonary embolus. Electronically Signed: Steve Rowell MD at 11:22 EDT , Service support ,
[2021-03-26 10:12] LABS: Anion Gap 4 (5-15); BUN 14 mg/dL (7-18); BUN/Creat Ratio 16.7 RATIO (10-20); Calcium,Total 8.8 mg/dL (8.5-10.1); Chloride 106 mmol/L (98-107); Creatinine, Serum 0.84 mg/dL (0.70-1.30); EST Glomerular Filtration Rate 98 mL/min (>60); Est Glom Filt Rate - Afr Amer 119 mL/min (>60); Estimated Creatinine Clearance 87.08 ml/min; Glucose 108 mg/dL (74-106); Sodium Level 139 mmol/L (136-145)
[2021-03-26] MEDS: 0.9% Normal Saline 1,000 ML 1000 ML IV (11:56)
[2021-03-26 12:44] VITALS: BP 133/84; PULSE 71; RESP 16; O2SAT 100
== END 2021-03-26 12:45 | disposition home or self-care (01) ==
PROVIDERS: Emergency Provider Emergency Medicine; PCP Family Medicine
DX: M54.10 Radiculopathy, site unspecified (principal); M25.512 Pain in left shoulder; M79.602 Pain in left arm; E78.5 Hyperlipidemia, unspecified; Z79.890 Hormone replacement therapy; Z79.899 Other long term (current) drug therapy; Z87.891 Personal history of nicotine dependence
CPT/HCPCS: 71045; 71275; 80048; 84484; 85025; 85379; 93005; 93971; 96360; 99283; J7030; Q9967

== ENCOUNTER → 2021-03-31 15:04 | Outpatient (CLI) | payer BC, SELFPAY ==
[2021-03-26 09:20] VITALS: BMI 29.3
[2021-03-31 17:49] LABS: Absolute Lymphocyte Count 2.15 X10^3/uL (0.83-4.51); Absolute Neutrophil Count 3.9 X10^3/uL (2.0-7.7); Basophil# 0.02 X10^3/uL; Basophil% 0.3 % (0-1); Eosinophils% 1.5 % (0-5); Hematocrit 42.3 % (40-54); Hemoglobin 13.6 g/dL (13.0-16.5); Lymphocyte # 2.15 X10^3/ul (0.83-4.51); Lymphocyte % 31.8 % (19-41); Mean Corp Hgb Conc 32.2 g/dL (32-36); Mean Corpuscular Hgb 31.4 pg (27.0-32.0); Mean Corpuscular Volume 97.7 fL (80-94); Mean Platelet Vol. 10.3 fl (6.2-12.0); Monocyte# 0.62 X10^3/uL; Monocyte% 9.2 % (0-10); NRBC Flagged by Analyzer 0 % (0-5); Neutrophil # 3.85 X10^3/uL (2.7-7.7); Neutrophil % 56.9 % (47-70); Platelet Count 336 K/mm3 (150-450); RBC Distribution Width CV 11.9 % (11.6-14.6); RBC Distribution Width SD 42.7 fl (35.1-43.9); Red Blood Count 4.33 M/mm3 (4.6-6.2); White Blood Count 6.8 K/mm3 (4.4-11.0)
[2021-03-31 17:59] LABS: Vitamin B12 344 pg/mL (211-911); Vitamin D,25 Hydroxy 41.3 ng/mL
[2021-03-31 18:23] LABS: ALB/GLOB Ratio 1.1 RATIO (0.9-2.4); AST(SGOT) 12 U/L (15-37); Alanine Aminotransfer ALT/SGPT 16 U/L (16-61); Albumin, Serum 3.7 g/dL (3.2-5.0); Alkaline Phosphatase 79 U/L (45-117); Anion Gap 6 (5-15); BUN 12 mg/dL (7-18); BUN/Creat Ratio 13.8 RATIO (10-20); Calcium,Total 8.9 mg/dL (8.5-10.1); Chloride 102 mmol/L (98-107); Cholesterol 187 mg/dL (200); Creatinine, Serum 0.87 mg/dL (0.70-1.30); EST Glomerular Filtration Rate 94 mL/min (>60); Est Glom Filt Rate - Afr Amer 114 mL/min (>60); Globulin 3.5 g/dL (2.2-4.2); Glucose 72 mg/dL (74-106); High Density Lipoprotein 55 mg/dL; Potassium 4.2 mmol/L (3.5-5.1); Protein, Total 7.2 g/dL (6.4-8.2); Sodium Level 137 mmol/L (136-145); T4 Free Direct 1.61 ng/dL (0.76-1.46); Thyroid Stim Hormone (TSH) 0.91 uIU/mL (0.358-3.74); Triglycerides 77 mg/dL; Very Low Density Lipoprotein 15 mg/dL (5-40)
== END ==
PROVIDERS: PCP Family Medicine; Referring Provider Family Medicine; Visit Provider Family Medicine
DX: E78.5 Hyperlipidemia, unspecified (principal); D53.9 Nutritional anemia, unspecified; E03.8 Other specified hypothyroidism; E55.9 Vitamin D deficiency, unspecified
CPT/HCPCS: 36415; 80053; 80061; 82306; 82607; 82746; 84439; 84443; 85025

== ENCOUNTER → 2021-07-10 13:36 | Outpatient (CLI) | payer BC, SELFPAY ==
[2021-07-10 15:20] LABS: Absolute Lymphocyte Count 1.78 X10^3/uL (0.83-4.51); Absolute Neutrophil Count 4.8 X10^3/uL (2.0-7.7); Basophil# 0.04 X10^3/uL; Basophil% 0.5 % (0-1); Eosinophil# 0.06 X10^3/uL; Eosinophils% 0.8 % (0-5); Hematocrit 39.9 % (40-54); Hemoglobin 13.5 g/dL (13.0-16.5); Lymphocyte # 1.78 X10^3/ul (0.83-4.51); Lymphocyte % 23.8 % (19-41); Mean Corp Hgb Conc 33.8 g/dL (32-36); Mean Corpuscular Hgb 32.5 pg (27.0-32.0); Mean Corpuscular Volume 95.9 fL (80-94); Mean Platelet Vol. 10.5 fl (6.2-12.0); Monocyte# 0.78 X10^3/uL; Monocyte% 10.4 % (0-10); NRBC Flagged by Analyzer 0 % (0-5); Neutrophil % 64.2 % (47-70); Platelet Count 223 K/mm3 (150-450); RBC Distribution Width CV 12.9 % (11.6-14.6); RBC Distribution Width SD 45.5 fl (35.1-43.9); Red Blood Count 4.16 M/mm3 (4.6-6.2); White Blood Count 7.5 K/mm3 (4.4-11.0)
[2021-07-10 16:01] LABS: Vitamin D,25 Hydroxy 49.1 ng/mL
[2021-07-10 16:14] LABS: ALB/GLOB Ratio 1.1 RATIO (0.9-2.4); AST(SGOT) 15 U/L (15-37); Alanine Aminotransfer ALT/SGPT 17 U/L (16-61); Albumin, Serum 3.9 g/dL (3.2-5.0); Alkaline Phosphatase 81 U/L (45-117); Anion Gap 6 (5-15); BUN 10 mg/dL (7-18); BUN/Creat Ratio 13.1 RATIO (10-20); Calcium,Total 8.7 mg/dL (8.5-10.1); Chloride 104 mmol/L (98-107); Creatinine, Serum 0.77 mg/dL (0.70-1.30); EST Glomerular Filtration Rate 109 mL/min (>60); Est Glom Filt Rate - Afr Amer 132 mL/min (>60); Globulin 3.6 g/dL (2.2-4.2); Glucose 91 mg/dL (74-106); PSA,Total - Annual Screen 1.51 ng/mL (0.00-4.00); Potassium 3.6 mmol/L (3.5-5.1); Protein, Total 7.5 g/dL (6.4-8.2); Sodium Level 137 mmol/L (136-145); T4 Free Direct 1.52 ng/dL (0.76-1.46); Thyroid Stim Hormone (TSH) 0.57 uIU/mL (0.358-3.74)
== END ==
PROVIDERS: PCP Family Medicine; Referring Provider Family Medicine; Visit Provider Nurse Practitioner Adult Health
DX: E03.8 Other specified hypothyroidism (principal); E55.9 Vitamin D deficiency, unspecified; Z12.5 Encounter for screening for malignant neoplasm of prostate
CPT/HCPCS: 36415; 80053; 82306; 84153; 84439; 84443; 85025; G0103

== ENCOUNTER 2022-01-06 15:15 | Outpatient (CLI) | payer BC, SELFPAY ==
[2022-01-06 18:05] LABS: Absolute Lymphocyte Count 2.23 X10^3/uL (0.83-4.51); Absolute Neutrophil Count 3.7 X10^3/uL (2.0-7.7); Basophil# 0.04 X10^3/uL; Basophil% 0.6 % (0-1); Eosinophils% 1.5 % (0-5); Hemoglobin 13.4 g/dL (13.0-16.5); Lymphocyte # 2.23 X10^3/ul (0.83-4.51); Lymphocyte % 33.4 % (19-41); Mean Corp Hgb Conc 33.5 g/dL (32-36); Mean Corpuscular Hgb 32.5 pg (27.0-32.0); Mean Corpuscular Volume 97.1 fL (80-94); Mean Platelet Vol. 10.7 fl (6.2-12.0); Monocyte# 0.61 X10^3/uL; Monocyte% 9.1 % (0-10); NRBC Flagged by Analyzer 0 % (0-5); Neutrophil # 3.68 X10^3/uL (2.7-7.7); Neutrophil % 55.3 % (47-70); Platelet Count 203 K/mm3 (150-450); RBC Distribution Width CV 12.8 % (11.6-14.6); RBC Distribution Width SD 45.9 fl (35.1-43.9); Red Blood Count 4.12 M/mm3 (4.6-6.2); White Blood Count 6.7 K/mm3 (4.4-11.0)
[2022-01-06 18:31] LABS: Vitamin D,25 Hydroxy 43.6 ng/mL
[2022-01-06 18:44] LABS: ALB/GLOB Ratio 1.1 RATIO (0.9-2.4); AST(SGOT) 18 U/L (15-37); Alanine Aminotransfer ALT/SGPT 21 U/L (16-61); Albumin, Serum 3.8 g/dL (3.2-5.0); Alkaline Phosphatase 70 U/L (45-117); Anion Gap 7 (5-15); BUN 14 mg/dL (7-18); Calcium,Total 8.8 mg/dL (8.5-10.1); Chloride 103 mmol/L (98-107); Creatinine, Serum 0.82 mg/dL (0.70-1.30); EST Glomerular Filtration Rate 100 mL/min (>60); Est Glom Filt Rate - Afr Amer 121 mL/min (>60); Globulin 3.4 g/dL (2.2-4.2); Glucose 82 mg/dL (74-106); Potassium 3.9 mmol/L (3.5-5.1); Protein, Total 7.2 g/dL (6.4-8.2); Sodium Level 137 mmol/L (136-145); T4 Free Direct 1.41 ng/dL (0.76-1.46); Thyroid Stim Hormone (TSH) 0.68 uIU/mL (0.358-3.74)
== END 2022-01-06 23:59 | disposition home or self-care (01) ==
LOC: MFPLAB 15:19
PROVIDERS: PCP Family Medicine; Referring Provider Family Medicine; Visit Provider Family Medicine
DX: J44.9 Chronic obstructive pulmonary disease, unspecified (principal); E55.9 Vitamin D deficiency, unspecified; E03.8 Other specified hypothyroidism
CPT/HCPCS: 36415; 80053; 82306; 84439; 84443; 85025

== ENCOUNTER → 2022-07-08 | Outpatient (CLI) | payer MEDICARE, OTHER, SELFPAY ==
[2022-07-08 10:14] LABS: Absolute Lymphocyte Count 1.93 X10^3/uL (0.83-4.51); Absolute Neutrophil Count 2.9 X10^3/uL (2.0-7.7); Basophil# 0.02 X10^3/uL; Basophil% 0.4 % (0-1); Eosinophil# 0.13 X10^3/uL; Eosinophils% 2.3 % (0-5); Hematocrit 45.6 % (40-54); Lymphocyte # 1.93 X10^3/ul (0.83-4.51); Lymphocyte % 34.2 % (19-41); Mean Corp Hgb Conc 32.9 g/dL (32-36); Mean Corpuscular Hgb 33.5 pg (27.0-32.0); Mean Corpuscular Volume 101.8 fL (80-94); Mean Platelet Vol. 11.4 fl (6.2-12.0); Monocyte# 0.68 X10^3/uL; Monocyte% 12.1 % (0-10); NRBC Flagged by Analyzer 0 % (0-5); Neutrophil # 2.87 X10^3/uL (2.7-7.7); Neutrophil % 50.8 % (47-70); Platelet Count 192 K/mm3 (150-450); RBC Distribution Width CV 12.7 % (11.6-14.6); RBC Distribution Width SD 47.6 fl (35.1-43.9); Red Blood Count 4.48 M/mm3 (4.6-6.2); White Blood Count 5.6 K/mm3 (4.4-11.0)
[2022-07-08 10:41] LABS: Vitamin D,25 Hydroxy 78.8 ng/mL
[2022-07-08 10:45] LABS: AST(SGOT) 25 U/L (15-37); Alanine Aminotransfer ALT/SGPT 25 U/L (16-61); Albumin, Serum 3.5 g/dL (3.2-5.0); Alkaline Phosphatase 78 U/L (45-117); Anion Gap 4 (5-15); BUN 12 mg/dL (7-18); BUN/Creat Ratio 13.2 RATIO (10-20); Calcium,Total 8.4 mg/dL (8.5-10.1); Chloride 104 mmol/L (98-107); Cholesterol 187 mg/dL (200); Creatinine, Serum 0.91 mg/dL (0.70-1.30); EST Glomerular Filtration Rate 89 mL/min (>60); Est Glom Filt Rate - Afr Amer 108 mL/min (>60); Globulin 3.6 g/dL (2.2-4.2); Glucose 84 mg/dL (74-106); High Density Lipoprotein 58 mg/dL; Potassium 3.9 mmol/L (3.5-5.1); Protein, Total 7.1 g/dL (6.4-8.2); Sodium Level 137 mmol/L (136-145); Thyroid Stim Hormone (TSH) 3.94 uIU/mL (0.358-3.74); Triglycerides 74 mg/dL; Very Low Density Lipoprotein 15 mg/dL (5-40)
== END | disposition home or self-care (01) ==
LOC: MFPLAB 08:47
PROVIDERS: PCP Family Medicine; Referring Provider Family Medicine; Visit Provider Family Medicine
DX: E03.8 Other specified hypothyroidism (principal); E55.9 Vitamin D deficiency, unspecified
CPT/HCPCS: 36415; 80053; 80061; 82306; 84439; 84443; 85025

== ENCOUNTER → 2022-07-27 | Outpatient (CLI) | payer MEDICARE, OTHER, SELFPAY ==
[2022-07-27 10:28] LABS: PSA,Total - Annual Screen 1.46 ng/mL (0.00-4.00)
== END | disposition home or self-care (01) ==
LOC: LAB 09:05
PROVIDERS: PCP Family Medicine; Referring Provider Urology; Visit Provider Urology
DX: Z12.5 Encounter for screening for malignant neoplasm of prostate (principal)
CPT/HCPCS: 36415; 84153; G0103

== ENCOUNTER 2022-10-27 06:54 | Day surgery (SDC) | payer OTHER, MEDICARE, SELFPAY ==
[2022-10-27] MEDS: Lactated Ringers 1,000 ML 15 ML IV (07:20)
[2022-10-27 07:21] VITALS: BP 124/81; PULSE 62; RESP 18; TEMP 36.2; O2SAT 100; BMI 31.0
--- NOTE | 2022-10-27 07:54 | HP.PCM_ITS ---
[facility] - General General Date of Admission: 10/27/22 Date of Service: 10/27/22 Chief Complaint: Screening colonoscopy [facility] Narrative SUNDAY DONATO, is a 67 M who presents today for screening colonoscopy. He has a past medical history of gynecomastia and hypothyroidism. At this time he is not have any abdominal pain. He does not have any nausea. He denied any cramping. He does not have any chest pain or shortness of breath. He has no change in bowel habits. He has no history of adenomatous polyps. He has no family still colon cancer. He has no personal history of colon cancer. [facility] Medical History (Updated 10/25/22 @ 09:46 by Guerline Michel) Abnormal liver function tests Anemia Bladder disease Cardiac arrhythmia, unspecified Chronic obstructive pulmonary disease, unspecified Colon polyps Essential (primary) hypertension Flaccid neuropathic bladder, not elsewhere classified Former smoker History of diverticulitis HLD (hyperlipidemia) Hypertrophy of breast Kidney disease Masses of both breasts Other specified hypothyroidism Retention of urine, unspecified Vitamin D deficiency, unspecified Wears glasses Wears hearing aid Home Medications ergocalciferol (vitamin D2) 50 mcg (2,000 unit) tablet 2,000 unit PO DAILY 02/13/20 [History Last Taken 10/26/22] levothyroxine 137 mcg capsule 125 mcg PO DAILY 08/23/22 [History Last Taken 10/26/22] Allergy/AdvReac Type Severity Reaction Status Date / Time rosuvastatin [From Crestor] Allergy Unknown Rhabdomyolysis,liver Verified 10/27/22 07:19 effects Penicillins AdvReac Hives Verified 10/27/22 07:19 Surgical History History of bilateral breast biopsy (~01/2020) History of colonoscopy History of hernia repair History of knee surgery History of repair of rotator cuff History of right inguinal hernia repair Social History Smoking Status: Former smoker alcohol intake: current alcohol intake frequency: a few times a month ROS Review of Systems ROS Unobtainable: other Constitutional Constitutional: Denies fatigue, fever(s), poor appetite, weight gain or weight loss ENT HEENT: Denies mouth lesions Cardiovascular Cardiovascular: Denies abdominal bloating, abdominal edema or abdominal pain Respiratory/Chest Respiratory/Chest: Denies change in mental status, change in phlegm color, chest congestion or chest tightness Gastrointestinal Gastrointestinal: Denies belching, bloating, change in bowel habits, change in stool character, chewing difficulty, coffee ground emesis, constipation, cramping, diarrhea, dyspepsia, dysphagia, early satiety, excessive flatus, fecal incontinence, heartburn, hematemesis, hematochezia, hemorrhoids, loose stools, melena, nausea, odynophagia, rectal bleeding, tenesmus, vomiting or weight changes Genitourinary Genitourinary: Denies abdominal discomfort, burning urination or itching Musculoskeletal Musculoskeletal: Reports as per HPI; Denies muscle weakness or myalgias Integumentary Integumentary: Denies jaundice Neurologic Neurologic: Denies lack of coordination or weakness Psychiatric Psychiatric: Denies confusion, depression, memory loss, mood swings, paranoia or suicidal ideation Endocrine Endocrinology: Denies systems reviewed and no addt'l complaints, except as documented Hematologic/Lymphatic Hematologic/Lymphatic: Denies anemia, easy bleeding, easy bruising or lymphadenopathy Allergic/Immunologic Allergic/Immunologic: Denies systems reviewed and no addt'l complaints, except as documented Vital Signs Vital Signs Vital Signs: 10/27/22 07:21 10/27/22 07:21 Temperature 97.2 F L Temperature Source Temporal Pulse Rate 62 Respiratory Rate 18 Respiratory Pattern Normal Blood Pressure 124/81 H Blood Pressure Mean 95 Blood Pressure Source Monitor Blood Pressure Position Sitting Blood Pressure Location Right Arm Pulse Ox 100 Oxygen Delivery Method Room Air Weight Weight: 204 lb Body Mass Index (BMI) 31.0 Physical Exam Const alert General Appearance: cooperative Orientation / Consciousness: oriented to person HEENT hearing grossly normal bilaterally Head and Scalp: normal to inspection Face and Sinus: face symmetric Nose: external nose normal Mouth: oral and palatal mucosa normal Eyes conjunctivae normal General Eye: normal appearance of both eyes Neck full ROM General: normal visual inspection Lymph Lymphatic: no lymphadenopathy noted Chest inspection of chest normal and palpation of chest normal Chest: symmetrical chest wall rise Resp normal respiratory effort Effort and Inspection: able to speak in complete sentences Cardio regular rate GI non-distended Percussion: normal to percussion Rectal Exam: deferred Neuro Speech: speech normal Gait (Neuro): normal gait Assessment & Plan Assessment/Plan (1) Encounter for screening for malignant neoplasm of colon: PLAN: He will undergo screening colonoscopy. He was explained alternatives, risk, benefits including not withstanding bleeding, infection, sepsis, perforation, need for emergency to . He will have an ASA 1.
[2022-10-27 08:20] VITALS: BP 103/59; BP 124/81; PULSE 60; RESP 16; TEMP 36.2; O2SAT 100
--- NOTE | 2022-10-27 08:21 | OP.COLON_ITS ---
Patient Name: Aaron Drew Procedure Date: 10/27/2022 7:48 AM Date of : 1955 Age: 67 Procedure: Colonoscopy Indications: Screening for colorectal malignant neoplasm Providers: Gio Mcfarland DO Medicines: Monitored Anesthesia Care Patient Profile: This is a 67 year old male. Refer to note in patient chart for documentation of history and physical. Last Colonoscopy: date unknown. Unable to locate last colonoscopy report. Complications: No immediate complications. Procedure: Pre-Anesthesia Assessment: - Prior to the procedure, a History and Physical was performed, and patient medications and allergies were reviewed. The patient is competent. The risks and benefits of the procedure and the sedation options and risks were discussed with the patient. All questions were answered and informed consent was obtained. Patient identification and proposed procedure were verified by the physician in the pre-procedure area. Mental Status Examination: alert and oriented. Airway Examination: normal oropharyngeal airway and neck mobility. Respiratory Examination: clear to auscultation. CV Examination: normal. Prophylactic Antibiotics: The patient does not require prophylactic antibiotics. Prior Anticoagulants: The patient has taken no previous anticoagulant or antiplatelet agents. After reviewing the risks and benefits, the patient was deemed in satisfactory condition to undergo the procedure. The anesthesia plan was to use moderate sedation / analgesia (conscious sedation). Immediately prior to administration of medications, the patient was re-assessed for adequacy to receive sedatives. The heart rate, respiratory rate, oxygen saturations, blood pressure, adequacy of pulmonary ventilation, and response to care were monitored throughout the procedure. The physical status of the patient was re-assessed after the procedure. After I obtained informed consent, the scope was passed under direct vision. Throughout the procedure, the patient's blood pressure, pulse, and oxygen saturations were monitored continuously. The pediatric colonoscope was introduced through the anus and advanced to the cecum, identified by appendiceal orifice and ileocecal valve. The colonoscopy was performed without difficulty. The patient tolerated the procedure well. The quality of the bowel preparation was good. Scope In: 8:00:55 AM Scope Withdrawal Time 0 hours 9 minutes 42 seconds Scope Out: 8:17:25 AM Total Procedure Duration Time 0 hours 16 minutes 30 seconds Findings: The perianal and digital rectal examinations were normal. A few small-mouthed diverticula were found in the sigmoid colon and hepatic flexure. The exam was otherwise without abnormality on direct and retroflexion views. Impression: - Diverticulosis in the sigmoid colon and at the hepatic flexure. - The examination was otherwise normal on direct and retroflexion views. - No specimens collected. Recommendation: - Discharge patient to home. - Resume previous diet. - Continue present medications. - Repeat colonoscopy in 10 years for screening purposes. Procedure Code(s): --- Professional --- G0121, Colorectal cancer screening; colonoscopy on individual not meeting criteria for high risk CPT copyright 2017 [employer]. All rights reserved. The codes documented in this report are preliminary and upon die inspector review may be revised to meet current compliance requirements. Gio Mcfarland DO 10/27/2022 8:21:06 AM This report has been signed electronically. Number of Addenda: 0 Note Initiated On: 10/27/2022 7:48 AM
--- NOTE | 2022-10-27 08:22 | OP.CCLET_ITS ---
10/27/2022 Sourav Giraldo [address] [place] [address] Re : Colonoscopy procedure for Aaron Rajendra Dear Dr. Giraldo This procedure was performed on Thursday, October 27, 2022. My impressions and recommendations are as follows: Impressions : - Diverticulosis in the sigmoid colon and at the hepatic flexure. - The examination was otherwise normal on direct and retroflexion views. - No specimens collected. Recommendations : - Discharge patient to home. - Resume previous diet. - Continue present medications. - Repeat colonoscopy in 10 years for screening purposes. My findings are described in the full procedure note, which is enclosed. If I can be of further assistance, please feel free to contact me at . Sincerely, Gio Mcfarland, 10/27/2022 8:21:06 AM This report has been signed electronically.
[2022-10-27 08:25] VITALS: BP 124/81; BP 95/66; PULSE 60; RESP 16; O2SAT 99
[2022-10-27 08:30] VITALS: BP 101/66; BP 124/81; PULSE 69; RESP 16; O2SAT 99
[2022-10-27 08:32] VITALS: BP 124/81; BP 97/70; PULSE 60; RESP 16; TEMP 36.3; O2SAT 100
[2022-10-27 08:48] VITALS: BP 124/81
== END 2022-10-27 09:02 | disposition home or self-care (01) ==
LOC: EN 06:56 → AC 07:00
PROVIDERS: PCP Family Medicine; Referring Provider Family Medicine; Visit Provider Internal Medicine Gastroenterology
PROC: 0DJD8ZZ Inspection of Lower Intestinal Tract, Via Natural or Artificial Opening Endoscopic (ICD-10-PCS; CPT 45378; principal; 2022-10-27 07:55)
DX: Z12.11 Encounter for screening for malignant neoplasm of colon (principal); J44.9 Chronic obstructive pulmonary disease, unspecified; K57.30 Diverticulosis of large intestine without perforation or abscess without bleeding; E03.9 Hypothyroidism, unspecified; N62 Hypertrophy of breast; E55.9 Vitamin D deficiency, unspecified; N31.2 Flaccid neuropathic bladder, not elsewhere classified; Z79.899 Other long term (current) drug therapy; Z87.891 Personal history of nicotine dependence
CPT/HCPCS: G0121; J7120; J2405

== ENCOUNTER → 2022-12-23 | Outpatient (CLI) | payer OTHER, MEDICARE, SELFPAY | END | disposition home or self-care (01) | PROVIDERS: PCP Family Medicine; Referring Provider Urology; Visit Provider Urology | DX: N30.00 Acute cystitis without hematuria (principal) | CPT/HCPCS: 87077; 87086; 87088; 87186 ==

== ENCOUNTER → 2023-01-06 | Outpatient (CLI) | payer MEDICARE, SELFPAY | END | disposition home or self-care (01) | LOC: MFPLAB 08:54 | PROVIDERS: PCP Family Medicine; Referring Provider Family Medicine; Visit Provider Family Medicine | DX: Z00.00 Encounter for general adult medical examination without abnormal findings (principal) ==

== ENCOUNTER → 2023-01-21 | Outpatient (CLI) | payer OTHER, MEDICARE, SELFPAY ==
[2023-01-21 10:09] LABS: Absolute Lymphocyte Count 1.93 X10^3/uL (0.83-4.51); Absolute Neutrophil Count 3.9 X10^3/uL (2.0-7.7); Basophil# 0.02 X10^3/uL; Basophil% 0.3 % (0-1); Eosinophil# 0.16 X10^3/uL; Eosinophils% 2.4 % (0-5); Hematocrit 45.4 % (40-54); Hemoglobin 14.7 g/dL (13.0-16.5); Lymphocyte # 1.93 X10^3/ul (0.83-4.51); Mean Corp Hgb Conc 32.4 g/dL (32-36); Mean Corpuscular Hgb 32.2 pg (27.0-32.0); Mean Corpuscular Volume 99.3 fL (80-94); Mean Platelet Vol. 10.6 fl (6.2-12.0); Monocyte# 0.67 X10^3/uL; Monocyte% 10.1 % (0-10); NRBC Flagged by Analyzer 0 % (0-5); Neutrophil # 3.85 X10^3/uL (2.7-7.7); Neutrophil % 57.9 % (47-70); Platelet Count 260 K/mm3 (150-450); RBC Distribution Width CV 12.2 % (11.6-14.6); RBC Distribution Width SD 44.4 fl (35.1-43.9); Red Blood Count 4.57 M/mm3 (4.6-6.2); White Blood Count 6.7 K/mm3 (4.4-11.0)
[2023-01-21 10:57] LABS: Vitamin D,25 Hydroxy 97.1 ng/mL
[2023-01-21 11:00] LABS: AST(SGOT) 17 U/L (15-37); Alanine Aminotransfer ALT/SGPT 18 U/L (16-61); Albumin, Serum 3.6 g/dL (3.2-5.0); Alkaline Phosphatase 73 U/L (45-117); Anion Gap 4 (5-15); BUN 15 mg/dL (7-18); BUN/Creat Ratio 16.5 RATIO (10-20); Calcium,Total 8.9 mg/dL (8.5-10.1); Chloride 103 mmol/L (98-107); Cholesterol 184 mg/dL (200); Creatinine, Serum 0.91 mg/dL (0.70-1.30); EST Glomerular Filtration Rate 89 mL/min (>60); Est Glom Filt Rate - Afr Amer 108 mL/min (>60); Globulin 3.7 g/dL (2.2-4.2); Glucose 90 mg/dL (74-106); High Density Lipoprotein 53 mg/dL; Potassium 4.3 mmol/L (3.5-5.1); Protein, Total 7.3 g/dL (6.4-8.2); Sodium Level 137 mmol/L (136-145); Thyroid Stim Hormone (TSH) 2.11 uIU/mL (0.358-3.74); Triglycerides 87 mg/dL; Very Low Density Lipoprotein 17 mg/dL (5-40)
== END | disposition home or self-care (01) ==
LOC: MFPLAB 08:37
PROVIDERS: PCP Family Medicine; Referring Provider Family Medicine; Visit Provider Family Medicine
DX: Z00.00 Encounter for general adult medical examination without abnormal findings (principal); E78.5 Hyperlipidemia, unspecified; E55.9 Vitamin D deficiency, unspecified
CPT/HCPCS: 36415; 80053; 80061; 82306; 84439; 84443; 85025

== ENCOUNTER → 2023-07-06 | Outpatient (CLI) | payer OTHER, MEDICARE, SELFPAY ==
[2023-07-06 10:16] LABS: Absolute Lymphocyte Count 1.83 X10^3/uL (0.83-4.51); Basophil# 0.04 X10^3/uL; Basophil% 0.7 % (0-1); Eosinophil# 0.14 X10^3/uL; Eosinophils% 2.6 % (0-5); Lymphocyte # 1.83 X10^3/ul (0.83-4.51); Lymphocyte % 33.6 % (19-41); Mean Corp Hgb Conc 33.3 g/dL (32-36); Mean Corpuscular Volume 99.1 fL (80-94); Mean Platelet Vol. 10.5 fl (6.2-12.0); Monocyte# 0.46 X10^3/uL; Monocyte% 8.5 % (0-10); NRBC Flagged by Analyzer 0 % (0-5); Neutrophil # 2.96 X10^3/uL (2.7-7.7); Neutrophil % 54.4 % (47-70); Platelet Count 219 K/mm3 (150-450); RBC Distribution Width CV 12.5 % (11.6-14.6); RBC Distribution Width SD 46.4 fl (35.1-43.9); Red Blood Count 4.54 M/mm3 (4.6-6.2); White Blood Count 5.4 K/mm3 (4.4-11.0)
[2023-07-06 10:51] LABS: Vitamin D,25 Hydroxy 63.3 ng/mL
[2023-07-06 10:55] LABS: ALB/GLOB Ratio 0.9 RATIO (0.9-2.4); AST(SGOT) 14 U/L (15-37); Alanine Aminotransfer ALT/SGPT 18 U/L (16-61); Albumin, Serum 3.5 g/dL (3.2-5.0); Alkaline Phosphatase 74 U/L (45-117); Anion Gap 6 (5-15); BUN 12 mg/dL (7-18); BUN/Creat Ratio 13.4 RATIO (10-20); Calcium,Total 8.9 mg/dL (8.5-10.1); Chloride 103 mmol/L (98-107); Cholesterol 185 mg/dL (200); EST Glomerular Filtration Rate 90 mL/min (>60); Est Glom Filt Rate - Afr Amer 109 mL/min (>60); Globulin 3.9 g/dL (2.2-4.2); Glucose 114 mg/dL (74-106); High Density Lipoprotein 66 mg/dL; Potassium 4.3 mmol/L (3.5-5.1); Protein, Total 7.4 g/dL (6.4-8.2); Sodium Level 139 mmol/L (136-145); T4 Free Direct 1.35 ng/dL (0.76-1.46); Thyroid Stim Hormone (TSH) 1.64 uIU/mL (0.358-3.74); Triglycerides 74 mg/dL; Very Low Density Lipoprotein 15 mg/dL (5-40)
[2023-07-07 13:07] LABS: Hemoglobin A1c 5.4 % (3.8-5.6)
== END | disposition home or self-care (01) ==
LOC: MFPLAB 08:23
PROVIDERS: PCP Family Medicine; Visit Provider Family Medicine
DX: R73.09 Other abnormal glucose (principal); E03.8 Other specified hypothyroidism; E78.5 Hyperlipidemia, unspecified; E55.9 Vitamin D deficiency, unspecified
CPT/HCPCS: 36415; 80053; 80061; 82306; 83036; 84439; 84443; 85025

== ENCOUNTER → 2023-07-28 | Outpatient (CLI) | payer OTHER, MEDICARE, SELFPAY | END | disposition home or self-care (01) | PROVIDERS: PCP Family Medicine; Referring Provider Urology; Visit Provider Urology | DX: Z12.5 Encounter for screening for malignant neoplasm of prostate (principal) | CPT/HCPCS: 36415; 84153; G0103 ==

== ENCOUNTER → 2023-08-04 | Outpatient (CLI) | payer OTHER, MEDICARE, SELFPAY ==
--- NOTE | 2023-08-04 07:32 | CT_ITS ---
EXAM: CT CHEST, LUNG CANCER SCREENING WITHOUT INTRAVENOUS CONTRAST CLINICAL INDICATION: history of tobacco use TECHNIQUE: Helically acquired images were obtained of the chest without intravenous contrast using low dose (LDCT) lung cancer screening protocol. This CT exam was performed using one or more of the following dose reduction techniques: automated exposure control, adjustment of the mA and/or kV according to patient size, and/or use of iterative reconstruction technique. COMPARISON: CTA chest 03/26/2021, CT Lung Cancer Screening dated 06/12/2020 FINDINGS: LUNGS AND PLEURAL SPACES: Paraseptal and centrilobular emphysematous changes of the lungs again seen. No evidence of a lung mass or suspicious pulmonary nodule. No pleural effusion or thickening. No pneumothorax. HEART: Heart is normal size. Moderate coronary artery calcification. No pericardial effusion. MEDIASTINUM: Normal. No mediastinal or hilar adenopathy. Esophagus is unremarkable. No hiatal hernia. THYROID: Normal. No thyroid nodules or calcification. BONES/JOINTS: No suspicious lytic or blastic abnormality. VASCULATURE: No aortic aneurysm. LYMPH NODES: Normal. No enlarged lymph nodes. CT/Low Dose CT Lung Screening IMPRESSION: 1. No evidence of a lung mass or suspicious pulmonary nodule. 2. Pulmonary emphysema. Lung-RADS score: 1S - Negative. Additional clinically significant or potentially clinically significant findings are described. Recommend continued annual screening with a low-dose CT (LDCT) in 12 months. Electronically Signed: Missael Elena MD at 8:16 EDT ,
== END | disposition home or self-care (01) ==
LOC: CT 07:28
PROVIDERS: PCP Family Medicine; Referring Provider Family Medicine; Visit Provider Family Medicine
DX: Z12.2 Encounter for screening for malignant neoplasm of respiratory organs (principal); Z87.891 Personal history of nicotine dependence
CPT/HCPCS: 71271

== ENCOUNTER → 2023-08-23 | Outpatient (CLI) | payer OTHER, MEDICARE, SELFPAY | END | disposition home or self-care (01) | LOC: LABSPEC 16:12 | PROVIDERS: PCP Family Medicine; Referring Provider Urology; Visit Provider Urology | DX: N30.00 Acute cystitis without hematuria (principal) | CPT/HCPCS: 87077; 87086; 87088; 87186 ==

== ENCOUNTER → 2024-01-12 | Outpatient (CLI) | payer MEDICARE, SELFPAY ==
--- OUTSIDE RECORDS SUMMARY | 2024-01-12 20:36 | XMS RPT_ITS | CCD ---
Author Name Unknown Address [address] [place] [address] Organization [facility] Care Team Providers Care Ornamental Painter Name Role Phone MONY KNOX Unavailable Unavailable MONY KNOX Unavailable Unavailable Allergies Allergy Classification Reported Allergen(s) Allergy Type Date of Onset Reaction(s) Facility (1 source) penicillin; Translations: [PENICILLIN] Drug Allergy 08-24-2017 [facility] Other [place] Repository Problems Problem Classification Problem Date Documented Da te Episodic/Chronic Abdominal hernia (1 source) Unilateral inguinal hernia, without obstruction or gangrene, not specified as recurrent; Translations: [Unilateral inguinal hernia, without obstruction or gangrene, not specified as recurrent] Onset: 01-04-2018 Episodic Results Test Name Value Interpretation Reference Range Facil ity Encounters Encounter Date Encounter Type Care Provider Facility Start: 01-04-2018 End: 01-04-2018 Ambulatory MONY [facility] Summary Purpose Family History No Family History Records Found Advance Directives No Advanced Directives Records Found Additional Source Comments (unrecognized sect ion and content) No Status Records Found INFORMATION SOURCE (unrecogn ized section and content) FOR RECORDS PERTAINING TO PATIENTS WHO ARE OR HAVE BEEN ENROLLED IN A CHEMICAL DEPENDENCY/SUBSTANCEABUSE PROGRAM, SOME INFORMATION MAY BE OMITTED. This clinical summary was aggregated from multiple sources. Caution should be exercised in using it in the provision of clinical care. This summary normalizes information from multiple sources, and as a consequence, information in this document may materially change the coding, format and clinical context of patient data. In addition, data may be omitted in some cases. CLINICAL DECISIONS SHOULD BE BASED ON THE PRIMARY CLINICAL RECORDS. [employer] provides no warranty or guarantee of the accuracy or completeness of information in this document.
== END | disposition home or self-care (01) ==
PROVIDERS: PCP Family Medicine; Referring Provider Urology; Visit Provider Urology
DX: R31.9 Hematuria, unspecified (principal); R30.0 Dysuria
CPT/HCPCS: 87077; 87086; 87088; 87186

== ENCOUNTER → 2024-03-21 | Outpatient (CLI) | payer MEDICARE, SELFPAY ==
[2024-03-21 10:09] LABS: Absolute Lymphocyte Count 1.92 X10^3/uL (0.83-4.51); Absolute Neutrophil Count 3.2 X10^3/uL (2.0-7.7); Basophil# 0.03 X10^3/uL; Basophil% 0.5 % (0-1); Eosinophil# 0.14 X10^3/uL; Eosinophils% 2.3 % (0-5); Hematocrit 42.5 % (40-54); Hemoglobin 13.6 g/dL (13.0-16.5); Lymphocyte # 1.92 X10^3/ul (0.83-4.51); Lymphocyte % 31.9 % (19-41); Mean Corpuscular Hgb 31.7 pg (27.0-32.0); Mean Corpuscular Volume 99.1 fL (80-94); Mean Platelet Vol. 10.8 fl (6.2-12.0); Monocyte# 0.76 X10^3/uL; Monocyte% 12.6 % (0-10); NRBC Flagged by Analyzer 0 % (0-5); Neutrophil # 3.15 X10^3/uL (2.7-7.7); Neutrophil % 52.4 % (47-70); Platelet Count 224 K/mm3 (150-450); RBC Distribution Width CV 13.2 % (11.6-14.6); RBC Distribution Width SD 47.9 fl (35.1-43.9); Red Blood Count 4.29 M/mm3 (4.6-6.2)
[2024-03-21 10:50] LABS: ALB/GLOB Ratio 1.1 RATIO (0.9-2.4); AST(SGOT) 16 U/L (15-37); Alanine Aminotransfer ALT/SGPT 18 U/L (16-61); Albumin, Serum 3.6 g/dL (3.2-5.0); Alkaline Phosphatase 75 U/L (45-117); Anion Gap 3 (5-15); BUN 11 mg/dL (7-18); BUN/Creat Ratio 12.2 RATIO (10-20); Calcium,Total 8.4 mg/dL (8.5-10.1); Chloride 109 mmol/L (98-107); Cholesterol 169 mg/dL (200); EST Glomerular Filtration Rate 89 mL/min (>60); Est Glom Filt Rate - Afr Amer 108 mL/min (>60); Globulin 3.3 g/dL (2.2-4.2); Glucose 103 mg/dL (74-106); High Density Lipoprotein 53 mg/dL; Potassium 4.2 mmol/L (3.5-5.1); Protein, Total 6.9 g/dL (6.4-8.2); Sodium Level 141 mmol/L (136-145); T4 Free Direct 1.18 ng/dL (0.76-1.46); Thyroid Stim Hormone (TSH) 2.69 uIU/mL (0.358-3.74); Triglycerides 57 mg/dL; Very Low Density Lipoprotein 11 mg/dL (5-40)
[2024-03-21 11:02] LABS: Hemoglobin A1c 5.2 % (3.8-5.6)
[2024-03-21 12:04] LABS: Vitamin D,25 Hydroxy 77.6 ng/mL
== END | disposition home or self-care (01) ==
LOC: MFPLAB 08:05
PROVIDERS: PCP Family Medicine; Visit Provider Family Medicine
DX: E78.5 Hyperlipidemia, unspecified (principal); E03.8 Other specified hypothyroidism; E55.9 Vitamin D deficiency, unspecified; R73.09 Other abnormal glucose
CPT/HCPCS: 36415; 80053; 80061; 82306; 83036; 84439; 84443; 85025

== ENCOUNTER → 2024-09-18 | Outpatient (CLI) | payer MEDICARE, SELFPAY ==
[2024-09-18 10:05] LABS: Absolute Lymphocyte Count 1.98 X10^3/uL (0.83-4.51); Absolute Neutrophil Count 4.3 X10^3/uL (2.0-7.7); Basophil# 0.03 X10^3/uL; Basophil% 0.4 % (0-1); Eosinophil# 0.17 X10^3/uL; Eosinophils% 2.3 % (0-5); Hematocrit 44.9 % (40-54); Hemoglobin 14.9 g/dL (13.0-16.5); Lymphocyte # 1.98 X10^3/ul (0.83-4.51); Lymphocyte % 27.3 % (19-41); Mean Corp Hgb Conc 33.2 g/dL (32-36); Mean Corpuscular Hgb 32.7 pg (27.0-32.0); Mean Corpuscular Volume 98.7 fL (80-94); Mean Platelet Vol. 10.7 fl (6.2-12.0); Monocyte# 0.75 X10^3/uL; Monocyte% 10.3 % (0-10); NRBC Flagged by Analyzer 0 % (0-5); Neutrophil # 4.31 X10^3/uL (2.7-7.7); Neutrophil % 59.4 % (47-70); Platelet Count 199 K/mm3 (150-450); RBC Distribution Width CV 12.4 % (11.6-14.6); RBC Distribution Width SD 45.1 fl (35.1-43.9); Red Blood Count 4.55 M/mm3 (4.6-6.2); White Blood Count 7.3 K/mm3 (4.4-11.0)
[2024-09-18 10:22] LABS: Vitamin D,25 Hydroxy 55.6 ng/mL
[2024-09-18 10:44] LABS: ALB/GLOB Ratio 1.1 RATIO (0.9-2.4); AST(SGOT) 19 U/L (15-37); Alanine Aminotransfer ALT/SGPT 14 U/L (16-61); Albumin, Serum 3.7 g/dL (3.2-5.0); Alkaline Phosphatase 73 U/L (45-117); Anion Gap 5 (5-15); BUN 13 mg/dL (7-18); BUN/Creat Ratio 14.4 RATIO (10-20); Calcium,Total 9.1 mg/dL (8.5-10.1); Chloride 107 mmol/L (98-107); Cholesterol 197 mg/dL (200); EST Glomerular Filtration Rate 89 mL/min (>60); Est Glom Filt Rate - Afr Amer 108 mL/min (>60); Globulin 3.5 g/dL (2.2-4.2); Glucose 98 mg/dL (74-106); High Density Lipoprotein 62 mg/dL; PSA,Total - Annual Screen 1.36 ng/mL (0.00-4.00); Potassium 4.8 mmol/L (3.5-5.1); Protein, Total 7.2 g/dL (6.4-8.2); Sodium Level 139 mmol/L (136-145); T4 Free Direct 1.29 ng/dL (0.76-1.46); Triglycerides 68 mg/dL; Very Low Density Lipoprotein 14 mg/dL (5-40)
== END | disposition home or self-care (01) ==
LOC: MTLAB 08:31
PROVIDERS: PCP Family Medicine; Referring Provider Family Medicine; Visit Provider Family Medicine
DX: E78.5 Hyperlipidemia, unspecified (principal); E03.8 Other specified hypothyroidism; E55.9 Vitamin D deficiency, unspecified; Z12.5 Encounter for screening for malignant neoplasm of prostate
CPT/HCPCS: 36415; 80053; 80061; 82306; 84153; 84439; 84443; 85025; G0103

== ENCOUNTER → 2024-10-19 | Outpatient (CLI) | payer MEDICARE, SELFPAY ==
--- NOTE | 2024-10-19 08:01 | AAAS_ITS ---
Reason For Study: Screening for AAA Aorta Measurements Aorta Doppler Measurements Proximal aorta measures1.67 x 1.56cm. in cross- Peak systolic flow velocities within the proximal sectional axis. aorta measure 72.3 cm/sec. Proximal aorta measures1.61cm. in longitudinal Peak systolic flow velocities within the mid aorta axis. measure 74.1 cm/sec. Mid aorta measures1.69 x 1.55cm. in cross- Peak systolic flow velocities within the distal sectional axis. aorta measure 70.5 cm/sec. Mid aorta measures1.64cm. in longitudinal axis. Distal aorta measures1.49 x 1.51cm. in cross- sectional axis. Distal aorta measures1.51cm. in longitudinal axis. Left Iliac Artery Left iliac artery measures 0.94 x 0.93 cm. in the cross-sectional axis. Left iliac artery measures 0.91 cm. in the longitudinal axis. Peak systolic velocity in the left iliac artery measures 106.7 cm/sec. Right Iliac Artery Right iliac artery measures 1.01 x 1.02 cm. in the cross-sectional axis. Right iliac artery measures 1.02 cm. in the longitudinal axis. Peak systolic velocity in the right iliac artery measures 101.3 cm/sec. Procedure Aorta IVC Iliac vasculature or bypass grafts [id number]. Exam performed in department. VL/AAA Screening Interpretation Summary The dimensions of the intra-abdominal aorta appear normal, without evidence of aneurysmal dilatation. The iliac arteries are also normal in caliber bilaterally. The intr a-abdominal aorta and iliac arteries appear patent, demonstrating normal, pulsatile arterial flow and normal peak systolic velocities. Ordering Physician: Sourav Giraldo Referring Physician: Sourav Giraldo Performed By: Grazyna Olson RVT
== END | disposition home or self-care (01) ==
LOC: CVS 08:00
PROVIDERS: PCP Family Medicine; Referring Provider Family Medicine; Visit Provider Family Medicine
DX: Z13.6 Encounter for screening for cardiovascular disorders (principal); Z87.891 Personal history of nicotine dependence
CPT/HCPCS: 76706

== ENCOUNTER → 2024-10-26 | Outpatient (CLI) | payer MEDICARE, SELFPAY ==
--- NOTE | 2024-10-26 07:56 | CT_ITS ---
EXAM: CT CHEST, LUNG CANCER SCREENING WITHOUT INTRAVENOUS CONTRAST CLINICAL INDICATION: history of smoking TECHNIQUE: Helically acquired images were obtained of the chest without intravenous contrast using low dose (LDCT) lung cancer screening protocol. This CT exam was performed using one or more of the following dose reduction techniques: automated exposure control, adjustment of the mA and/or kV according to patient size, and/or use of iterative reconstruction technique. COMPARISON: CT Lung Cancer Screening dated 08/04/2023 and 06/12/2020 FINDINGS: LUNGS AND PLEURAL SPACES: Centrilobular and paraseptal emphysematous changes of the lungs again noted. No acute airspace opacification. No evidence of lung mass or suspicious pulmonary nodule. No pleural effusion or thickening. HEART: Coronary artery calcification again seen. No pericardial effusion. Normal heart size. MEDIASTINUM: Normal. No mediastinal or hilar adenopathy. Esophagus is unremarkable. No hiatal hernia. THYROID: Normal. No thyroid nodules or calcification. BONES/JOINTS: No suspicious lytic or blastic abnormality. SOFT TISSUES: Stable mild gynecomastia. VASCULATURE: No aortic aneurysm. LYMPH NODES: Normal. No enlarged lymph nodes. CT/Low Dose CT Lung Screening IMPRESSION: 1. No evidence of a lung mass or nodule. 2. Pulmonary emphysema. 3. Lung-RADS score: 1S - Additional clinically significant or potentially clinically significant findings are described. Recommend continued annual screening with a low-dose CT (LDCT) in 12 months. Electronically Signed: Missael Elena MD at 16:17 [facility] ,
--- NOTE | 2024-10-26 07:56 | CT_ITS ---
EXAM: CT CHEST, LUNG CANCER SCREENING WITHOUT INTRAVENOUS CONTRAST CLINICAL INDICATION: history of smoking TECHNIQUE: Helically acquired images were obtained of the chest without intravenous contrast using low dose (LDCT) lung cancer screening protocol. This CT exam was performed using one or more of the following dose reduction techniques: automated exposure control, adjustment of the mA and/or kV according to patient size, and/or use of iterative reconstruction technique. COMPARISON: CT Lung Cancer Screening dated 08/04/2023 and 06/12/2020 FINDINGS: LUNGS AND PLEURAL SPACES: Centrilobular and paraseptal emphysematous changes of the lungs again noted. No acute airspace opacification. No evidence of lung mass or suspicious pulmonary nodule. No pleural effusion or thickening. HEART: Coronary artery calcification again seen. No pericardial effusion. Normal heart size. MEDIASTINUM: Normal. No mediastinal or hilar adenopathy. Esophagus is unremarkable. No hiatal hernia. THYROID: Normal. No thyroid nodules or calcification. BONES/JOINTS: No suspicious lytic or blastic abnormality. SOFT TISSUES: Stable mild gynecomastia. VASCULATURE: No aortic aneurysm. LYMPH NODES: Normal. No enlarged lymph nodes. CT/Low Dose CT Lung Screening IMPRESSION: 1. No evidence of a lung mass or nodule. 2. Pulmonary emphysema. 3. Lung-RADS score: 1S - Additional clinically significant or potentially clinically significant findings are described. Recommend continued annual screening with a low-dose CT (LDCT) in 12 months. Electronically Signed: Missael Elena MD at 16:17 [facility] ,
== END | disposition home or self-care (01) ==
LOC: CT 07:56
PROVIDERS: PCP Family Medicine; Referring Provider Family Medicine; Visit Provider Family Medicine
DX: Z12.2 Encounter for screening for malignant neoplasm of respiratory organs (principal); Z87.891 Personal history of nicotine dependence
CPT/HCPCS: 71271

== ENCOUNTER → 2025-03-20 | Outpatient (CLI) | payer MEDICARE, SELFPAY ==
[2025-03-20 10:25] LABS: Absolute Lymphocyte Count 2.07 X10^3/uL (0.83-4.51); Basophil# 0.03 X10^3/uL; Basophil% 0.4 % (0-1); Eosinophil# 0.19 X10^3/uL; Eosinophils% 2.7 % (0-5); Hematocrit 42.1 % (40-54); Lymphocyte # 2.07 X10^3/ul (0.83-4.51); Lymphocyte % 29.4 % (19-41); Mean Corp Hgb Conc 33.3 g/dL (32-36); Mean Corpuscular Hgb 32.9 pg (27.0-32.0); Mean Corpuscular Volume 99.1 fL (80-94); Mean Platelet Vol. 10.6 fl (6.2-12.0); Monocyte# 0.74 X10^3/uL; Monocyte% 10.5 % (0-10); NRBC Flagged by Analyzer 0 % (0-5); Neutrophil % 56.9 % (47-70); Platelet Count 241 K/mm3 (150-450); RBC Distribution Width CV 12.3 % (11.6-14.6); RBC Distribution Width SD 44.6 fl (35.1-43.9); Red Blood Count 4.25 M/mm3 (4.6-6.2)
[2025-03-20 11:23] LABS: ALB/GLOB Ratio 1.5 RATIO (0.9-2.4); AST(SGOT) 17 U/L (<=37); Alanine Aminotransfer ALT/SGPT 12 U/L (<=46); Alkaline Phosphatase 67 U/L (40-129); Anion Gap 9 (5-15); BUN 14 mg/dL (4-19); BUN/Creat Ratio 15.4 RATIO (10-20); Calcium,Total 9.1 mg/dL (7.6-11.0); Carbon Dioxide 26.6 mmol/L (21.0-32.0); Chloride 103 mmol/L (98-108); Cholesterol 174 mg/dL (<=200); Creatinine, Serum 0.93 mg/dL (0.70-1.20); EST Glomerular Filtration Rate 90 (>60); Globulin 2.7 g/dL (2.2-4.2); Glucose 100 mg/dL (70-99); High Density Lipoprotein 49 mg/dL; Low Density Lipoprotein Calc. 113 mg/dL; Potassium 4.4 mmol/L (3.3-5.1); Protein, Total 6.7 g/dL (5.9-8.4); Sodium Level 139 mmol/L (133-145); Total Bilirubin 0.89 mg/dL (0.00-1.30); Triglycerides 61 mg/dL; Very Low Density Lipoprotein 12 mg/dL (5-40); cholesterol:hdl ratio screen 3.55
[2025-03-22 16:07] LABS: Hemoglobin A1c 5.6 % (<=5.6)
== END | disposition home or self-care (01) ==
LOC: MFPLAB 08:28
PROVIDERS: PCP Family Medicine; Referring Provider Family Medicine; Visit Provider Family Medicine
DX: E03.8 Other specified hypothyroidism (principal); E78.5 Hyperlipidemia, unspecified; R73.09 Other abnormal glucose
CPT/HCPCS: 36415; 80053; 80061; 83036; 84439; 84443; 85025